=== PATIENT | male | born 1970 | race Caucasian/White ===

== ENCOUNTER 2017-04-01 16:19 | Emergency (ER) | payer BC, OTHER ==
[~2017-04-01] VITALS: Ht 185.4 cm; Wt 118.0 kg
[~2017-04-01 16:19] MED LIST: ASPEC81 PO; CIPR-255 PO; KETO2CRE14 TOP; NTRSLP4 SL; TERB250T47 PO
[2017-04-01 16:23] VITALS: TEMP 36.8; Ht 185.4 cm; Wt 118.0 kg
[2017-04-01] MEDS ORDERED: HYDROCODONE/ACETAMOPHEN 5/325MG TAB PO STA (16:50)
--- NOTE | 2017-04-01 17:53 | DIAGNOSTIC IMAGING REPORT ---
LEFT FOOT 3 VIEWS HISTORY: fall, left foot injury COMPARISON: Left foot 08/04/2015. FINDINGS: There are fractures through the necks of the second through fifth metatarsals demonstrating mild lateral displacement and lateral angulation. This is most pronounced at the fourth metacarpal. The Lisfranc joint appears intact. Soft tissue swelling at the MTP joints. No radiopaque foreign bodies. IMPRESSION: Distal second through fifth metatarsal fractures. Electronically signed by: Eron Holland M.D. 04/01/2017 5:52 PM Dictated Date/Time: 04/01/2017 5:50 PM
--- NOTE | 2017-04-01 17:55 | DIAGNOSTIC IMAGING REPORT ---
LUMBAR SPINE 5 VIEWS HISTORY: fall, back pain COMPARISON: Lumbar spine 05/26/2014. FINDINGS: There is no fracture. No subluxation. There is posterior decompression and fusion from L3 through S1 with pedicle screws and rods. The hardware appears intact. Mild disc space narrowing at L1-L2 and L2-L3. IMPRESSION: No acute fracture or subluxation within the lumbar spine. Postoperative and degenerative changes are again noted. Electronically signed by: Eron Holland M.D. 04/01/2017 5:54 PM Dictated Date/Time: 04/01/2017 5:52 PM
[2017-04-01] MEDS ORDERED: MoRPHine SULFATE 10 MG/ML CARP/VIAL IM STA (18:53)
--- NOTE | 2017-04-01 18:57 | EMERGENCY ROOM VISIT NOTE ---
ED Visit Note First contact with patient: 16:26 CHIEF COMPLAINT: Foot pain HISTORY OF PRESENT ILLNESS: This 46-year-old male patient presents to the emergency department ambulatory complaining of left foot pain and low back pain after a fall which occurred earlier today. The patient states that he was fishing and standing on a rock when the rock kicked out from under him and he fell, rolling the left foot and falling onto the low back. The patient rates the pain as sharp and 10/10. The patient has knots take any medication for relief of the pain. The patient is able to walk. No numbness or weakness. No ankle pain. There are no lacerations of the foot. The patient is able to move all of their toes and their ankle without pain. Now previous fracture to this foot. He denies any other injuries. REVIEW OF SYSTEMS: GENERAL: A 6 system review of systems was completed with positives and pertinent negatives in the HPI. ALLERGIES: Penicillins MEDICATIONS: No chronic medications PMH: No significant past medical history. SOCIAL HISTORY: The patient lives locally with family. He is a smoker. PHYSICAL EXAM: Vital Signs: Reviewed Nurse's notes, vital signs stable. GENERAL : This is a 46-year-old male, in no acute distress, but appears in pain, well- developed, well-nourished. MUSCULOSKELETAL: There is no visual deformity of the left foot. There is a hematoma over the lateral aspect of the dorsal left foot with significant tenderness over the second through fifth MTPs. There are no lacerations. There is no tenderness over the lateral or medial malleolus. No tenderness of the tib/fib. Patient is able to move all toes. Normal sensation to touch over the toes. The skin is intact and there are no lacerations or puncture wounds. Dorsalis pedis pulse 2+. Capillary refill less than 2 seconds. There is mild tenderness to palpation of the lumbar spinous processes. Full range of motion of bilateral lower extremity. RADIOGRAPHIC FINDINGS: LEFT FOOT 3 VIEWS HISTORY: fall, left foot injury COMPARISON: Left foot 08/04/2015. FINDINGS: There are fractures through the necks of the second through fifth metatarsals demonstrating mild lateral displacement and lateral angulation. This is most pronounced at the fourth metacarpal. The Lisfranc joint appears intact. Soft tissue swelling at the MTP joints. No radiopaque foreign bodies. IMPRESSION: Distal second through fifth metatarsal fractures. LUMBAR SPINE 5 VIEWS HISTORY: fall, back pain COMPARISON: Lumbar spine 05/26/2014. FINDINGS: There is no fracture. No subluxation. There is posterior decompression and fusion from L3 through S1 with pedicle screws and rods. The hardware appears intact. Mild disc space narrowing at L1-L2 and L2-L3. IMPRESSION: No acute fracture or subluxation within the lumbar spine. Postoperative and degenerative changes are again noted. EMERGENCY DEPARTMENT COURSE: I examined the patient. He was given 1 tablet [place] for pain. An X-ray of the left foot and lumbar spine were reviewed by myself and radiology and reveal the above fractures of the foot. The patient stated that he was not able to have his foot splinted until he received further medication and at that time was given IM morphine. The patient was placed in an Ortho-Glass posterior short leg splint and instructed on the use of crutches. He was referred to orthopedics. He was given a prescription and home pack of [place]. [facility] no [facility] identified. The patient verbalized understanding of my assessment and treatment plan. The patient was discharged home in good condition. DIAGNOSIS: Metatarsal fractures, lumbar contusion Problem List Medical Problems: (1) back surgery 05/13/2012 Status: Resolved (2) Fusion of posterior lumbar spine Status: Resolved (3) Heart disease Status: Chronic (4) Hyperlipidemia Nec/Nos Status: Chronic (5) Influenza Status: Resolved (6) Low back pain Status: Resolved (7) LUMBAR DISC DISPLACEMENT Status: Resolved (8) SPINAL STENOSIS, LUMBAR REG, W/OUT NEUROGENIC CLAUDICATION Status: Resolved (9) SPONDYLOLISTHESIS Status: Resolved Surgical Problems: (1) History of cardiac catheterization Status: Resolved Current/Historical Medications Scheduled PRN Hydrocodone-Acetaminophen (Lortab 5-325 mg), 1-2 TABS PO Q4-6 PRN for Pain Allergies Coded Allergies: Penicillins (Verified Allergy, Mild, PT STATES UNKNOWN REACTION, 04/02/17) RECEIVED ROCEPHIN X1 DOSE IN ED 07/2015 Vital Signs Date Time Temp Pulse Resp B/P Pulse Ox O2 Delivery O2 Flow Rate FiO2 04/01/17 19:37 112 20 116/86 97 04/01/17 16:23 36.8 89 16 161/95 98 Room Air Medications Administered Medications (Trade) Dose Ordered Sig/Sydni Route Start Time Stop Time Status Last Admin Dose Admin Acetaminophen/ Hydrocodone Bitart ([place] 5/325 Tab) 1 tab NOW STAT PO 04/01/17 16:50 04/01/17 16:51 DC 04/01/17 17:39 1 TAB Morphine Sulfate (MoRPHine SULFATE INJ) 6 mg NOW STAT IM 04/01/17 18:53 04/01/17 18:54 DC 04/01/17 19:00 6 MG Oxycodone/ Acetaminophen (Percocet 5/ 325MG Home Pack) 1 homepack UD ONCE PO 04/01/17 19:00 04/01/17 19:01 DC 04/01/17 19:26 1 HOMEPACK Departure Information Impression Primary Impression: Multiple closed fractures of metatarsal bone of left foot Additional Impression: Lumbar contusion Dispostion Home / Self-Care Condition GOOD Referrals No Doctor, Assigned (PCP) Ollie Thayer M.D. Patient Instructions My [facility] Additional Instructions You have been treated in the Emergency Department for a foot fracture. You have received pain medicine in the emergency department which impairs your ability to operate a vehicle. It is illegal for you to drive after receiving these medicines. You have been prescribed Percocet to be used for pain control. This is a narcotic medication. You cannot drive or consume alcohol while on this medicine. This medicine should only be used for pain that cannot be controlled with momo-pew-yiovpns pain medicines. For pain control, you can use the following zbwz-zcy-omdrusk medicines (if >12 yo): - Regular strength (325mg/tab) Tylenol (acetaminophen) 2 tabs every 4-6 hours as needed. Do not exceed 12 tablets in a 24 hour period. Avoid taking more than 4 grams (4000 mg) of Tylenol per day. This includes any other sources of acetaminophen you may take on a regular basis. - Regular strength (200 mg/tab) Advil (ibuprofen) 1-2 tabs every 4-6 hours as needed. Do not exceed a dose of 3200 mg per day. If this is a recent injury (<24 hrs), ice can be applied to the area of pain for the first 3 days to help decrease pain and inflammation. You have been provided the number for an Orthopaedic Surgeon. You should call this number as soon as possible to establish a follow-up visit from today's Emergency Department visit. Keep the ankle brace/splint in place until cleared by Orthopedics. Use the crutches you have been provided to keep ALL weight off of the ankle until weight bearing is tolerable. Return to the Emergency Department if your current symptoms worsen despite treatment course outlined above, or if you develop any of the following symptoms : intractable pain despite aforementioned treatment course or new onset of numbness or tingling of the foot. Problem Qualifiers Primary Impression: Multiple closed fractures of metatarsal bone of left foot Encounter type: initial encounter Qualified Codes: S92.302A - Fracture of unspecified metatarsal bone(s), left foot, initial encounter for closed fracture Additional Impression: Lumbar contusion Encounter type: initial encounter Qualified Codes: S30.0XXA - Contusion of lower back and pelvis, initial encounter
[2017-04-01] MEDS ORDERED: PERCOCET HOME PACK PO ONE (19:00)
[2017-04-01 19:37] VITALS: BP 116/86; PULSE 112; O2SAT 97
[2017-04-02] MEDS ORDERED: HYDR-4330 PO (13:41)
== END 2017-04-01 19:38 | disposition home or self-care (01) ==
LOC: C.EDB 16:20 → C.EDD 19:38
DX: S92.322A Displaced fracture of second metatarsal bone, left foot, initial encounter for closed fracture (principal); S92.332A Displaced fracture of third metatarsal bone, left foot, initial encounter for closed fracture; S92.342A Displaced fracture of fourth metatarsal bone, left foot, initial encounter for closed fracture; S92.352A Displaced fracture of fifth metatarsal bone, left foot, initial encounter for closed fracture; S30.0XXA Contusion of lower back and pelvis, initial encounter; W19.XXXA Unspecified fall, initial encounter; F17.200 Nicotine dependence, unspecified, uncomplicated; E78.5 Hyperlipidemia, unspecified; I51.9 Heart disease, unspecified; M48.06 Spinal stenosis, lumbar region; Z98.1 Arthrodesis status; Z98.890 Other specified postprocedural states; Z88.0 Allergy status to penicillin

== ENCOUNTER → 2017-04-02 | Outpatient (CLI) | payer BC ==
[~2017-04-02] MED LIST changes: +AMLO-110 PO; +ASPI81TA28 PO; +ATOR-22 PO; +CLIN300C2 PO; +HYDR-4330 PO; +METO25TA3 PO; +OXYC-57 PO; +SULF800T23 PO
--- NOTE | 2017-04-02 10:54 | DIAGNOSTIC IMAGING REPORT ---
LEFT FOOT 2 VIEWS CLINICAL HISTORY: Left foot metatarsal fractures. COMPARISON: 04/01/2017 DISCUSSION: Oblique views are provided for interpretation. There is a fiberglass splint present. There are fractures of the second through fifth metatarsal necks. There is dorsal soft tissue swelling. IMPRESSION: Oblique only study demonstrating fractures of the second through fifth metatarsal necks. Electronically signed by: David Khalil M.D. 04/02/2017 10:53 AM Dictated Date/Time: 04/02/2017 10:51 AM
--- NOTE | 2017-04-02 12:16 | DIAGNOSTIC IMAGING REPORT ---
LEFT FOOT 2 VIEWS CLINICAL HISTORY: WEIGHT BEARING B/L FEET pain. Preoperative evaluation. Fracture. COMPARISON: 04/01/2017 DISCUSSION: Angled fractures of the left second through fifth distal metatarsals. Bony alignment is unchanged with the patient standing projections. No additional acute bony abnormalities identified. There is no evidence for soft tissue swelling. IMPRESSION: Angled fractures of the second through fifth metatarsals. No major change in alignment as compared to the prior exam. Electronically signed by: Rich Davidson M.D. 04/02/2017 12:15 PM Dictated Date/Time: 04/02/2017 12:13 PM
== END | disposition home or self-care (01) ==
LOC: C.RDSM 13:31
PROVIDERS: ATTEND Physician Assistant
DX: S92.342A Displaced fracture of fourth metatarsal bone, left foot, initial encounter for closed fracture (principal); S92.322A Displaced fracture of second metatarsal bone, left foot, initial encounter for closed fracture; S92.332A Displaced fracture of third metatarsal bone, left foot, initial encounter for closed fracture; S92.352A Displaced fracture of fifth metatarsal bone, left foot, initial encounter for closed fracture; X58.XXXA Exposure to other specified factors, initial encounter

== ENCOUNTER → 2017-04-02 | Outpatient (CLI) | payer BC ==
[2017-04-02 13:22] LABS: HEMATOCRIT 43.3 % (42-52); MEAN CELL VOLUME 93.3 fL (80-100); MEAN CORPUSCULAR HGB CONC 33.3 g/dl (32-36); PLATELET COUNT 238 K/uL (130-400); RED BLOOD COUNT 4.64 M/uL (4.7-6.1); WHITE BLOOD COUNT 12.48 K/uL (4.8-10.8)
[2017-04-02 14:08] LABS: BLOOD UREA NITROGEN 9 mg/dl (7-18); CARBON DIOXIDE 25 mmol/L (21-32); CHLORIDE 106 mmol/L (98-107); CREATININE 0.93 mg/dl (0.60-1.40); POTASSIUM 4.2 mmol/L (3.5-5.1); SODIUM 139 mmol/L (136-145)
== END | disposition home or self-care (01) ==
LOC: C.CPL 12:30
PROVIDERS: ATTEND Physician Assistant
DX: S92.342A Displaced fracture of fourth metatarsal bone, left foot, initial encounter for closed fracture (principal); X58.XXXA Exposure to other specified factors, initial encounter

== ENCOUNTER → 2017-04-03 | Day surgery (SDC) | payer BC ==
[2017-04-02 13:42] VITALS: BMI 34.0
[~2017-04-03] VITALS: Ht 185.4 cm; Wt 115.9 kg
[~2017-04-03] MED LIST changes: -ASPEC81 PO; +BUPIVACAINE 0.5 % 5 MG/1 ML MPF 30ML VIAL ONE; +BUPIVACAINE 0.5 % 5 MG/1 ML PF 10ML VIAL ONE; -CIPR-255 PO; +CLINDAMYCIN 900MG IV SCH; +CLINDAMYCIN IV 900 MG in DEXTROSE 5% ADD-VANTAGE 100ML 100 ML IV SCH; +CLONIDINE HCL 100 MCG/ML SYRINGE ONE; +DEXAMETHASONE SOD INJ 4 MG/ML VIAL ONE; +FENTANYL CITRATE INJ 50 MCG/1 ML 2 ML VIAL IV PRN; +FENTANYL CITRATE INJ 50 MCG/1 ML 2 ML VIAL ONE; +GLYCOPYRROLATE INJ 0.2 MG/ML VIAL ONE; -KETO2CRE14 TOP; +LACTATED RINGER'S 1000ML 1,000 ML IV PRN; +LACTATED RINGER'S 1000ML 1,000 ML IV SCH; +LIDOCAINE HCL 2% 2 ML VIAL (20MG/ML) ONE; +LIDOCAINE/EPINEPHRINE 1% 20 ML VIAL ONE; +MIDAZOLAM HCL 1 MG/ML 2ML VIAL ONE; +MoRPHine SULFATE 2 MG/ML CARP IV PRN; +NEOSTIGMINE METHYLSULFATE 5 MG/5 ML SYR ONE; -NTRSLP4 SL; +ONDANSETRON INJ 2 MG/ML 2 ML VIAL IV PRN; +ONDANSETRON INJ 2 MG/ML 2 ML VIAL ONE; +OXYCODONE/ACETAMINOPHEN 5-325 TAB PO PRN; +PHENYLEPHRINE HCL INJ 10 MG/ML VIAL ONE; +PROPOFOL IV EMULSION 10 MG/ML 20 ML VIAL IV ONE; +ROCURONIUM BROMIDE 10 MG/ML 5 ML VIAL ONE; +SODIUM CHLORIDE 0.9% 1000ML 1,000 ML IV SCH; -TERB250T47 PO
--- NOTE | 2017-04-03 09:32 | History and Physical ---
History & Physical Date April 03, 2017. Chief Complaint Left foot pain History of Present Illness The patient is a 46 year old male with complaints of left foot pain s/p fall while fishing. Admits to pain, swelling, and inability to bear full weight. No prior history of injury to left lower extremity in the past. Denies numbness or tingling, no calf pain. Past Medical/Surgical History Medical Problems: (1) back surgery 05/13/2012 (2) Fusion of posterior lumbar spine (3) Heart disease (4) Hyperlipidemia Nec/Nos (5) Influenza (6) Low back pain (7) LUMBAR DISC DISPLACEMENT (8) SPINAL STENOSIS, LUMBAR REG, W/OUT NEUROGENIC CLAUDICATION (9) SPONDYLOLISTHESIS Surgical Problems: (1) History of cardiac catheterization (2) Lumbar spine fusion (3) Right wrist ORIF Family History: (1) Noncontributory Social History: (1) Smokes 1/2 pack cigarettes over past 27 years, no ETOH or illegal drug use. Currently disabled due to his back issues. Additional History Hepatic Disease: No Endocrine Disorder: No Kidney Disease: No Hypertension: No Heart Disease: No Bleeding Tendencies: No Infectious Diseases: No Other: Denies headache, chest pain, shortness of breath, fevers, chills, night sweats. Allergies Coded Allergies: Penicillins (Verified Allergy, Mild, PT STATES UNKNOWN REACTION, 04/02/17) RECEIVED ROCEPHIN X1 DOSE IN ED 07/2015 Home Medications Scheduled PRN Hydrocodone-Acetaminophen (Lortab 5-325 mg), 1-2 TABS PO Q4-6 PRN for Pain Physical Examination Skin: warm/dry, + pertinent finding (notable swelling and eccymosis) Eyes: normal inspection ENT: normal ENT inspection Head: normocephalic Neck: supple, no adenopathy Respiratory/Chest: lungs clear Cardiovascular: regular rate, rhythm, no edema, no murmur Abdomen / GI: normal bowel sounds, non tender Extremities: + pertinent finding (tenderness over metatarsal heads 2-5 both volar and dorsal aspect, ankle atraumatic) Neurologic/Psych: no motor/sensory deficits, oriented x 3 Diagnosis Left foot metatarsal fractures two through five Plan of Treatment Fern will undergo a left foot open reduction internal fixation versus closed reduction percutaneous pinning of multiple metatarsal fractures two through five , scheduled for5/16/17 at the [facility]. He obtain preop lab testing at the [facility] outpatient lab, including EKG, CBC, Lytes, BUN, Creatinine. Percocet prescribed for post op pain. PDMP reviewed and no issues regarding prescription drugs being dispensed. Crutches and walker available at home. Follow up at [facility] 04/06/17 and 04/17/17. Questions call [phone].
[2017-04-03 11:52] VITALS: BP 132/89; PULSE 89; TEMP 36.8; O2SAT 95; Ht 185.4 cm; Wt 115.9 kg
--- NOTE | 2017-04-03 12:56 | History & Physical Bridge Note ---
H&P Re-Evaluation Bridge Note: I have examined the patient, reviewed the History & Physical and in the interval since the performance of the History & Physical I have noted the following changes of clinical significance: No changes noted
--- NOTE | 2017-04-03 15:25 | DIAGNOSTIC IMAGING REPORT ---
LEFT FOOT 2 VIEWS CLINICAL HISTORY: ORIF LEFT FOOT fracture COMPARISON: 04/02/2017 DISCUSSION: Pin fixation of the fracture of the distal fourth metatarsal. Remaining distal metatarsal fractures are unchanged in appearance. There is no evidence for soft tissue swelling. IMPRESSION: Pin fixation of a distal fourth metatarsal fracture Electronically signed by: Rich Davidson M.D. 04/03/2017 3:24 PM Dictated Date/Time: 04/03/2017 3:22 PM
--- NOTE | 2017-04-03 15:35 | Discharge Instructions ---
Discharge Instructions Date of Service April 03, 2017. Admission Reason for Admission: Left Foot Metatarsal Fracture 2-5 Discharge Discharge Diagnosis / Problem: same Discharge Goals Goal(s): Decrease discomfort, Improve function, Increase independence Activity Recommendations Activity Limitations: as noted below Lifting Limitations: none Exercise/Sports Limitations: none May Resume Sexual Activity: when tolerated Shower/Bathe: no limitations, keep incision dry Driving or Machine Use: resume 1 day after discharge Weightbearing Status: Left weightbearing (as tolerated) keep foot dry, you may bear weight on your heel in the special boot, use crutches or walker, elevate, ice . Instructions / Follow-Up Instructions / Follow-Up Sunday as scheduled Current Hospital Diet resume previous diet Discharge Diet Recommended Diet: Regular Diet Procedures Procedures Performed: Closed Reduction, Percutaneous Pinning Left Metatarsals 2-5 Pending Studies Studies pending at discharge: no Work Instructions Lifting Limitations: none Medical Emergencies . Who to Call and When: Medical Emergencies: If at any time you feel your situation is an emergency, please call 911 immediately. . Non-Emergent Contact Non-Emergency issues call your: Primary Care Provider, Surgeon Call Non-Emergent contact if: you have a fever, temperature is above 101.5, your pain is not controlled, your pain is worsening, your pain is concerning you , wound has increased drainage, wound has increased redness, you have any medication questions . "Provider Documentation" section prepared by Dino Akins. . VTE Core Measure Inpt VTE Proph given/why not?: Treatment not indicated
--- NOTE | 2017-04-03 15:38 | [facility] Post Operative Brief Note ---
Immediate Operative Summary Operative Date April 03, 2017. Pre-Operative Diagnosis Left metatarsal fractures of 2nd, third, fourth, and fifth toes Post-Operative Diagnosis Same Procedure(s) Performed Closed Reduction, Percutaneous Pinning Left fourth Metatarsal Surgeon Dr Akins Crutch Maker Surgeon(s) Victor Manuel Sweet PA-C / Des Hodge MD Estimated Blood Loss 5 cc Findings metatarsal fractures 2-5 Specimens NONE Drains 0 Anesthesia LMA with popliteal block Complication(s) None Disposition Recovery Room / PACU
--- NOTE | 2017-04-03 15:48 | [facility] Operative Report ---
Operative Report Operative Date April 03, 2017. Pre-Operative Diagnosis Left metatarsal fractures of 2nd, third, fourth, and fifth toes Post-Operative Diagnosis Same Procedure(s) Performed Closed Reduction, Percutaneous Pinning Left fourth Metatarsal Surgeon Dr Akins Grid Trimmer Surgeon(s) Victor Manuel Sweet PA-C / Des Hodge MD Estimated Blood Loss 5 cc Specimens NONE Disposition PCU I attest to the content of the Intraoperative Record and any orders documented therein. Any exceptions are noted below.
--- NOTE | 2017-04-03 16:01 | Anesthesiology Progress Note ---
Anesthesia Post Op Note Date & Time April 03, 2017 at 16:00 Vital Signs Pain Intensity: 0 Vital Signs Past 12 Hours Date Time Temp Pulse Resp B/P Pulse Ox O2 Delivery O2 Flow Rate FiO2 04/03/17 15:55 73 18 125/85 99 Nasal Cannula 3 04/03/17 15:45 70 14 126/87 99 Nasal Cannula 3 04/03/17 15:35 80 16 135/83 99 Nasal Cannula 3 04/03/17 15:28 36.6 82 16 130/88 99 Nasal Cannula 3 04/03/17 11:52 36.8 89 20 132/89 95 Notes Mental Status: alert / awake / arousable, participated in evaluation Pt Amnestic to Procedure: Yes Nausea / Vomiting: adequately controlled Pain: adequately controlled Airway Patency, RR, SpO2: stable & adequate BP & HR: stable & adequate Hydration State: stable & adequate Anesthetic Complications: no major complications apparent Pt doing well. No pain.
[2017-04-03 16:15] VITALS: BP 118/81; PULSE 67; TEMP 36.5; O2SAT 97
[2017-04-03 16:45] VITALS: BP 130/88; PULSE 82; O2SAT 98
[2017-04-03 17:15] VITALS: BP 142/85; PULSE 76; TEMP 36.6; O2SAT 96
--- NOTE | 2017-04-03 17:16 | OPERATIVE REPORT ---
DATE OF OPERATION: 04/03/2017 PREOPERATIVE DIAGNOSIS: Left foot second through fifth metatarsal neck fractures. POSTOPERATIVE DIAGNOSIS: Same. PROCEDURE PERFORMED: Closed reduction percutaneous pinning of the left foot fourth metatarsal neck fracture. SURGEON: Dr. Akins. BUSGIRL: Des Hodge MD and Victor Manuel Sweet PA-C ANESTHESIA: Popliteal block, laryngeal mask anesthetic. INDICATIONS OF PROCEDURE: The patient is a 46-year-old male status post a fall resulting in the aforementioned injuries. The second and fifth metatarsal neck fractures are well aligned. The third is mildly displaced. The fourth is markedly displaced and angulated. The goals of the surgical procedure are to do closed reduction percutaneous pinning of the fourth metatarsal neck fracture either in a retrograde or antegrade fashion. Treatment of the third metatarsal or others may be necessary as indicated based upon preoperative findings. The procedure was moved to the main hospital from the surgery center due to staff scheduling. PROCEDURE IN DETAIL: Informed consent was obtained. The patient identified as Lesley Pride. He identified the operative site as the left foot. I marked with my initials. A preop surgical time out was performed. A preop dose of IV antibiotics were given. He was taken to the operating room, positioned supine on the operating room table. A bump was placed under the left hip. A tourniquet was applied to the left thigh but not inflated during the case. The left leg was prepped and draped in the usual sterile fashion. There was some bruising on the plantar and dorsal aspect of the forefoot with swelling. Prior to surgery, he had intact capillary refill less than 2 seconds in all toes, tenderness to palpation mainly in the forefoot area. DVT prophylaxis intraoperatively with foot pumps, postoperatively with early patient mobility. The procedure began by applying fingertrap traction to the 4th and 3rd digits. The fourth was aided by prewrapping it in a Coban to give it greater diameter and increase traction. AP fluoroscopic image was utilized to localize the fracture. There appeared to be some capsular injury to the fourth metatarsophalangeal joint as there was distraction through the joint asymmetric to the adjacent metatarsophalangeal joints and less correction of fracture angulation. A 0.045 inch K-wire was then under fluoroscopic guidance percutaneously placed by hand dorsally and laterally to push the metatarsal head medially. This was accomplished and a second pin was then used to transfix this in position. The pin was placed plantar and lateral and engaged the metatarsal head. Dorsal displacement of the metatarsal neck fracture was also corrected with a percutaneous anterior pin. The fixation pin was then driven across the metatarsal head and into the adjacent metatarsal shaft. The positioning of the pin was such that it was as far to the periphery of the head as possible. The angulation of the pin was such that it likely missed the shaft of the fourth metatarsal, but engaged the third metatarsal in a bicortical fashion. Fluoroscopic images confirmed that the angulation and displacement had been corrected, the length was well maintained and the pin was in good position in AP, lateral and oblique fluoroscopic images. I then placed an additional pin percutaneously through the plantar and medial aspect of the fourth metatarsophalangeal joint engaging the medial sulcus of the head and then transversing up the shaft of the fourth metatarsal. This resulted in additional fixation. A 0.045 inch K-wire was utilized. Positioning was confirmed in multiplanar fluoroscopy. The second and fifth metatarsal neck fracture remained anatomically aligned, the third metatarsal neck fracture showed a trace bit of shortening, but otherwise minimal displacement and no significant angulation and therefore these other fractures were left as is. Heeler Machine fluoroscopic images were obtained. The foot was cleaned with wet and dry sponges. Jurgan balls were applied. The pins were cut outside the skin and bent short as necessary. A bulky dressing to protect the pins and promote edema drainage was applied over the foot and up to the ankle. There were fluffs placed between the toes. The patient was then applied into a podiatry type open forefoot shoe with a ring around the forefoot to protect the pins and a buildup pad under the heel to allow weightbearing through the heel. The patient awakened from anesthesia without difficulty, taken to recovery in stable condition. There were no specimens, complications. Counts were correct at the end of case. Blood loss was minimal. At the conclusion of the operation, I spoke to patient's family by phone and discussed with them my findings and recommendations. He will need to elevate and ice. He will take his medication for pain. He can shower but will need to keep the foot clean and dry. He will follow up Sunday for wound check and pin care. The pins will be left in for 3-4 weeks. He may bear weight as tolerated using crutches or walker on his heel. I attest to the content of the Intraoperative Record and any orders documented therein. Any exceptio ns are noted below.
== END | disposition home or self-care (01) ==
LOC: C.ACU 11:22
PROVIDERS: ATTEND Physical Medicine & Rehabilitation Sports Medicine
DX: S92.332A Displaced fracture of third metatarsal bone, left foot, initial encounter for closed fracture (principal); S92.342A Displaced fracture of fourth metatarsal bone, left foot, initial encounter for closed fracture; S92.325A Nondisplaced fracture of second metatarsal bone, left foot, initial encounter for closed fracture; S92.345A Nondisplaced fracture of fourth metatarsal bone, left foot, initial encounter for closed fracture; W19.XXXA Unspecified fall, initial encounter; E78.5 Hyperlipidemia, unspecified; F17.210 Nicotine dependence, cigarettes, uncomplicated; Z98.1 Arthrodesis status

== ENCOUNTER → 2017-04-06 | Outpatient (CLI) | payer BC ==
[~2017-04-06] MED LIST changes: -BUPIVACAINE 0.5 % 5 MG/1 ML MPF 30ML VIAL ONE; -BUPIVACAINE 0.5 % 5 MG/1 ML PF 10ML VIAL ONE; -CLINDAMYCIN 900MG IV SCH; -CLINDAMYCIN IV 900 MG in DEXTROSE 5% ADD-VANTAGE 100ML 100 ML IV SCH; -CLONIDINE HCL 100 MCG/ML SYRINGE ONE; -DEXAMETHASONE SOD INJ 4 MG/ML VIAL ONE; -FENTANYL CITRATE INJ 50 MCG/1 ML 2 ML VIAL IV PRN; -FENTANYL CITRATE INJ 50 MCG/1 ML 2 ML VIAL ONE; -GLYCOPYRROLATE INJ 0.2 MG/ML VIAL ONE; -LACTATED RINGER'S 1000ML 1,000 ML IV PRN; -LACTATED RINGER'S 1000ML 1,000 ML IV SCH; -LIDOCAINE HCL 2% 2 ML VIAL (20MG/ML) ONE; -LIDOCAINE/EPINEPHRINE 1% 20 ML VIAL ONE; -MIDAZOLAM HCL 1 MG/ML 2ML VIAL ONE; -MoRPHine SULFATE 2 MG/ML CARP IV PRN; -NEOSTIGMINE METHYLSULFATE 5 MG/5 ML SYR ONE; -ONDANSETRON INJ 2 MG/ML 2 ML VIAL IV PRN; -ONDANSETRON INJ 2 MG/ML 2 ML VIAL ONE; -OXYCODONE/ACETAMINOPHEN 5-325 TAB PO PRN; -PHENYLEPHRINE HCL INJ 10 MG/ML VIAL ONE; -PROPOFOL IV EMULSION 10 MG/ML 20 ML VIAL IV ONE; -ROCURONIUM BROMIDE 10 MG/ML 5 ML VIAL ONE; -SODIUM CHLORIDE 0.9% 1000ML 1,000 ML IV SCH
--- NOTE | 2017-04-06 10:50 | DIAGNOSTIC IMAGING REPORT ---
LEFT FOOT 4 VIEWS CLINICAL HISTORY: Postoperative examination. FINDINGS: 4 views of left foot are compared to study dated 04/02/2017. The skeletal structures are well mineralized. Again seen are angulated fractures involving the necks of the second through fifth metatarsals. 2 pins have been placed through the fourth metatarsal fracture. There is persistent angulation. No new fracture is seen. There is significant soft tissue edema in the forefoot. The joint spaces of the foot appear maintained. There is no radiographic evidence of Lisfranc injury. IMPRESSION: 1. Again seen are angulated fractures through the second through fifth metatarsal necks. 2. Postoperative change from pinning of the fourth metatarsal fracture as above. Electronically signed by: Philipp Nunez M.D. 04/06/2017 10:49 AM Dictated Date/Time: 04/06/2017 10:47 AM
== END | disposition home or self-care (01) ==
LOC: C.RDSM 14:39
PROVIDERS: ATTEND Physician Assistant
DX: S92.342D Displaced fracture of fourth metatarsal bone, left foot, subsequent encounter for fracture with routine healing (principal); X58.XXXA Exposure to other specified factors, initial encounter

== ENCOUNTER → 2017-04-17 | Outpatient (CLI) | payer BC | END | disposition home or self-care (01) | LOC: C.RDSM 10:10 | PROVIDERS: ATTEND Physical Medicine & Rehabilitation Sports Medicine | DX: R52 Pain, unspecified (principal) ==

== ENCOUNTER → 2017-04-30 | Outpatient (CLI) | payer BC | END | disposition home or self-care (01) | LOC: C.RDSM 15:36 | PROVIDERS: ATTEND Physical Medicine & Rehabilitation Sports Medicine | DX: Z98.890 Other specified postprocedural states (principal) ==

== ENCOUNTER 2017-05-20 20:00 | Emergency (ER) | payer BC ==
[~2017-05-20] VITALS: Ht 182.9 cm; Wt 118.0 kg
[~2017-05-20 20:00] MED LIST changes: -AMLO-110 PO; -ASPI81TA28 PO; -ATOR-22 PO; -CLIN300C2 PO; -METO25TA3 PO; -OXYC-57 PO; -SULF800T23 PO
[2017-05-20 20:02] VITALS: Ht 182.9 cm; Wt 118.0 kg
[2017-05-20] MEDS ORDERED: SEPTRA DS HOME PACK 1 EA VIAL PO STA (20:36)
[2017-05-20] MEDS ORDERED: SULF800T23 PO (20:40)
--- NOTE | 2017-05-20 20:41 | EMERGENCY ROOM VISIT NOTE ---
History First contact with patient: 20:06 Chief Complaint: RASH Stated Complaint: RASH ON LEFT FOOT History of Present Illness The patient is a 46 year old male who presents to the Emergency Room with complaints of "Rash". The patient states that he has been wearing a postop shoe on his left foot following a surgery that was performed by [facility] orthopedics. He states that he has been healing well, however the past [place] in the [place]. He states that he developed a small rash on the left anterior foot over the past few days and has been worsening. His accompanying states that they did remove what they believe to be a poison relief from the shoe. The patient points to the anterior portion of the foot small little pustules as a location of pain that he rates as a 6/10. He states he has tried calamine lotion, and peroxide with minimal relief. His tetanus is up-to-date. He denies any easy bleeding, or bleeding from the gums. Review of Systems A complete 6-point Review of Systems was discussed with the patient, with pertinent positives and negatives listed in the History of Present Illness. All remaining Review of Systems questions can be considered negative unless otherwise specified. Past Medical/Surgical History Medical Problems: (1) back surgery 05/13/2012 (2) Fusion of posterior lumbar spine (3) Heart disease (4) Hyperlipidemia Nec/Nos (5) Influenza (6) Low back pain (7) LUMBAR DISC DISPLACEMENT (8) SPINAL STENOSIS, LUMBAR REG, W/OUT NEUROGENIC CLAUDICATION (9) SPONDYLOLISTHESIS Surgical Problems: (1) History of cardiac catheterization Family History Cancer Heart disease Social History Smoking Status: Current Every Day Smoker Alcohol Use: occasionally Drug Use: none Marital Status: Housing Status: lives with family Occupation Status: employed Current/Historical Medications Scheduled Sulfa/Trimethoprim (Bactrim Ds 800MG/160MG), 1 TAB PO BID Scheduled PRN Hydrocodone-Acetaminophen (Lortab 5-325 mg), 1-2 TABS PO Q4-6 PRN for Pain Allergies Coded Allergies: Penicillins (Verified Allergy, Mild, PT STATES UNKNOWN REACTION, 04/03/17) RECEIVED ROCEPHIN X1 DOSE IN ED 07/2015 Physical Exam Vital Signs Date Time Temp Pulse Resp B/P (MAP) Pulse Ox O2 Delivery O2 Flow Rate FiO2 05/20/17 20:52 36.6 92 18 177/112 96 05/20/17 20:02 36.6 93 18 155/100 95 Room Air Physical Exam VITAL SIGNS - Vital signs and nursing notes were reviewed. Patient is afebrile , hypertensive at 155 100, non-tachycardic and is saturating well on room air 95 %. GENERAL -46-year-old male appearing his stated age who is in no acute distress. Communicates well with provider and answers questions appropriately. SKIN - there are small punctate raised pustules overlying hair follicles. There is no drainage noted. No cellulitic progression or evidence of lymphangitic streaking. The surgical incisions are well-healed and without signs of infection. Medical Decision & Procedures Medications Administered Medications (Trade) Dose Ordered Sig/Sydni Route Start Time Stop Time Status Last Admin Dose Admin Prednisone (PredniSONE TAB) 50 mg NOW STAT PO 05/20/17 20:18 05/20/17 20:19 DC 05/20/17 20:18 50 MG Diphenhydramine HCl (Benadryl Cap) 50 mg NOW STAT PO 05/20/17 20:18 05/20/17 20:19 DC 05/20/17 20:18 50 MG Trimethoprim/ Sulfamethoxazole (Sulfameth/ Trimeth Ds 800/ 160MG Home Pack) 1 homepack UD STAT PO 05/20/17 20:36 05/20/17 20:39 DC 05/20/17 20:36 1 HOMEPACK Medical Decision Patient was seen and evaluated as above. He presents to us today with what appears to be a localized folliculitis secondary to what was likely contact dermatitis. I suspect the patient's boot has rubbed the hair follicles irritating them and then have developed a small infection. For the itchiness/ pain at this time he'll be given Benadryl and prednisone and discharged home on Bactrim. I did discuss the case with my attending, who recommended the Bactrim. I do believe this is reasonable secondary to the patient's allergy. He is a follow-up with his family doctor regarding today's visit, and for his blood pressure. He was educated upon worrisome symptoms in which to return, had questions prior to discharge, and was discharged home in good condition. In evaluation treatment this patient following differential diagnoses were entertained: Folliculitis, contact dermatitis, poison sean/poison oak exposure, among others. I believe he is stable for management in the outpatient setting. Impression Primary Impression: Folliculitis Additional Impression: Contact dermatitis Departure Information Dispostion Home / Self-Care Condition GOOD Prescriptions Sulfa/Trimethoprim (Bactrim Ds 800MG/160MG) Tab 1 TAB PO BID for 9 Days, #18 TAB Prov: David Brown PA-C 05/20/17 Referrals Valerie Vidal M.D. (MEDICAL) (PCP) Patient Instructions My [facility] Additional Instructions You were seen in the emergency Department for a small infection/irritation of your foot. You have prescribed Bactrim one tablet every 12 hours for 10 days. This is to help with a small infection. It is recommended to place antibiotic ointment on this for the next 1-2 days and may use bacitracin or Neosporin both of which are [id number]. Please wear clean cotton white socks with a postop shoe. Please follow-up with your family doctor regarding today's visit. Please return to the emergency department with any new/concerning symptoms. Problem Qualifiers
[2017-05-20 20:52] VITALS: BP 177/112; PULSE 92; TEMP 36.6; O2SAT 96
== END 2017-05-20 20:53 | disposition home or self-care (01) ==
LOC: C.EDB 20:01 → C.EDD 20:53
DX: L73.9 Follicular disorder, unspecified (principal); L25.9 Unspecified contact dermatitis, unspecified cause; I51.9 Heart disease, unspecified; E78.5 Hyperlipidemia, unspecified; M48.06 Spinal stenosis, lumbar region; Z82.49 Family history of ischemic heart disease and other diseases of the circulatory system; F17.200 Nicotine dependence, unspecified, uncomplicated

== ENCOUNTER → 2017-06-04 | Outpatient (CLI) | payer BC ==
[~2017-06-04] MED LIST changes: +AMLO-110 PO; +ASPI81TA28 PO; +ATOR-22 PO; +CLIN300C2 PO; +METO25TA3 PO; +OXYC-57 PO
--- NOTE | 2017-06-04 09:28 | DIAGNOSTIC IMAGING REPORT ---
LEFT FOOT MIN 3 VIEWS HISTORY:46 yearsMaleLEFT FOOT PAIN S/P SURGERY COMPARISON: Left foot radiographs 04/30/2017 TECHNIQUE: 3 views of the left foot FINDINGS: There has been interval removal of the pinning hardware within the fourth metatarsal seen on study dated 04/30/2017. There is worsening periarticular osteopenia notably about the second through fifth metatarsophalangeal joints. There is progressive healing of the mildly angulated fractures involving the second through fifth metatarsals in the distal metadiaphyseal portions. No new acute fracture or dislocation is identified. There is moderate soft tissue swelling about the dorsal forefoot. IMPRESSION: 1. Interval removal of the pinning hardware of the fourth metatarsal with dorsal forefoot soft tissue swelling. 2. Progressive healing callus of the second through fifth mildly angulated metatarsal fractures without change in alignment. 3. Worsening periarticular lucency about the forefoot compatible with disuse osteopenia. The above report was generated using voice recognition software. It may contain grammatical, syntax or spelling errors. Electronically signed by: Jericho Tejeda M.D. 06/04/2017 9:27 AM Dictated Date/Time: 06/04/2017 9:24 AM
== END | disposition home or self-care (01) ==
LOC: C.RDSM 13:21
PROVIDERS: ATTEND Physician Assistant
DX: Z98.890 Other specified postprocedural states (principal); M85.872 Other specified disorders of bone density and structure, left ankle and foot; S92.352A Displaced fracture of fifth metatarsal bone, left foot, initial encounter for closed fracture; S92.342A Displaced fracture of fourth metatarsal bone, left foot, initial encounter for closed fracture; S92.332A Displaced fracture of third metatarsal bone, left foot, initial encounter for closed fracture; S92.322A Displaced fracture of second metatarsal bone, left foot, initial encounter for closed fracture; X58.XXXA Exposure to other specified factors, initial encounter

== ENCOUNTER 2017-07-17 23:47 | Emergency (ER) | payer BC ==
[~2017-07-17] VITALS: Ht 180.3 cm; Wt 118.7 kg
[~2017-07-17 23:47] MED LIST changes: -AMLO-110 PO; -ASPI81TA28 PO; -ATOR-22 PO; -CLIN300C2 PO; -METO25TA3 PO; -OXYC-57 PO
[2017-07-17 23:50] VITALS: Ht 180.3 cm; Wt 118.7 kg
[2017-07-18] MEDS ORDERED: ACETAMINOPHEN 325 MG TAB PO STA (00:14)
[2017-07-18] MEDS ORDERED: HydrALAZINE HCL 20 MG/ML VIAL IV. STA (00:14)
[2017-07-18] MEDS ORDERED: ASPI81TA28 PO (00:27)
[2017-07-18] MEDS ORDERED: METO25TA3 PO (00:27)
[2017-07-18] MEDS ORDERED: ATOR-22 PO (00:28)
[2017-07-18] MEDS ORDERED: KETOROLAC TROMETHAMINE 30 MG/ML VIAL IV STA (00:42)
[2017-07-18 00:57] LABS: BASO % 0.3 %; BASO ABS # 0.04 K/uL (0-0.2); COMPLETE YES; EOS % 2.7 %; HEMATOCRIT 43.7 % (42-52); IG% 0.3 %; LYMPH % 26.7 %; LYMPH ABS # 3.36 K/uL (1.2-3.4); MEAN CELL VOLUME 92.4 fL (80-100); MEAN CORPUSCULAR HEMOGLOBIN 32.3 pg (25-34); MEAN PLATELET VOLUME 9.7 fL (7.4-10.4); MONO % 5.7 %; NEUT % 64.3 %; PLATELET COUNT 254 K/uL (130-400); RED BLOOD COUNT 4.73 M/uL (4.7-6.1); WHITE BLOOD COUNT 12.59 K/uL (4.8-10.8)
[2017-07-18 01:12] LABS: ALT/SGPT 36 U/L (12-78); AST/SGOT 20 U/L (15-37); BLOOD UREA NITROGEN 6 mg/dl (7-18); BUN/CREATININE RATIO 6.9 (10-20); CARBON DIOXIDE 28 mmol/L (21-32); CHLORIDE 107 mmol/L (98-107); CREATININE 0.93 mg/dl (0.60-1.40); GLUCOSE 94 mg/dl (70-99); SODIUM 139 mmol/L (136-145)
[2017-07-18] MEDS ORDERED: CLINDAMYCIN HCL 150 MG CAP PO ONE (01:15)
[2017-07-18] MEDS ORDERED: AMLODIPINE BESYLATE 5 MG TAB PO ONE (01:15)
[2017-07-18 01:20] LABS: ALKALINE PHOSPHATASE 148 U/L (45-117)
[2017-07-18] MEDS ORDERED: CLIN300C2 PO (02:39)
[2017-07-18] MEDS ORDERED: OXYC-57 PO (02:39)
[2017-07-18] MEDS ORDERED: AMLO-110 PO (02:40)
--- NOTE | 2017-07-18 02:43 | EMERGENCY ROOM VISIT NOTE ---
History Report prepared by Doloresiblee: Jesu Vidales Under the Supervision of: Dr. Antonietta Blancas M.D. First contact with patient: 23:57 Chief Complaint: FACIAL PAIN/INJURY Stated Complaint: SORE JAW/FACE,HEADACHES,NAUSEA History of Present Illness The patient is a 46 year old male who presents to the Emergency Room with complaints of constant right sided facial pain beginning 1 hour ago. He states that the pain is present from his upper cheek to his lower jaw. The patient rates his pain as a 10/10 in severity and describes it as "sharp". He states that his pain woke him up from his sleep. He also complains of vomiting, lightheadedness, subjective fever, and gum swelling. The patient denies any modifying factors. He denies any problems swallowing, or headache. He notes that he had similar pain in his teeth occur a few months ago, and was told by a dentist that he has a "bad tooth". The patient feels that he may have a dental abscess. He states that he had no pain prior to falling asleep tonight. He denies eating anything abnormal tonight. Source of History: patient Onset: 1 hour ago Position: head (right face) Symptom Intensity: 10/10 Quality: sharp Timing: constant Modifying Factors (Worsening): other (none) Modifying Factors (Relieving): other (none) Associated Symptoms: + fevers (subjective), + vomiting, No headache Note: Additional symptoms: lightheadedness, and gum swelling. He denies any problems swelling. Review of Systems See HPI for pertinent positives & negatives. A total of 10 systems reviewed and were otherwise negative. Past Medical & Surgical Medical Problems: (1) back surgery 05/13/2012 (2) Fusion of posterior lumbar spine (3) Heart disease (4) HTN (hypertension) (5) Hyperlipidemia (6) Hyperlipidemia Nec/Nos (7) Influenza (8) Low back pain (9) LUMBAR DISC DISPLACEMENT (10) SPINAL STENOSIS, LUMBAR REG, W/OUT NEUROGENIC CLAUDICATION (11) SPONDYLOLISTHESIS Surgical Problems: (1) History of cardiac catheterization Family History Cancer Heart disease Social History Smoking Status: Current Every Day Smoker Alcohol Use: occasionally Drug Use: none Marital Status: Housing Status: lives with family Occupation Status: employed Current/Historical Medications Scheduled Amlodipine (Norvasc), 5 MG PO DAILY Aspirin (Aspirin Ec), 81 MG PO DAILY Atorvastatin (Lipitor), 20 MG PO DAILY Clindamycin Hcl (Cleocin), 300 MG PO TID Metoprolol Succinate (Toprol Xl), 25 MG PO DAILY Scheduled PRN Oxycodone/Acetaminophen 5MG/325MG (Percocet 5MG/325MG), 1-2 TABS PO Q6 PRN for Pain Allergies Coded Allergies: Penicillins (Verified Allergy, Mild, PT STATES UNKNOWN REACTION, 07/18/17) RECEIVED ROCEPHIN X1 DOSE IN ED 07/2015 Physical Exam Vital Signs Date Time Temp Pulse Resp B/P (MAP) Pulse Ox O2 Delivery O2 Flow Rate FiO2 07/18/17 02:54 36.6 78 22 159/94 98 07/18/17 02:00 76 22 153/94 96 Room Air 07/18/17 01:40 07/18/17 01:30 76 15 160/97 97 Room Air 07/18/17 01:09 85 16 157/94 97 Room Air 07/18/17 01:00 79 19 152/99 97 Room Air 07/18/17 00:51 78 07/18/17 00:50 77 20 165/105 96 Room Air 07/17/17 23:50 36.6 97 18 189/115 98 Room Air Physical Exam Vital signs reviewed. Noted to be hypertensive. General: Well-appearing male, in no significant distress. HEENT: No scleral icterus, PERRLA, neck supple. Atraumatic. Tender to palpation of the right mandibular lateral incisor. No abscess or swelling. Cardiovascular: Regular rate and rhythm, no extra sounds. Pulmonary: Clear to auscultation bilaterally, normal work of breathing. Abdomen: Soft, nontender, nondistended, positive bowel sounds. Musculoskeletal: Atraumatic, no peripheral edema. Neurologic: Patient awake alert and oriented x 3, full strength in all 4 extremities. Cranial nerves 2 through 12 grossly intact. Skin: Warm, dry, no rash Medical Decision & Procedures ER Provider Diagnostic Interpretation: CT results per statrad and my review. CT HEAD: Comparison: CT head 10/04/2008. No ICH, mass effect, or edema. Gottlieb-white matter differentiation appears preserved. No evidence of skull fracture. Ethmoid air cell mucosal thickening. Clear mastoid air cells. Laboratory Results 07/18/17 00:35 Red Blood Count 4.73, Mean Corpuscular Volume 92.4, Mean Corpuscular Hemoglobin 32.3, Mean Corpuscular Hemoglobin Concent 35.0, Mean Platelet Volume 9.7, Neutrophils (%) (Auto) 64.3, Lymphocytes (%) (Auto) 26.7, Monocytes (%) (Auto) 5.7, Eosinophils (%) (Auto) 2.7, Basophils (%) (Auto) 0.3, Neutrophils # (Auto) 8.09, Lymphocytes # (Auto) 3.36, Monocytes # (Auto) 0.72, Eosinophils # (Auto) 0.34, Basophils # (Auto) 0.04 07/18/17 00:35 Test 07/18/17 00:35 White Blood Count 12.59 K/uL (4.8-10.8) Red Blood Count 4.73 M/uL (4.7-6.1) Hemoglobin 15.3 g/dL (14.0-18.0) Hematocrit 43.7 % (42-52) Mean Corpuscular Volume 92.4 fL (80-100) Mean Corpuscular Hemoglobin 32.3 pg (25-34) Mean Corpuscular Hemoglobin Concent 35.0 g/dl (32-36) Platelet Count 254 K/uL (130-400) Mean Platelet Volume 9.7 fL (7.4-10.4) Neutrophils (%) (Auto) 64.3 % Lymphocytes (%) (Auto) 26.7 % Monocytes (%) (Auto) 5.7 % Eosinophils (%) (Auto) 2.7 % Basophils (%) (Auto) 0.3 % Neutrophils # (Auto) 8.09 K/uL (1.4-6.5) Lymphocytes # (Auto) 3.36 K/uL (1.2-3.4) Monocytes # (Auto) 0.72 K/uL (0.11-0.59) Eosinophils # (Auto) 0.34 K/uL (0-0.5) Basophils # (Auto) 0.04 K/uL (0-0.2) RDW Standard Deviation 48.2 fL (36.4-46.3) RDW Coefficient of Variation 14.2 % (11.5-14.5) Immature Granulocyte % (Auto) 0.3 % Immature Granulocyte # (Auto) 0.04 K/uL (0.00-0.02) Anion Gap 4.0 mmol/L (3-11) Est Creatinine Clear Calc Drug Dose 130.0 ml/min Estimated GFR () 113.7 Estimated GFR (Non- 98.1 BUN/Creatinine Ratio 6.9 (10-20) Calcium Level 9.0 mg/dl (8.5-10.1) Total Bilirubin 0.3 mg/dl (0.2-1) Direct Bilirubin < 1.0 mg/dl (0-0.2) Aspartate Amino Transf (AST/SGOT) 20 U/L (15-37) Alanine Aminotransferase (ALT/SGPT) 36 U/L (12-78) Alkaline Phosphatase 148 U/L (45-117) Total Protein 8.2 gm/dl (6.4-8.2) Albumin 3.7 gm/dl (3.4-5.0) Chemistry Specimen Hemolysis Laboratory results per my review. Medications Administered Medications (Trade) Dose Ordered Sig/Sydni Route Start Time Stop Time Status Last Admin Dose Admin Hydralazine HCl (HydrALAZINE INJ) 10 mg NOW STAT IV. 07/18/17 00:14 07/18/17 00:17 DC 07/18/17 00:52 10 MG Acetaminophen (Tylenol Tab) 650 mg NOW STAT PO 07/18/17 00:14 07/18/17 00:17 DC 07/18/17 00:52 650 MG Ketorolac Tromethamine (Toradol Inj) 30 mg NOW STAT IV 07/18/17 00:42 07/18/17 00:43 DC 07/18/17 00:51 30 MG Amlodipine Besylate (Norvasc Tab) 5 mg NOW ONCE PO 07/18/17 01:15 07/18/17 01:16 DC 07/18/17 01:10 5 MG Clindamycin HCl (Cleocin Cap) 300 mg ONE ONCE PO 07/18/17 01:15 07/18/17 01:16 DC 07/18/17 01:10 300 MG Oxycodone/ Acetaminophen (Percocet 5/ 325MG Home Pack) 1 homepack UD ONCE PO 07/18/17 02:45 07/18/17 02:46 DC 07/18/17 02:51 1 HOMEPACK ECG Indication: other (hypertension) Rate (beats per minute): 75 Rhythm: normal sinus Findings: RBBB, no acute ischemic change, no ectopy Comparison ECG Date: April 02, 2017 Change: no significant change ED Course 0000: Past medical records reviewed. The patient was evaluated in room B3B. A complete history and physical examination was performed. 0014: Ordered Tylenol Tab 650 mg PO, Hydralazine 10 mg IV. 0042: Ordered Toradol Inj 30 mg IV. 0115: Ordered Cleocin Cap 300 mg PO, Norvasc Tab 5 mg PO. 0245: Upon reevaluation, the patient appeared to have improvement of his symptoms. I discussed findings with him. He verbalized agreement of the treatment plan. The patient was discharged home. Medical Decision Differential diagnosis includes but is not limited to: headache, dental pain, facial abscess, ICH, and intracranial mass. This pt was evaluated and appeared to be in some discomfort. Pt is noted to be markedly hypertensive. He was given IV hydralazine 10 mg, tylenol po. EKG reveals no acute change, old RBBB. CT head is negative for acute ICH. Pt was given po norvasc and IV toradol for continued pain. Pt is noted to have HNT on last 2 visits to the ED and currently takes metoprolol. Norvasc 5 mg po daily was added. He will f/u with his PCP this week. Pt was given po clindamycin and norco HP/Rx for dental pain. There does not appear to be an abscess on exam. Pt will f/u with his dentist LUCÍA. He will return to the ED for worsening of symptoms or any medical concerns. [place] Drug Monitoring Program Search Results: patient reviewed within database, no issues identified Medication Reconcilliation Current Medication List: was personally reviewed by me Blood Pressure Screening Patient's blood pressure: Elevated blood pressure Blood pressure disposition: Referred to PCP Impression Primary Impression: Pain, dental Additional Impression: HTN (hypertension) Scribe Attestation The scribe's documentation has been prepared under my direction and personally reviewed by me in its entirety. I confirm that the note above accurately reflects all work, treatment, procedures, and medical decision making performed by me. Departure Information Dispostion Home / Self-Care Prescriptions Amlodipine (Norvasc) 5 Mg Tab 5 MG PO DAILY, #14 TAB Prov: Antonietta Blancas M.D. 07/18/17 Oxycodone/Acetaminophen 5MG/325MG (PERCOCET 5MG/325MG) Tab 1-2 TABS PO Q6 Y for Pain, #20 TAB Prov: Antonietta Blancas M.D. 07/18/17 Clindamycin Hcl (CLEOCIN) 300 Mg Cap 300 MG PO TID for 10 Days, #30 CAP Prov: Antonietta Blancas M.D. 07/18/17 Referrals No Doctor, Assigned (PCP) Forms HOME CARE DOCUMENTATION FORM, IMPORTANT VISIT INFORMATION Patient Instructions My [facility] Additional Instructions Diagnosis: Dental pain, hypertension Continue medications as prescribed. Add in norvasc 5 mg daily. Have your doctor recheck blood pressure in 1 week. Clindamycin 300 mg 3 times daily for 7 days. Percocoet 1-2 tabs every 6 hours as needed for pain. Do not drive or take tylenol with this medication. Follow-up with your dentist as soon as possible. Return to the ER for worsening of symptoms or any medical concerns. Problem Qualifiers
[2017-07-18] MEDS ORDERED: PERCOCET HOME PACK PO ONE (02:45)
[2017-07-18 02:54] VITALS: BP 159/94; PULSE 78; TEMP 36.6; O2SAT 98
--- NOTE | 2017-07-18 07:04 | DIAGNOSTIC IMAGING REPORT ---
HEAD CT NONCONTRAST CT DOSE: 614.27 mGy.cm HISTORY: R facial pain, headache, HTN TECHNIQUE: Multiaxial CT images of the head were performed without the use of intravenous contrast. Automated exposure control was utilized for this study. A dose lowering technique was utilized adhering to the principles of ALARA. Comparison: None. Findings: The paranasal sinuses and mastoid air cells are clear. The calvarium and skull base are intact. The ventricles and sulci are within normal limits. There is no mass, hematoma, midline shift, or acute infarct. Impression: No acute intracranial abnormality. Electronically signed by: Eron Holland M.D. 07/18/2017 7:03 AM Dictated Date/Time: 07/18/2017 7:01 AM
== END 2017-07-18 02:55 | disposition home or self-care (01) ==
LOC: C.EDB 23:48
DX: K08.89 Other specified disorders of teeth and supporting structures (principal); I10 Essential (primary) hypertension; Z98.1 Arthrodesis status; E78.5 Hyperlipidemia, unspecified; Z80.9 Family history of malignant neoplasm, unspecified; F17.210 Nicotine dependence, cigarettes, uncomplicated; Z79.82 Long term (current) use of aspirin; Z79.899 Other long term (current) drug therapy

== ENCOUNTER → 2017-07-20 | Outpatient (CLI) | payer BC ==
[~2017-07-20] MED LIST changes: +AMLO-110 PO; +ASPI81TA28 PO; +ATOR-22 PO; +CLIN300C2 PO; -HYDR-4330 PO; +METO25TA3 PO; +OXYC-57 PO
== END | disposition home or self-care (01) ==
LOC: C.RDSM 12:13
PROVIDERS: ATTEND Physical Medicine & Rehabilitation Sports Medicine
DX: Z98.890 Other specified postprocedural states (principal)

== ENCOUNTER 2018-11-21 23:06 | Observation (INO) ==
[2018-11-22] MEDS ORDERED: NITROGLYCERIN 2% OINTMENT 30GM TUBE EXT ONE (00:04)
[2018-11-22] MEDS ORDERED: ONDANSETRON INJ 2 MG/ML 2 ML VIAL IV STA (00:04)
[2018-11-22] MEDS ORDERED: ASPIRIN CHEW 324 MG PO STA (00:04)
[2018-11-22] MEDS ORDERED: MoRPHine SULFATE 10 MG/ML CARP/VIAL IV STA (00:04)
[2018-11-22 00:11] LABS: Appearance Urine Clear (Clear); Bilirubin Urine Negative (Negative); Color Urine Yellow; Glucose Urine UA Negative (Negative); Ketones Urine Negative (Negative); Leukocyte Esterase Urine Negative (Negative); Nitrite Urine Negative (Negative); Protein Urine Negative (Negative); Urobilinogen Urine Negative (Negative); pH Urine 5.5 (4.5-7.5)
[2018-11-22] MEDS ORDERED: SODIUM CHLORIDE 0.9% 1000ML 1,000 ML IV SCH (00:15)
[2018-11-22 00:27] LABS: Basophils # (auto) 0.03 K/uL (0-0.2); Basophils % (auto) 0.2 %; Eosinophils # (auto) 0.18 K/uL (0-0.5); Eosinophils % (auto) 1.4 %; Hematocrit (blood only) 45.6 % (42-52); Hemoglobin 15.2 g/dL (14.0-18.0); Immature Granulocytes # (auto) 0.03 K/uL (0.00-0.02); Immature Granulocytes % (auto) 0.2 %; Lymphocytes # (auto) 3.31 K/uL (1.2-3.4); Lymphocytes % (auto) 26.2 %; Mean Corpuscular Hgb Conc 33.3 g/dL (32-36); Mean Corpuscular Volume 92.1 fL (80-100); Mean Platelet Volume 10.5 fL (7.4-10.4); Monocytes % (auto) 6.3 %; Neutrophils # (auto) 8.29 K/uL (1.4-6.5); Neutrophils % (auto) 65.7 %; Platelet Count 234 K/uL (130-400); RDW Coefficient of Variation 14.1 % (11.5-14.5); RDW Standard Deviation 47.5 fL (36.4-46.3); Red Blood Count 4.95 M/uL (4.7-6.1); White Blood Count 12.64 K/uL (4.8-10.8)
[2018-11-22 00:28] LABS: Bacteria Urine Negative (Negative); RBC Urine 0-4 /hpf (0-4); WBC Urine 0-5 /hpf (0-5)
[2018-11-22 00:36] LABS: INR 1.1 (0.9-1.1); Partial Thromboplastin Ratio 1.2; Partial Thromboplastin Time 31.4 Seconds (21.0-31.0)
[2018-11-22 00:47] LABS: Alanine Aminotransferase 38 U/L (12-78); Albumin Level 3.7 gm/dl (3.4-5.0); BUN Creatinine Ratio 12.2 (10-20); Blood Urea Nitrogen 11 mg/dl (7-18); Calcium 8.9 mg/dl (8.5-10.1); Carbon Dioxide 26 mmol/L (21-32); Chloride 107 mmol/L (98-107); Est GFR (African American) 115.1; Est GFR (Non-African American) 99.3; Glucose 82 mg/dl (70-99); Magnesium 2.2 mg/dl (1.8-2.4); Potassium 3.8 mmol/L (3.5-5.1); Sodium 139 mmol/L (136-145)
[2018-11-22 00:58] LABS: Albumin Globulin Ratio 0.8 (0.9-2); Alkaline Phosphatase 140 U/L (45-117); Aspartate Aminotransferase 17 U/L (15-37); Bilirubin,Total 0.3 mg/dl (0.2-1); Globulin 4.7 gm/dl (2.5-4.0); Total Protein 8.4 gm/dl (6.4-8.2); Troponin I < 0.015 ng/ml (0-0.045)
[2018-11-22] MEDS ORDERED: HYDROmorphone INJ 1 MG/ML SYRINGE IV STA (02:03)
[2018-11-22] MEDS ORDERED: METOPROLOL SUCC 50MG EXT REL TAB PO SCH (03:50)
--- NOTE | 2018-11-22 05:05 | History & Physical Report ---
Date of Service November 22, 2018 Assessment & Plan (1) Headache: Differentials include : Giant cell arteritis, migraine, tumor Chest pain possibly from elevated BP, anxiety hx nonocclusive CAD hyperlipidemia on statin therapy Prediabetes as per records, hemoglobin A1c of 5.6 from 2017 ongoing tobacco abuse OBS Medical telemetry for chest pain Solu-Medrol 1 dose for presumptive temporal arteritis MRI brain RE headache Neurology consult RE unilateral headache Facilitate home BP meds TTE RE transient chest pain Further management pending workup results N.p.o. sips for now RE possible procedure Update hemoglobin A1c Nicotine patch as needed DVT prophylaxis. Lovenox subcu Full code Present on Admission?: Yes History of Present Illness Chief Complaint: Left-sided headache Primary Care Provider: Hang Dickson History obtained from patient and records. Medical history significant for CAD, hypertension, hyperlipidemia, ongoing tobacco abuse, prediabetes, arthritis. Recent confinement March 2017 under Orthopedics service for foot surgery. Last night patient had abrupt onset severe stabbing/throbbing headache from the left forehead going to the back of his head associated with dizziness described as lightheadedness, nausea, emesis. Transient blurred vision bilateral. No prior episodes as per patient. Patient later experienced left-sided chest pain going to the jaw without shortness of breath and diaphoresis. Some relief of chest pain with aspirin intake at home. No relief of headache. Medical History as above Patient completed doxycycline for presumptive Lyme April 2018 Surgical History : Back surgeries, wrist surgery, foot surgery Family History : Heart disease Personal/Social history : Half pack daily, no EtOH intake, disabled Allergies Allergy/AdvReac Type Severity Reaction Status Date / Time Penicillins Allergy Mild PT STATES Verified 11/22/18 00:48 UNKNOWN REACTION Home Medications Home Medications Medication Instructions Recorded Confirmed Type aspirin 81 mg PO DAILY 07/27/18 11/22/18 History atorvastatin 40 mg PO DAILY 11/22/18 11/22/18 History metoprolol succinate 25 mg PO DAILY 11/22/18 11/22/18 History Past Med/Surg History Medical History Fusion of posterior lumbar spine (Resolved 06/05/13) Heart disease (Chronic) Hypertension (Acute 10/19/14) Hyperlipidemia (Chronic) Social History Current Living Situation: Spouse Feels Safe at Home: Yes Safety Concerns: Feels Safe At This Time Smoking Status: Light tobacco smoker Hx Substance Use: No Beliefs That Will Affect Care: None Preferred Language: Upper Sorbian Communication Ability: Effective Vegetable Farmer Required: No Review of Systems As per HPI, all 10 systems reviewed, all other ROS negative Physical Exam 2 Vital Signs (Past 24 Hours): Last Vital Signs Temp 36.6 C 11/21/18 23:08 Pulse 75 11/22/18 04:30 Resp 15 11/22/18 04:30 BP 145/84 H 11/22/18 04:30 Pulse Ox 96 11/22/18 04:30 Physical Exam: GENERAL: uncomfortable, obese, no respiratory distress SKIN: Normal color, warm HEENT: [place] palpebral conjunctivae, no ptosis, dry buccal mucosa NECK : Supple, short neck, no tenderness CHEST : CTA, no tenderness HEART : RRR, no obvious murmurs ABDOMEN: Some distention, nontender EXTREMITIES : No LE swelling/tenderness, no other conspicuous deformities noted NEUROLOGIC : Coherent, no facial asymmetry, no other gross focality Results & Data Laboratory Results Laboratory Results WBC 12.64 K/uL (4.8-10.8) H 11/21/18 23:24 RBC 4.95 M/uL (4.7-6.1) 11/21/18 23:24 Hgb 15.2 g/dL (14.0-18.0) 11/21/18 23:24 Hct 45.6 % (42-52) 11/21/18 23:24 MCV 92.1 fL (80-100) 11/21/18 23:24 MCH 30.7 pg (25-34) 11/21/18 23:24 MCHC 33.3 g/dL (32-36) 11/21/18 23:24 RDW Std Deviation 47.5 fL (36.4-46.3) H 11/21/18 23:24 RDW Coeff of [place] 14.1 % (11.5-14.5) 11/21/18 23:24 Plt Count 234 K/uL (130-400) 11/21/18 23:24 MPV 10.5 fL (7.4-10.4) H 11/21/18 23:24 Immature Gran % (Auto) 0.2 % 11/21/18 23:24 Neut % (Auto) 65.7 % 11/21/18 23:24 Lymph % (Auto) 26.2 % 11/21/18 23:24 [place] % (Auto) 6.3 % 11/21/18 23:24 Eos % (Auto) 1.4 % 11/21/18 23:24 Baso % (Auto) 0.2 % 11/21/18 23:24 Immature Gran # (Auto) 0.03 K/uL (0.00-0.02) H 11/21/18 23:24 Neut # (Auto) 8.29 K/uL (1.4-6.5) H 11/21/18 23:24 Lymph # (Auto) 3.31 K/uL (1.2-3.4) 11/21/18 23:24 [place] # (Auto) 0.80 K/uL (0.11-0.59) H 11/21/18 23:24 Eos # (Auto) 0.18 K/uL (0-0.5) 11/21/18 23:24 Baso # (Auto) 0.03 K/uL (0-0.2) 11/21/18 23:24 PT 11.0 Seconds (9.0-12.0) 11/21/18 23:24 INR 1.1 (0.9-1.1) 11/21/18 23:24 APTT 31.4 Seconds (21.0-31.0) H 11/21/18 23:24 PTT Ratio 1.2 11/21/18 23:24 Sodium 139 mmol/L (136-145) 11/21/18 23:24 Potassium 3.8 mmol/L (3.5-5.1) 11/21/18 23:24 Chloride 107 mmol/L (98-107) 11/21/18 23:24 Carbon Dioxide 26 mmol/L (21-32) 11/21/18 23:24 Anion Gap 6.0 (3-11) 11/21/18 23:24 BUN 11 mg/dl (7-18) 11/21/18 23:24 Creatinine 0.91 mg/dl (0.6-1.4) 11/21/18 23:24 Est Cr Clr Drug Dosing 136.0 ml/min 11/21/18 23:24 Est GFR ( Amer) 115.1 11/21/18 23:24 Est GFR (Non-Af Amer) 99.3 11/21/18 23:24 BUN/Creatinine Ratio 12.2 (10-20) 11/21/18 23:24 Glucose 82 mg/dl (70-99) 11/21/18 23:24 Calcium 8.9 mg/dl (8.5-10.1) 11/21/18 23:24 Magnesium 2.2 mg/dl (1.8-2.4) 11/21/18 23:24 Total Bilirubin 0.3 mg/dl (0.2-1) 11/21/18 23:24 AST 17 U/L (15-37) 11/21/18 23:24 ALT 38 U/L (12-78) 11/21/18 23:24 Alkaline Phosphatase 140 U/L (45-117) H 11/21/18 23:24 Troponin I < 0.015 ng/ml (0-0.045) 11/21/18 23:24 Total Protein 8.4 gm/dl (6.4-8.2) H 11/21/18 23:24 Albumin 3.7 gm/dl (3.4-5.0) 11/21/18 23:24 Globulin 4.7 gm/dl (2.5-4.0) H 11/21/18 23:24 Albumin/Globulin Ratio 0.8 (0.9-2) L 11/21/18 23:24 Lipase 125 U/L (73-393) 11/21/18 23:24 TSH 2.740 uIu/ml (0.300-4.500) 11/21/18 23:24 Urine Color Yellow 11/22/18 00:00 Urine Appearance Clear (Clear) 11/22/18 00:00 Urine pH 5.5 (4.5-7.5) 11/22/18 00:00 Ur Specific [place] 1.020 (1.000-1.030) 11/22/18 00:00 Urine Protein Negative (Negative) 11/22/18 00:00 Urine Glucose (UA) Negative (Negative) 11/22/18 00:00 Urine Ketones Negative (Negative) 11/22/18 00:00 Urine Blood Trace (Negative) H 11/22/18 00:00 Urine Nitrite Negative (Negative) 11/22/18 00:00 Urine Bilirubin Negative (Negative) 11/22/18 00:00 Urine Urobilinogen Negative (Negative) 11/22/18 00:00 Ur Leukocyte Esterase Negative (Negative) 11/22/18 00:00 Urine RBC 0-4 /hpf (0-4) 11/22/18 00:00 Urine WBC 0-5 /hpf (0-5) 11/22/18 00:00 Ur Epithelial Cells 0-5 /lpf (0-5) 11/22/18 00:00 Urine Bacteria Negative (Negative) 11/22/18 00:[address] head no acute pathology EKG as per my interpretation rate 90, NSR, LAD, LAFB, RBBB, LAE, T wave inversion inferior leads _ (1) Headache Headache chronicity pattern: acute headache Headache type: unspecified Intractability: not intractable Qualified Code(s): R51 - Headache
[2018-11-22] MEDS ORDERED: methylPREDNISolone 60 MG in SYRINGE 0 ML IV STA (05:08)
[2018-11-22] MEDS ORDERED: methylPREDNISolone 40 MG in SYRINGE 0 ML IV STA (05:08)
[2018-11-22 05:36] LABS: Basophils # (auto) 0.03 K/uL (0-0.2); Basophils % (auto) 0.3 %; Eosinophils # (auto) 0.26 K/uL (0-0.5); Eosinophils % (auto) 2.3 %; Hematocrit (blood only) 43.6 % (42-52); Hemoglobin 14.5 g/dL (14.0-18.0); Immature Granulocytes # (auto) 0.03 K/uL (0.00-0.02); Immature Granulocytes % (auto) 0.3 %; Lymphocytes # (auto) 3.68 K/uL (1.2-3.4); Lymphocytes % (auto) 33.1 %; Mean Corpuscular Hgb Conc 33.3 g/dL (32-36); Mean Corpuscular Volume 92.6 fL (80-100); Mean Platelet Volume 10.2 fL (7.4-10.4); Monocytes # (auto) 0.56 K/uL (0.11-0.59); Neutrophils # (auto) 6.56 K/uL (1.4-6.5); Platelet Count 207 K/uL (130-400); RDW Coefficient of Variation 14.1 % (11.5-14.5); RDW Standard Deviation 47.9 fL (36.4-46.3); Red Blood Count 4.71 M/uL (4.7-6.1); White Blood Count 11.12 K/uL (4.8-10.8)
[2018-11-22 05:45] LABS: Partial Thromboplastin Ratio 1.2; Partial Thromboplastin Time 30.8 Seconds (21.0-31.0)
[2018-11-22 05:51] LABS: Alanine Aminotransferase 36 U/L (12-78); Albumin Level 3.4 gm/dl (3.4-5.0); Aspartate Aminotransferase 16 U/L (15-37); BUN Creatinine Ratio 10.7 (10-20); Blood Urea Nitrogen 10 mg/dl (7-18); Calcium 8.4 mg/dl (8.5-10.1); Carbon Dioxide 27 mmol/L (21-32); Chloride 108 mmol/L (98-107); Creatinine Clr Calc Pharmacy 133.1 ml/min; Est GFR (African American) 112.1; Est GFR (Non-African American) 96.7; Glucose 112 mg/dl (70-99); Potassium 4.2 mmol/L (3.5-5.1); Sodium 138 mmol/L (136-145)
[2018-11-22 05:55] LABS: Albumin Globulin Ratio 0.8 (0.9-2); Alkaline Phosphatase 130 U/L (45-117); Bilirubin,Total 0.4 mg/dl (0.2-1); C Reactive Protein 0.84 mg/dl (0-0.29); Globulin 4.4 gm/dl (2.5-4.0); Total Protein 7.8 gm/dl (6.4-8.2); Troponin I < 0.015 ng/ml (0-0.045)
--- NOTE | 2018-11-22 05:59 | Emergency Department Note ---
History of Present Illness General Chief complaint: Headache Stated complaint: SEVERE HEADACHE, NAUSEA, DIZZY Time Seen by Provider: 11/21/18 23:55 History of Present Illness Maximum Pain Intensity: 10 This is a 48-year-old male presenting to the emergency department with complaint of severe left-sided head pain that began approximately 5 hours prior to arrival. The patient states the pain is radiating into his left side jaw, left side neck and left shoulder. His symptoms started spontaneously and he rates the discomfort 10/10. He does not recall having a headache with the severity in the past. He is having some nausea and lightheadedness. He does not report injury or trauma to explain his symptoms. No recent fevers or chills. He does not have distinct chest pain, chest tightness, or shortness of breath. No abdominal pain. The patient does have a history of hypertension and cardiac catheterization in the past. He states that he did take 2 pills of 81 mg aspirin when his symptoms began tonight. These have not significantly improved his symptoms. Home Medications Home Medications Medication Instructions Recorded Confirmed Type aspirin 81 mg PO DAILY 07/27/18 11/22/18 History atorvastatin 40 mg PO DAILY 11/22/18 11/22/18 History metoprolol succinate 25 mg PO DAILY 11/22/18 11/22/18 History Allergies Allergy/AdvReac Type Severity Reaction Status Date / Time Penicillins Allergy Mild PT STATES Verified 11/22/18 00:48 UNKNOWN REACTION Past Med/Surg History Medical History Fusion of posterior lumbar spine (Resolved 06/05/13) Heart disease (Chronic) Hypertension (Acute 10/19/14) Hyperlipidemia (Chronic) Social History Current Living Situation: Spouse Feels Safe at Home: Yes Safety Concerns: Feels Safe At This Time Smoking Status: Light tobacco smoker Hx Substance Use: No Beliefs That Will Affect Care: None Preferred Language: Latvian Communication Ability: Effective Adobe Architect Required: No Review of Systems A total of 10 systems reviewed and were otherwise negative Physical Exam Vital Signs Vital Signs - 24 hr 11/21/18 23:08 11/22/18 00:27 11/22/18 00:47 Temperature 36.6 C Temperature Source Oral Sepsis Recent Fever Within 48 Hours No Sepsis Action Taken by Nursing No Action Required Pulse Rate 98 H Pulse Rate [Apical] 96 H 82 Respiratory Rate 18 12 18 Respiratory Effort / Characteristics Non-Labored Non-Labored Non-Labored Respiratory Depth Normal Normal Normal Respiratory Pattern Regular Regular Blood Pressure 163/116 H Blood Pressure [Left Arm] 144/104 H 149/103 H Blood Pressure Mean 131 Blood Pressure Mean [Left Arm] 117 118 Blood Pressure Position [Left Arm] Sitting Sitting Pulse Oximetry 94 96 97 Oxygen Delivery Method Room Air Room Air Room Air 11/22/18 01:30 11/22/18 02:00 11/22/18 02:30 Temperature Temperature Source Sepsis Recent Fever Within 48 Hours Sepsis Action Taken by Nursing Pulse Rate Pulse Rate [Apical] 85 80 74 Respiratory Rate 12 20 20 Respiratory Effort / Characteristics Non-Labored Non-Labored Non-Labored Respiratory Depth Normal Normal Normal Respiratory Pattern Regular Regular Regular Blood Pressure Blood Pressure [Left Arm] 140/92 136/92 127/88 Blood Pressure Mean Blood Pressure Mean [Left Arm] 108 106 101 Blood Pressure Position [Left Arm] Sitting Sitting Pulse Oximetry 95 95 95 Oxygen Delivery Method Room Air Room Air Room Air 11/22/18 03:00 11/22/18 04:00 11/22/18 04:30 Temperature Temperature Source Sepsis Recent Fever Within 48 Hours Sepsis Action Taken by Nursing Pulse Rate Pulse Rate [Apical] 74 87 75 Respiratory Rate 16 17 15 Respiratory Effort / Characteristics Non-Labored Non-Labored Non-Labored Respiratory Depth Normal Normal Normal Respiratory Pattern Regular Regular Regular Blood Pressure Blood Pressure [Left Arm] 139/81 150/91 H 145/84 H Blood Pressure Mean Blood Pressure Mean [Left Arm] 100 110 104 Blood Pressure Position [Left Arm] Sitting Sitting Pulse Oximetry 96 97 96 Oxygen Delivery Method Room Air Room Air Room Air 11/22/18 05:45 Temperature 36.3 C L Temperature Source Oral Sepsis Recent Fever Within 48 Hours Sepsis Action Taken by Nursing Pulse Rate Pulse Rate [Apical] 85 Respiratory Rate 18 Respiratory Effort / Characteristics Non-Labored Spontaneous Respiratory Depth Normal Respiratory Pattern Blood Pressure Blood Pressure [Left Arm] 140/83 Blood Pressure Mean Blood Pressure Mean [Left Arm] 102 Blood Pressure Position [Left Arm] Pulse Oximetry 95 Oxygen Delivery Method Room Air VITALS: Vitals are noted on the nurse's note and reviewed by myself. Vital signs with elevated BP. GENERAL: Well-developed, well-nourished, white male who appears moderately uncomfortable on examination. He is overall cooperative. HEAD: Normocephalic atraumatic. EARS: External ear normal. External auditory canals clear, tympanic membranes pearly magallanes without erythema or effusion bilaterally. EYES: Pupils equal round and reactive to light and accommodation. Conjunctivae without injection, sclerae without icterus. Extraocular movements intact. NOSE: Patent, turbinates without inflammation or discharge. MOUTH: Mucous membranes moist. Tonsils are not enlarged. Pharynx without erythema, blood, or exudate. Uvula midline. Airway patent. NECK: Supple without nuchal rigidity. No lymphadenopathy. No thyromegaly. Cervical spine is nontender. HEART: Regular rate and rhythm without murmurs gallops or rubs. LUNGS: Clear to auscultation bilaterally without wheezes, rales or rhonchi. No retractions or accessory muscle use. ABDOMEN: Positive normal bowel sounds x 4. Soft, nontender, without masses or organomegaly. No guarding or rebound tenderness. MUSCULOSKELETAL: No muscle atrophy, erythema, or edema noted. Full range of motion in all extremities. NEURO: Patient was alert and oriented to person place and time. CN II through XII grossly intact. SKIN: The skin was without rashes, erythema, edema, or bruising. Capillary refill less than 2 seconds. Course Administered Medications Metoprolol Succinate (Toprol Xl) 25 mg PO QAM [facility] Stop: 12/22/18 03:49 Last Admin: 11/22/18 04:29 Dose: 25 mg Discontinued Medications Aspirin (Aspirin) 162 mg PO NOW STA Stop: 11/22/18 00:05 Last Admin: 11/22/18 00:21 Dose: 162 mg Hydromorphone HCl (Dilaudid) 1 mg IV NOW STA Stop: 11/22/18 02:04 Last Admin: 11/22/18 04:35 Dose: Not Given Sodium Chloride (Nss 1000ml) 1,000 mls @ 999 mls/hr IV .Q1H1M TAMICA Stop: 11/22/18 01:15 Last Infusion: 11/22/18 01:13 Dose: 0 mls/hr Admin: 11/22/18 00:27 Dose: 999 mls/hr Methylprednisolone 40 mg/ (Syringe) 0.64 mls @ 1.5 mls/min IV NOW STA Stop: 11/22/18 05:09 Last Admin: 11/22/18 05:34 Dose: Not Given Methylprednisolone 60 mg/ (Syringe) 0.96 mls @ 1.5 mls/min IV NOW STA Stop: 11/22/18 05:09 Last Admin: 11/22/18 05:38 Dose: 1.5 mls/min Morphine Sulfate (Morphine Sulfate) 8 mg IV NOW STA Stop: 11/22/18 00:05 Last Admin: 11/22/18 00:21 Dose: 8 mg Nitroglycerin (Nitro-Bid 2%) 1 inch EXT NOW ONE Stop: 11/22/18 00:05 Last Admin: 11/22/18 00:21 Dose: 1 inch Ondansetron HCl (Zofran) 4 mg IV NOW STA Stop: 11/22/18 00:05 Last Admin: 11/22/18 00:21 Dose: 4 mg Medical Decision Making Differential Diagnosis Differential diagnosis includes, but is not limited to: Myocardial infarction, migraine, trigeminal neuralgia, temporal arteritis, dysrhythmia, pericarditis, pneumothorax, aortic aneurysm/dissection, DVT/PE, anxiety, GERD, PUD, electrolyte imbalance, thyroid disorder, pneumonia, bronchitis, pancreatitis, and others Laboratory Data Result diagrams: 11/22/18 05:24 11/22/18 05:24 Lab Results 11/21/18 11/21/18 11/21/18 Range/Units 23:24 23:24 23:24 WBC 12.64 H (4.8-10.8) K/uL RBC 4.95 (4.7-6.1) M/uL Hgb 15.2 (14.0-18.0) g/dL Hct 45.6 (42-52) % MCV 92.1 (80-100) fL MCH 30.7 (25-34) pg MCHC 33.3 (32-36) g/dL RDW Std Deviation 47.5 H (36.4-46.3) fL RDW Coeff of [place] 14.1 (11.5-14.5) % Plt Count 234 (130-400) K/uL MPV 10.5 H (7.4-10.4) fL Immature Gran % (Auto) 0.2 % Neut % (Auto) 65.7 % Lymph % (Auto) 26.2 % [place] % (Auto) 6.3 % Eos % (Auto) 1.4 % Baso % (Auto) 0.2 % Immature Gran # (Auto) 0.03 H (0.00-0.02) K/uL Neut # (Auto) 8.29 H (1.4-6.5) K/uL Lymph # (Auto) 3.31 (1.2-3.4) K/uL [place] # (Auto) 0.80 H (0.11-0.59) K/uL Eos # (Auto) 0.18 (0-0.5) K/uL Baso # (Auto) 0.03 (0-0.2) K/uL ESR (0-14) mm/hr PT 11.0 (9.0-12.0) Seconds INR 1.1 (0.9-1.1) APTT 31.4 H (21.0-31.0) Seconds PTT Ratio 1.2 Sodium 139 (136-145) mmol/L Potassium 3.8 (3.5-5.1) mmol/L Chloride 107 (98-107) mmol/L Carbon Dioxide 26 (21-32) mmol/L Anion Gap 6.0 (3-11) BUN 11 (7-18) mg/dl Creatinine 0.91 (0.6-1.4) mg/dl Est Cr Clr Drug Dosing 136.0 ml/min Est GFR ( Amer) 115.1 Est GFR (Non-Af Amer) 99.3 BUN/Creatinine Ratio 12.2 (10-20) Glucose 82 (70-99) mg/dl Calcium 8.9 (8.5-10.1) mg/dl Magnesium 2.2 (1.8-2.4) mg/dl Total Bilirubin 0.3 (0.2-1) mg/dl AST 17 (15-37) U/L ALT 38 (12-78) U/L Alkaline Phosphatase 140 H (45-117) U/L Troponin I < 0.015 (0-0.045) ng/ml C-Reactive Protein (0-0.29) mg/dl Total Protein 8.4 H (6.4-8.2) gm/dl Albumin 3.7 (3.4-5.0) gm/dl Globulin 4.7 H (2.5-4.0) gm/dl Albumin/Globulin Ratio 0.8 L (0.9-2) Lipase 125 (73-393) U/L TSH 2.740 (0.300-4.500) uIu/ml Urine Color Urine Appearance (Clear) Urine pH (4.5-7.5) Ur Specific [place] (1.000-1.030) Urine Protein (Negative) Urine Glucose (UA) (Negative) Urine Ketones (Negative) Urine Blood (Negative) Urine Nitrite (Negative) Urine Bilirubin (Negative) Urine Urobilinogen (Negative) Ur Leukocyte Esterase (Negative) Urine RBC (0-4) /hpf Urine WBC (0-5) /hpf Ur Epithelial Cells (0-5) /lpf Urine Bacteria (Negative) 11/22/18 11/22/18 11/22/18 Range/Units 00:00 05:24 05:24 WBC 11.12 H (4.8-10.8) K/uL RBC 4.71 (4.7-6.1) M/uL Hgb 14.5 (14.0-18.0) g/dL Hct 43.6 (42-52) % MCV 92.6 (80-100) fL MCH 30.8 (25-34) pg MCHC 33.3 (32-36) g/dL RDW Std Deviation 47.9 H (36.4-46.3) fL RDW Coeff of [place] 14.1 (11.5-14.5) % Plt Count 207 (130-400) K/uL MPV 10.2 (7.4-10.4) fL Immature Gran % (Auto) 0.3 % Neut % (Auto) 59.0 % Lymph % (Auto) 33.1 % [place] % (Auto) 5.0 % Eos % (Auto) 2.3 % Baso % (Auto) 0.3 % Immature Gran # (Auto) 0.03 H (0.00-0.02) K/uL Neut # (Auto) 6.56 H (1.4-6.5) K/uL Lymph # (Auto) 3.68 H (1.2-3.4) K/uL [place] # (Auto) 0.56 (0.11-0.59) K/uL Eos # (Auto) 0.26 (0-0.5) K/uL Baso # (Auto) 0.03 (0-0.2) K/uL ESR 19 H (0-14) mm/hr PT (9.0-12.0) Seconds INR (0.9-1.1) APTT (21.0-31.0) Seconds PTT Ratio Sodium (136-145) mmol/L Potassium (3.5-5.1) mmol/L Chloride (98-107) mmol/L Carbon Dioxide (21-32) mmol/L Anion Gap (3-11) BUN (7-18) mg/dl Creatinine (0.6-1.4) mg/dl Est Cr Clr Drug Dosing ml/min Est GFR ( Amer) Est GFR (Non-Af Amer) BUN/Creatinine Ratio (10-20) Glucose (70-99) mg/dl Calcium (8.5-10.1) mg/dl Magnesium (1.8-2.4) mg/dl Total Bilirubin (0.2-1) mg/dl AST (15-37) U/L ALT (12-78) U/L Alkaline Phosphatase (45-117) U/L Troponin I (0-0.045) ng/ml C-Reactive Protein (0-0.29) mg/dl Total Protein (6.4-8.2) gm/dl Albumin (3.4-5.0) gm/dl Globulin (2.5-4.0) gm/dl Albumin/Globulin Ratio (0.9-2) Lipase (73-393) U/L TSH (0.300-4.500) uIu/ml Urine Color Yellow Urine Appearance Clear (Clear) Urine pH 5.5 (4.5-7.5) Ur Specific [place] 1.020 (1.000-1.030) Urine Protein Negative (Negative) Urine Glucose (UA) Negative (Negative) Urine Ketones Negative (Negative) Urine Blood Trace H (Negative) Urine Nitrite Negative (Negative) Urine Bilirubin Negative (Negative) Urine Urobilinogen Negative (Negative) Ur Leukocyte Esterase Negative (Negative) Urine RBC 0-4 (0-4) /hpf Urine WBC 0-5 (0-5) /hpf Ur Epithelial Cells 0-5 (0-5) /lpf Urine Bacteria Negative (Negative) 11/22/18 11/22/18 Range/Units 05:24 05:24 WBC (4.8-10.8) K/uL RBC (4.7-6.1) M/uL Hgb (14.0-18.0) g/dL Hct (42-52) % MCV (80-100) fL MCH (25-34) pg MCHC (32-36) g/dL RDW Std Deviation (36.4-46.3) fL RDW Coeff of [place] (11.5-14.5) % Plt Count (130-400) K/uL MPV (7.4-10.4) fL Immature Gran % (Auto) % Neut % (Auto) % Lymph % (Auto) % [place] % (Auto) % Eos % (Auto) % Baso % (Auto) % Immature Gran # (Auto) (0.00-0.02) K/uL Neut # (Auto) (1.4-6.5) K/uL Lymph # (Auto) (1.2-3.4) K/uL [place] # (Auto) (0.11-0.59) K/uL Eos # (Auto) (0-0.5) K/uL Baso # (Auto) (0-0.2) K/uL ESR (0-14) mm/hr PT (9.0-12.0) Seconds INR (0.9-1.1) APTT 30.8 (21.0-31.0) Seconds PTT Ratio 1.2 Sodium 138 (136-145) mmol/L Potassium 4.2 (3.5-5.1) mmol/L Chloride 108 H (98-107) mmol/L Carbon Dioxide 27 (21-32) mmol/L Anion Gap 3.0 (3-11) BUN 10 (7-18) mg/dl Creatinine 0.93 (0.6-1.4) mg/dl Est Cr Clr Drug Dosing 133.1 ml/min Est GFR ( Amer) 112.1 Est GFR (Non-Af Amer) 96.7 BUN/Creatinine Ratio 10.7 (10-20) Glucose 112 H (70-99) mg/dl Calcium 8.4 L (8.5-10.1) mg/dl Magnesium (1.8-2.4) mg/dl Total Bilirubin 0.4 (0.2-1) mg/dl AST 16 (15-37) U/L ALT 36 (12-78) U/L Alkaline Phosphatase 130 H (45-117) U/L Troponin I < 0.015 (0-0.045) ng/ml C-Reactive Protein 0.84 H (0-0.29) mg/dl Total Protein 7.8 (6.4-8.2) gm/dl Albumin 3.4 (3.4-5.0) gm/dl Globulin 4.4 H (2.5-4.0) gm/dl Albumin/Globulin Ratio 0.8 L (0.9-2) Lipase (73-393) U/L TSH (0.300-4.500) uIu/ml Urine Color Urine Appearance (Clear) Urine pH (4.5-7.5) Ur Specific [place] (1.000-1.030) Urine Protein (Negative) Urine Glucose (UA) (Negative) Urine Ketones (Negative) Urine Blood (Negative) Urine Nitrite (Negative) Urine Bilirubin (Negative) Urine Urobilinogen (Negative) Ur Leukocyte Esterase (Negative) Urine RBC (0-4) /hpf Urine WBC (0-5) /hpf Ur Epithelial Cells (0-5) /lpf Urine Bacteria (Negative) Imaging Data Radiologist's Impression: Preliminary Findings Only See Final Report For Complete Findings CT HEAD: Minimal motion artifact causes some image degradation. No intracranial hemorrhage, midline shift or mass effect. No evidence for cortical infarct or significant interval change from 07/18/2017. The mastoid air cells are well-aerated no significant overlying soft tissue abnormality is suggested. Minimal mucosal thickening of several ethmoid air cells is similar to previous examination. The remaining paranasal sinuses are well-aerated. ECG Data Additional Comments: Normal sinus rhythm @88bpm Possible Left atrial enlargement Right bundle branch block T wave abnormality, consider lateral ischemia When compared with ECG of 18-JUL-2017 mild lateral depression noted in v5 and v6 Blood Pressure Blood Pressure Findings: Elevated blood pressure Blood Pressure Disposition: further management by hospitalist [facility] Narrative Physical exam and history were performed. Nursing notes, EMR, and Medication List were personally reviewed. Patient appears to have severe left-sided head pain that seems to be radiating into his neck and his shoulder. The patient appears quite uncomfortable on examination but nontoxic. IV access was established and labs were obtained. The patient was given IV morphine, IV Zofran, and IV fluids. He has already taken 2 baby aspirin tonight, and was given 2 more baby aspirin here in the department. 1 inch of Nitropaste was also placed as the patient appears to have some lateral EKG changes compared to 2017. CT scan of the head was performed due to his pain. The patient's blood work is as above and was reviewed. He does not have a significantly elevated white blood cell count, gross anemia, bandemia, or significant electrolyte imbalance. Lipase and transaminases are not diagnostic. Urine is without evidence of infection. CT scan was reviewed by myself and [employer] as showing no acute process. A repeat EKG was performed and was essentially unchanged from the initial EKG today. The patient's troponin x1 is negative. On reevaluation the patient has noted improvement of his symptoms. He rates his discomfort a 6/10, and I did offer additional pain medication, which he declined. Overall the patient does not appear well for discharge home. His pain certainly could be from an atypical migraine, however there is a component of jaw pain, neck pain, and shoulder pain that may be cardiac in nature. Additionally the patient initially had noted hypertension, and these things did seem to improve with cardiac regimen and morphine. The case was discussed with the on-call [facility] hospitalist, who agreed to evaluate the patient here in the department. Please see the hospitalist dictation for further patient course , plan, and disposition. The chart was completed utilizing [employer] Speech Voice Recognition Software. Grammatical errors, random word insertions, pronoun errors, and incomplete sentences are an occasional consequence of this system due to software limitations, ambient noise, and hardware issues. Any formal questions or concerns about the content, text, or information contained within the body of this dictation should be directly addressed to the provider for clarification. . Impression & Plan Headache, Atypical chest pain Discharge Plan Visit Data Chief Complaint: Headache Stated Complaint: SEVERE HEADACHE, NAUSEA, DIZZY ED Provider: Antonietta Blancas ED Midlevel Provider: Matteo May Discharge Problem: Headache, Atypical chest pain Patient Disposition: Being Evaluated by Hospitalist Discharge Instructions Interventions: ED Discharge Assessment Last Done: 11/22/18 05:23
[2018-11-22] MEDS ORDERED: NITROGLYCERIN SL 0.4 MG/TAB TAB SL PRN (06:04)
[2018-11-22] MEDS ORDERED: TRAMADOL HCL 50 MG TABLET PO PRN (06:04)
[2018-11-22] MEDS ORDERED: ACETAMINOPHEN 325 MG TAB PO PRN (06:04)
[2018-11-22] MEDS ORDERED: MoRPHine SULFATE 4 MG/ML 1 ML CARP\\VIAL IV PRN (06:04)
[2018-11-22] MEDS ORDERED: LORazepam 0.5 MG/1 ML VIAL IV PRN (06:04)
[2018-11-22] MEDS ORDERED: PROCHLORPERAZINE 5 MG in SYRINGE 4 ML IV PRN (06:04)
[2018-11-22] MEDS ORDERED: NSS + 20MEQ KCL 20 MEQ/1,000 ML BAG IV SCH (06:30)
[2018-11-22 06:45] LABS: Lyme Ab IgG w/WB Rflx Negative (Negative); Lyme Ab IgM w/WB Rflx Negative (Negative)
--- NOTE | 2018-11-22 06:59 | CT Scan Report ---
CT head/brain wo con CLINICAL HISTORY: 48 years-old Male presenting with left side headache. TECHNIQUE: Multidetector CT imaging of the head was performed without the use of intravenous contrast . IV contrast: None. A dose lowering technique was used consistent with the principles of ALARA (as l ow as reasonably achievable). COMPARISON: 07/18/2017. CT DOSE (mGy.cm): The estimated cumulative dose is 614.27 mGy.cm. FINDINGS: Plate Glass Grinder topogram: Unremarkable. Ventricles and sulci normal in size. No hemorrhage. Brain parenchyma normal in appearance with preser tara magallanes-white differentiation. No acute territorial infarct. No mass effect or midline shift. No ext ra-axial fluid collection. Paranasal sinuses and mastoid air cells clear. Calvarium intact. IMPRESSION: 1. No acute intracranial abnormality. Electronically signed by: Dino Soto M.D. 11/22/2018 6:58 AM
[2018-11-22] MEDS ORDERED: GADOBUTROL 65ML VIAL IV PRN (07:06)
--- NOTE | 2018-11-22 07:40 | Magnetic Resonance Report ---
MR brain wo/w con HISTORY: 48 years-old Male dunbar acute severe headache with dizziness and blurry vision COMPARISON: CT head of same day TECHNIQUE: Multiplanar multisequence MRI of the brain was obtained both with and without the use of 1 2 mL Gadavist FINDINGS: Customer Resolution Specialist localizer images demonstrate no gross abnormality. Midline structures including the corpus call osum, brainstem, optic chiasm, pituitary and pineal glands appear unremarkable on the sagittal T1 ser ies. Low-lying cerebellar tonsils extend 4 mm below the level the foramen magnum. Mild degenerative c hanges noted about the imaged cervical spine. Study is mildly motion degraded. No restricted diffusion to suggest acute or subacute infarction. No acute intracranial hemorrhage, mi dline shift, abnormal extra-axial collections, hydrocephalus or intracranial mass. Minimal T2/FLAIR h yperintensities of the left frontal lobe on image 9 series 7, likely of no clinical significance. No abnormal intra-axial or extra-axial enhancement. Major flow voids appear patent. Trace right mastoid effusion. Mild mucosal thickening of the left max illary sinus with moderate mucosal thickening of the ethmoid air cells. Skull and soft tissues are un remarkable. IMPRESSION: 1. No acute intracranial abnormality. 2. No abnormal enhancement. 3. Low-lying cerebellar tonsils. 4. Paranasal sinus disease as above. The above report was generated using voice recognition software. It may contain grammatical, syntax o r spelling errors. Electronically signed by: Jericho Tejeda M.D. 11/22/2018 7:39 AM
[2018-11-22 08:19] LABS: Estimated Average Glucose 126 mg/dl
[2018-11-22] MEDS ORDERED: METOPROLOL SUCC 25MG EXT REL TAB PO SCH (09:00)
[2018-11-22] MEDS ORDERED: ATORVASTATIN 40 MG TAB PO SCH (09:00)
[2018-11-22] MEDS ORDERED: ASPIRIN 81 MG ECTAB PO SCH (09:00)
[2018-11-22] MEDS ORDERED: ENOXAPARIN INJ 40 MG/0.4 ML SYR SQ SCH (09:00)
--- NOTE | 2018-11-22 12:21 | Neurology Consultation ---
Date of Consultation November 22, 2018 Assessment & Plan (1) Headache: 1. MRI with no lesion or stroke 2. non tender temporal - ESR 19 3. slight increase in WBC - steroids given 4. primary team for medical management 5. observation at this time 6. no reason to suspect temp arterities with patient. 7. will see patient in outpatient setting as needed. will sign off for now Supervising Physician Co-Signing Physician Notes I have seen and discussed above patient with Dr Elio Candelaria, neurology I have examined and interviewed Mr. Pride today and discussed his case with Darcie Zeng in addition to reviewing his MRI scan. He is now back to his baseline, his headache free, and the chest discomfort and paresthesias are resolved. He had apparently some visual issues prior to this headache onset in addition to the chest discomfort and provides a history now of having had some lower severity headaches over the past 6 months or so and a positive family history for migraines and I believe in a sister. His laboratory studies indicate nothing of significance. The question of temporal arteritis in my opinion is not applicable here as we have a man who is under the age of 50 with a sed rate that is only 19 and a headache that has resolved and has been very typical migrainous qualities to it. At this point is impossible to state whether or not he will continue to have these headaches and further observation with his primary care physician would be all that I would suggest. If indeed these become frequent affairs then we would be most happy to assess him in neurology and at that point would probably recommend initiation of some benign preventative medication such as magnesium oxide and riboflavin if he remains significantly headache free however I see no reason to even administer them at the time of discharge. Neurology will sign off at this point. There is no neurologic reason to delay his discharge at this time unless there are medical issues which I am unaware. Elio Candelaria MD History of Present Illness Reason for Consultation: unilateral dunbar ? [facility] Requesting Physician: Mehul Richmond MD Attending Physician: Mehul Richmond MD History of Present Illness Lesley is a 48 year old male who has a PMH HTN, several back surgeries, left foot fracture s/p surgery. He had abrupt onset severe stabbing/throbbing headache from the left forehead going to the back of his head and down his neck. He had some blurred vision bilaterally. The headache was relieved in the ED and the blurred vision stopped with the headache. This lasted about 6 hours and was completely gone this am. He has no history of head injury, or migraines. Although he has no history of complex migraines his sister has had migraines most of her life. He is on disability due to his back pain and surgeries. He has a history of sleep apnea but has never worn a bi pap or had a formal sleep study. He is a 1/2 ppd smoker, minimal caffeine and EtOH use, no other drugs. denies CP, SOB, abdominal pain, one sided weakness, numbness tingling, N, V. Allergies Allergy/AdvReac Type Severity Reaction Status Date / Time Penicillins Allergy Mild PT STATES Verified 11/22/18 00:48 UNKNOWN REACTION Home Medications Home Medications Medication Instructions Recorded Confirmed Type aspirin 81 mg PO DAILY 07/27/18 11/22/18 History atorvastatin 40 mg PO DAILY 11/22/18 11/22/18 History metoprolol succinate 25 mg PO DAILY 11/22/18 11/22/18 History Patient History Medical History Fusion of posterior lumbar spine (Resolved 06/05/13) Heart disease (Chronic) Hypertension (Acute 10/19/14) Hyperlipidemia (Chronic) Social History Current Living Situation: Spouse Feels Safe at Home: Yes Safety Concerns: Feels Safe At This Time Smoking Status: Light tobacco smoker Hx Substance Use: No Beliefs That Will Affect Care: None Preferred Language: Ghanaian Communication Ability: Effective Botany Technician Required: No Physical Exam 2 Vital Signs (Past 24 Hours): Last Vital Signs Temp 36.7 C 11/22/18 08:00 Pulse 89 11/22/18 08:00 Resp 15 11/22/18 08:00 BP 144/81 H 11/22/18 08:00 Pulse Ox 95 11/22/18 08:00 Physical Exam: Constitutional: appearance over- nourished, healthy and normal Ears, Nose, Mouth and Throat: mucous membranes moist, no injection and skin normal, eyes normal Cardiovascular: normal S-1 and S-2 and regular rate and rhythm Respiratory: course breath sounds Musculoskeletal: no peripheral edema and good distal pulses Skin: no stigmata of neurocutaneous disease noted and normal and intact Eyes: extraocular muscles intact (EOMI) and pupils equal, round and reactive to light (PERRL), good vascular pulsations. gross vision intact NEUROLOGIC EXAMINATION: Mental status: Alert and interactive Oriented to full date and location Oriented to person Speech fluent with no evidence of aphasia Cranial Nerves smile eye brow raise symmetric Reflexes: Deep tendon reflexes were symmetrical and graded 2/5. Plantar responses were flexor. Sensory: to light or cool touch, bilateral temples, non tender to touch Coordination: finger to nose no bi pass Gait/Stance: Posture normal. lying in bed. Motor: Negative for pronator drift of out stretched arms with eyes closed. Strength: hand sales recruiting coordinator biceps triceps, deltoids, hip flex patellar plantar flex ext all bilateral 5/5 Results & Data Laboratory Results Abnormal lab results 11/21/18 11/21/18 11/21/18 Range/Units 23:24 23:24 23:24 WBC 12.64 H (4.8-10.8) K/uL RDW Std Deviation 47.5 H (36.4-46.3) fL MPV 10.5 H (7.4-10.4) fL Immature Gran # (Auto) 0.03 H (0.00-0.02) K/uL Neut # (Auto) 8.29 H (1.4-6.5) K/uL Lymph # (Auto) (1.2-3.4) K/uL [place] # (Auto) 0.80 H (0.11-0.59) K/uL ESR (0-14) mm/hr APTT 31.4 H (21.0-31.0) Seconds Chloride (98-107) mmol/L Glucose (70-99) mg/dl Hemoglobin A1c (4.5-5.6) % Calcium (8.5-10.1) mg/dl Alkaline Phosphatase 140 H (45-117) U/L C-Reactive Protein (0-0.29) mg/dl Total Protein 8.4 H (6.4-8.2) gm/dl Globulin 4.7 H (2.5-4.0) gm/dl Albumin/Globulin Ratio 0.8 L (0.9-2) Urine Blood (Negative) 11/22/18 11/22/18 11/22/18 Range/Units 00:00 05:24 05:24 WBC 11.12 H (4.8-10.8) K/uL RDW Std Deviation 47.9 H (36.4-46.3) fL MPV (7.4-10.4) fL Immature Gran # (Auto) 0.03 H (0.00-0.02) K/uL Neut # (Auto) 6.56 H (1.4-6.5) K/uL Lymph # (Auto) 3.68 H (1.2-3.4) K/uL [place] # (Auto) (0.11-0.59) K/uL ESR 19 H (0-14) mm/hr APTT (21.0-31.0) Seconds Chloride (98-107) mmol/L Glucose (70-99) mg/dl Hemoglobin A1c (4.5-5.6) % Calcium (8.5-10.1) mg/dl Alkaline Phosphatase (45-117) U/L C-Reactive Protein (0-0.29) mg/dl Total Protein (6.4-8.2) gm/dl Globulin (2.5-4.0) gm/dl Albumin/Globulin Ratio (0.9-2) Urine Blood Trace H (Negative) 11/22/18 11/22/18 Range/Units 05:24 05:24 WBC (4.8-10.8) K/uL RDW Std Deviation (36.4-46.3) fL MPV (7.4-10.4) fL Immature Gran # (Auto) (0.00-0.02) K/uL Neut # (Auto) (1.4-6.5) K/uL Lymph # (Auto) (1.2-3.4) K/uL [place] # (Auto) (0.11-0.59) K/uL ESR (0-14) mm/hr APTT (21.0-31.0) Seconds Chloride 108 H (98-107) mmol/L Glucose 112 H (70-99) mg/dl Hemoglobin A1c 6.0 H (4.5-5.6) % Calcium 8.4 L (8.5-10.1) mg/dl Alkaline Phosphatase 130 H (45-117) U/L C-Reactive Protein 0.84 H (0-0.29) mg/dl Total Protein (6.4-8.2) gm/dl Globulin 4.4 H (2.5-4.0) gm/dl Albumin/Globulin Ratio 0.8 L (0.9-2) Urine Blood (Negative) Diagnostic Findings MRI brain- No acute intracranial abnormality. No abnormal enhancement. Low- lying cerebellar tonsils. Paranasal sinus disease. CT head- No acute intracranial abnormality. _ (1) Headache Headache chronicity pattern: acute headache Headache type: unspecified Intractability: not intractable Qualified Code(s): R51 - Headache
[2018-11-22] MEDS ORDERED: PANTOprazole 40 MG TAB PO SCH (12:30)
--- NOTE | 2018-11-22 16:24 | Hospitalist Progress Note ---
Date of Service November 22, 2018 Assessment & Plan (1) Headache: Likely secondary to Migraine Uncontrolled blood pressure could have contributed Temporal arteritis unlikely MRI Brain: No acute intracranial abnormality. ESR only 19 No temporal tenderness on exam, headache resolved Appreciate Neurolgy Input Needs follow up with Neurology as outpatient Suggested to take magnesium oxide and riboflavin if headache reoccurs Atypical Chest pain H/O Nonocclusive CAD Likely secondary to uncontrolled Blood pressure Patient admits to eating salty foods during the holidays Cardiac enzymes: Negative ECHO: No wall motion abnormalities Also reports GERD like Symptoms over the past 2 weeks Discussed regarding EKG changes, patient preferred to follow up with his Reactor Operator as outpatient Increase Metoprolol to 50mg and add Losartan for better Bp control GERD: Start on Protonix Hyperlipidemia Continue statin Prediabetes A1C: 6.0 Advised dietary changes Ongoing tobacco abuse 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 DVT Px: Lovenox SQ Code Status Full code Subjective Patient is seen and examined at bedside Patient feels back to baseline today Headache and chest pain resolved Denies any dizziness, nausea, and pain Reports having heartburn symptoms over past 2 weeks and agrees to having high salt diet during holidays No other complaints Physical Exam 2 Vital Signs (Past 24 Hours): Last Vital Signs Temp 36.4 C L 11/22/18 15:35 Pulse 70 11/22/18 15:35 Resp 20 11/22/18 15:35 BP 139/86 11/22/18 15:35 Pulse Ox 94 11/22/18 15:35 Physical Exam: Physical Exam: Vitals signs as noted above General Appearance:Moderately built and nourished, no apparent distress Head: normocephalic, Atraumatic Eyes: normal inspection, EOMI Neck: supple, Trachea midline Respiratory/Chest: Decreased breath sounds, CTA Cardiovascular: S1, S2, No murmur Abdomen/GI:Soft, Non tender, Bowel sounds present Extremities/Musculoskelatal:normal inspection, no edema Neurologic/Psych:AAOX3, grossly no focal neurological deficits Skin: normal color, warm Results & Data Laboratory Results Short CBC 11/21/18 11/22/18 Range/Units 23:24 05:24 WBC 12.64 H 11.12 H (4.8-10.8) K/uL Hgb 15.2 14.5 (14.0-18.0) g/dL Hct 45.6 43.6 (42-52) % Plt Count 234 207 (130-400) K/uL BMP 11/21/18 11/22/18 23:24 05:24 Sodium 139 138 Potassium 3.8 4.2 Chloride 107 108 H Carbon Dioxide 26 27 BUN 11 10 Creatinine 0.91 0.93 Glucose 82 112 H Calcium 8.9 8.4 L Cardiac Enzymes 11/21/18 11/22/18 Range/Units 23:24 05:24 Troponin I < 0.015 < 0.015 (0-0.045) ng/ml Liver Function 11/21/18 11/22/18 Range/Units 23:24 05:24 Total Bilirubin 0.3 0.4 (0.2-1) mg/dl AST 17 16 (15-37) U/L ALT 38 36 (12-78) U/L Alkaline Phosphatase 140 H 130 H (45-117) U/L Albumin 3.7 3.4 (3.4-5.0) gm/dl Urine 11/22/18 Range/Units 00:00 Urine Color Yellow Urine Appearance Clear (Clear) Urine pH 5.5 (4.5-7.5) Ur Specific [place] 1.020 (1.000-1.030) Urine Protein Negative (Negative) Urine Glucose (UA) Negative (Negative) Diagnostic Findings MRI Brain: 1. No acute intracranial abnormality. 2. No abnormal enhancement. 3. Low-lying cerebellar tonsils. 4. Paranasal sinus disease as above. CT head: No acute intracranial abnormality. _ (1) Headache Headache chronicity pattern: acute headache Headache type: unspecified Intractability: not intractable Qualified Code(s): R51 - Headache
--- NOTE | 2018-11-22 16:53 | Discharge Summary ---
Date of Service November 22, 2018 Admission HPI Per Admitting Provider History obtained from patient and records. Medical history significant for CAD, hypertension, hyperlipidemia, ongoing tobacco abuse, prediabetes, arthritis. Recent confinement March 2017 under Orthopedics service for foot surgery. Last night patient had abrupt onset severe stabbing/throbbing headache from the left forehead going to the back of his head associated with dizziness described as lightheadedness, nausea, emesis. Transient blurred vision bilateral. No prior episodes as per patient. Patient later experienced left-sided chest pain going to the jaw without shortness of breath and diaphoresis. Some relief of chest pain with aspirin intake at home. No relief of headache. Medical History as above Patient completed doxycycline for presumptive Lyme April 2018 Surgical History : Back surgeries, wrist surgery, foot surgery Family History : Heart disease Personal/Social history : Half pack daily, no EtOH intake, disabled Admission Exam Per Admitting Provider GENERAL: uncomfortable, obese, no respiratory distress SKIN: Normal color, warm HEENT: [place] palpebral conjunctivae, no ptosis, dry buccal mucosa NECK : Supple, short neck, no tenderness CHEST : CTA, no tenderness HEART : RRR, no obvious murmurs ABDOMEN: Some distention, nontender EXTREMITIES : No LE swelling/tenderness, no other conspicuous deformities noted NEUROLOGIC : Coherent, no facial asymmetry, no other gross focality Principal Diagnosis Discharge Information Discharge Diagnosis Headache: Likely Migraine Atypical Chest Pain Discharge Goals Decrease discomfort,Improve disease control, Improve function Discharge Activity Limitations Resume your previous activity Discharge Data Allergies Allergy/AdvReac Type Severity Reaction Status Date / Time Penicillins Allergy Mild PT STATES Verified 11/22/18 00:48 UNKNOWN REACTION Consultations 11/22/18 03:36 ED Decision to Admit Stat 11/22/18 06:04 Consult Neurology Routine Procedures Performed MRI Brain: 1. No acute intracranial abnormality. 2. No abnormal enhancement. 3. Low-lying cerebellar tonsils. 4. Paranasal sinus disease as above. CT head: No acute intracranial abnormality. ECHO: The left ventricle is normal in size There is moderate concentric left ventricular hypertrophy The left ventricular wall motion is normal Ejection fraction = 60-65% There is no significant valvular disease The aortic root is normal size There is no pericardial effusion Ordered Studies 11/22/18 00:16 CT head/brain wo con Urgent 11/22/18 06:04 MR brain wo/w con Urgent Hospital Course (1) Headache: Likely secondary to Migraine Uncontrolled blood pressure could have contributed Temporal arteritis unlikely MRI Brain: No acute intracranial abnormality. ESR only 19 No temporal tenderness on exam, headache resolved Appreciate Neurolgy Input Needs follow up with Neurology as outpatient Suggested to take magnesium oxide and riboflavin if headache reoccurs Atypical Chest pain H/O Nonocclusive CAD Likely secondary to uncontrolled Blood pressure Patient admits to eating salty foods during the holidays Cardiac enzymes: Negative ECHO: No wall motion abnormalities Also reports GERD like Symptoms over the past 2 weeks Discussed regarding EKG changes, patient preferred to follow up with his Control System Manager as outpatient Increase Metoprolol to 50mg and add Losartan for better Bp control GERD: Start on Protonix Hyperlipidemia Continue statin Prediabetes A1C: 6.0 Advised dietary changes Ongoing tobacco abuse 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 DVT Px: Lovenox SQ Code Status Full code Total Time Total Time Spent Total Time Spent (In Minutes): 25 minutes Total Time Includes: Examination of the Patient, Discharge Planning, Medication Reconciliation, Communication With Other Providers and Other Discharge Plan Discharge Items Patient Disposition: Home - Self-Care Reason For Visit: CHAPIN, SHAISTA Discharge Diagnosis: Headache: Likely Migraine Atypical Chest Pain Condition: Fair Discharge Goals: Decrease discomfort, Improve disease control and Improve function Activity: Resume your previous activity Exercise/Sports: Gradually increase as tolerated Non-emergency contact: Primary Care Provider and Neurologist Call non-emergency contact if: you have any medication questions, your symptoms worsen, your pain is not controlled, your pain is worsening, your pain is unusual for you and you have a fever Diet: Heart Healthy Addtl Provider Instructions: Follow up with your Physician on 11/29/18 at 11:05Am Follow up with your Control System Manager Sudhir in 2 weeks as advised Follow up with your Neurologist Bari Boateng in 2-4 weeks as advised Seek immediate medical attention if your symptoms reoccur or worsen Prescriptions: New metoprolol succinate 50 mg tablet extended release 24 hr 50 mg PO DAILY 30 Days Qty: 30 RF: 0 pantoprazole 40 mg Tablet,Delayed Release (Dr/Ec) 40 mg PO QAM 30 Days Qty: 30 RF: 0 losartan 25 mg Tablet 25 mg PO QAM 30 Days Qty: 30 RF: 0 Continue aspirin 81 mg Tablet,Chewable 81 mg PO DAILY RF: 0 atorvastatin 40 mg Tablet 40 mg PO DAILY RF: 0 Discontinued metoprolol succinate 25 mg Tablet Extended Release 24 Hr 25 mg PO DAILY RF: 0 Stand-Alone Forms: [facility] Discharge Orders: Discharge Order (Routine); Ordered 11/22/18 Ordered By: Mehul Richmond Admission Data Admit Date/Time: 11/22/18 05:08 Attending Provider: Mehul Richmond Admit Provider: Gopal Tucker Primary Care Provider: Hang Dickson Other Providers: Gopal Tucker ; Darcie Escobar ; Elio Candelaria ; Darcie Luque ; Minerva Arias ; Josue Kohli ; Merle Villar Service: Telemetry Medical Other Interventions: Discharge Summary Assessment (RN) Last Done: 11/22/18 17:04 Pending Studies at Discharge: No DC Date/Time DO NOT enter until pt leaves facility: 11/22/18 17:50
[2018-11-23] MEDS ORDERED: METOPROLOL SUCC 25MG EXT REL TAB PO SCH (09:00)
[2018-11-23] MEDS ORDERED: LOSARTAN POTASSIUM 25 MG TAB PO SCH (09:00)
== END 2018-11-22 17:50 | disposition home or self-care (01) ==
LOC: 1E 23:06 → ED 23:06 → 1E 11-22 05:23 → 2N 11-22 09:36

== ENCOUNTER 2019-12-02 06:33 | Observation (INO) ==
[2019-12-02] MEDS ORDERED: NiCARDipine HCL INJ 2.5 MG/ML 10 ML AMP ONE (08:00)
[2019-12-02] MEDS ORDERED: HEPARIN (PORCINE) 1000 UNIT/ML 10 ML (CATH LAB USE ONLY) ONE ×2 (08:00→10:31)
[2019-12-02] MEDS ORDERED: MIDAZOLAM HCL 1 MG/ML 2ML VIAL ONE ×3 (08:00→10:25)
[2019-12-02] MEDS ORDERED: fentaNYL citrate 100 MCG/2 ML VIAL ONE ×2 (08:00→10:25)
[2019-12-02] MEDS ORDERED: NITROGLYCERIN/D5W 100MCG/ML 20ML SYR ONE (08:01)
--- NOTE | 2019-12-02 08:39 | History & Physical Bridge Note ---
Date of Service December 02, 2019 History & Physical Bridge Note I have examined the patient, reviewed the History & Physical and in the interval since the performance of the History & Physical I have noted the following changes of clinical significance: no changes noted
--- NOTE | 2019-12-02 08:39 | Pre Anesthesia Assessment ---
Date of Service December 02, 2019 Pre Sedation Assessment Vital Signs Temp Pulse Pulse Pulse Resp BP Pulse Ox 12/03/19 08:00 49 L 12/03/19 07:48 36.5 C 59 L 20 145/93 H 97 12/03/19 04:25 36.4 C L 57 L 18 135/86 98 12/03/19 01:12 60 12/02/19 23:35 36.7 C 62 18 133/84 97 12/02/19 19:51 36.4 C L 68 18 158/96 H 95 12/02/19 16:00 36.6 C 72 18 156/97 H 97 12/02/19 15:30 57 L 18 145/91 H 98 12/02/19 15:11 63 12/02/19 14:45 58 L 18 152/92 H 97 12/02/19 14:29 63 12/02/19 14:15 68 18 159/93 H 97 12/02/19 14:11 36.7 C 60 18 136/87 98 12/02/19 14:00 70 17 141/90 H 97 12/02/19 13:15 76 16 157/93 H 95 12/02/19 13:00 75 16 150/88 H 95 12/02/19 12:45 75 16 138/92 95 12/02/19 12:30 80 16 148/91 H 95 12/02/19 12:15 75 16 148/88 H 96 12/02/19 12:00 72 16 140/89 96 12/02/19 11:45 94 H 16 141/96 H 96 12/02/19 11:30 95 H 16 132/96 95 12/02/19 11:20 74 16 127/90 96 12/02/19 11:05 74 16 145/93 H 96 12/02/19 11:00 74 16 149/103 H 96 12/02/19 10:55 74 16 149/103 H 96 12/02/19 10:50 73 16 162/96 H 96 Cardiovascular RRR, no murmur, no edema Respiratory normal respiratory effort, lungs clear to auscultation Pre-Sedation Airway Assessment Smoking Status: Current every day smoker Hx Sleep Apnea: No Short, Thick Neck: No Thyromental Distance: > or= 3.5 Finger Breadths Oral Cavity: + WNL Mallampati Class: III ASA: ASA3 NPO Status Date of Last Intake of Fluids: 12/01/19 Time of Last Intake of Fluids: 19:00 Date of Last Intake of Solid Food: 12/01/19 Time of Last Intake of Solid Foods: 19:00 Procedure Planning Contraindications for Sedation: none Current Medications Reviewed: Yes Notes The planned sedation has been discussed with the patient. Informed Consent was obtained. I have identified the patient, determined the appropriateness of sedation and have assessed the patient immediately prior to the procedure. All medicine(s) and interventions are by my order.
[2019-12-02] MEDS ORDERED: ADENOSINE IV SOLN 3 MG/ML 20 ML VIAL IV ONE (09:43)
--- NOTE | 2019-12-02 09:52 | Post Anesthesia Assessment ---
Date of Service December 02, 2019 Post Sedation Assessment Vital Signs Temp Pulse Pulse Pulse Resp BP Pulse Ox 12/03/19 08:00 49 L 12/03/19 07:48 36.5 C 59 L 20 145/93 H 97 12/03/19 04:25 36.4 C L 57 L 18 135/86 98 12/03/19 01:12 60 12/02/19 23:35 36.7 C 62 18 133/84 97 12/02/19 19:51 36.4 C L 68 18 158/96 H 95 12/02/19 16:00 36.6 C 72 18 156/97 H 97 12/02/19 15:30 57 L 18 145/91 H 98 12/02/19 15:11 63 12/02/19 14:45 58 L 18 152/92 H 97 12/02/19 14:29 63 12/02/19 14:15 68 18 159/93 H 97 12/02/19 14:11 36.7 C 60 18 136/87 98 12/02/19 14:00 70 17 141/90 H 97 12/02/19 13:15 76 16 157/93 H 95 12/02/19 13:00 75 16 150/88 H 95 12/02/19 12:45 75 16 138/92 95 12/02/19 12:30 80 16 148/91 H 95 12/02/19 12:15 75 16 148/88 H 96 12/02/19 12:00 72 16 140/89 96 12/02/19 11:45 94 H 16 141/96 H 96 12/02/19 11:30 95 H 16 132/96 95 12/02/19 11:20 74 16 127/90 96 12/02/19 11:05 74 16 145/93 H 96 12/02/19 11:00 74 16 149/103 H 96 12/02/19 10:55 74 16 149/103 H 96 12/02/19 10:50 73 16 162/96 H 96 Recovery Score Activity: Moves 4 extremities Respiration: Deep Breath/Cough Circulation: +/-20% PreAnes Value Consciousness: Fully Awake Oxygen Saturation: > 92% On Room Air Discharge Sedation Level of Care: Phase I Post Sedation Plan On clinical assessment, the patient appears to have tolerated the sedation without complications. Patient is recovering as anticipated. Patient will continue to be monitored by nursing and may be discharged when sedation discharge criteria are met per below protocol. Upon Completions of procedure up to 15 minutes continue every 5 minute vital signs and the P.A.R. score; then discharge to a Phase I or Fast Track to Phase II per the following guidelines: * Discharge Patient to appropriate Phase II area if PAR is 8 or greater or return to pre- procedure baseline. The post - procedure orders will be as directed. * If PAR score is less than 8 or not return to pre-procedure baseline then patient will follow Phase I monitoring till PAR is reached for Phase II. The Phase I may be done in procedure room or may call to secure a Phase I area. * If naloxone or flumazenil are used for reversal, hold in Phase I for continu ed monitoring from when last reversal dose was given for a minimum of 60 minutes or longer pending the nurse and/or physician discretion of patient condition before discharge to Phase II. Please call the Sedation Physician to re-evaluate and complete post-note for discharge to Phase II area. Do NOT discharge from procedure sedation or Phase 1 until post- sedation evaluation note is complete by procedure /sedation MD Sedation Discharge Instructions to be given to the patient at discharge to home.
--- NOTE | 2019-12-02 10:01 | Cardiac Catheterization ---
Cardiac Cath Procedure Full Procedure Date December 02, 2019 Pre-Procedure Diagnosis Pre-Procedure Diagnosis: Cardiothoracic Symptom AUC Score AUC Score: 7 Post-Procedure Diagnosis Post-Procedure Diagnosis: Moderate CAD Procedure(s) Performed Procedure(s) Performed: Coronary Angiography and Left Heart Cath Merchandising Representative Jonathan Crump DO Production Underwriter(s) Bethany JOURNEYMAN PRESS OPERATOR Estimated Blood Loss Estimated Blood Loss: 5cc Medication(s) Medication(s): Fentanyl, Heparin, Lidocaine 1%, Nicardipine, Nitroglycerin and Versed Summary of Findings 60% proximal LAD stenosis Hemodynamics Rest Ao:: 118/81/98 Final Ao: 140/89/111 LV: 121/1/5 Recommendations Recommendations: Management Recommendatons (FFR LAD) Specimens Specimens: None Radiation Exposure (mGy) 1468 Contrast (mls) 75 Fluids (cc crystalloids) Fluids (cc crystalloids): 97 Nss Anesthesia Moderate Sedation. Start 0908. End 0945. Sedation monitor: Russell TREJO Procedural Complication(s) None Disposition Patient remained in Rubber Goods Inspector Tester for FFR of LAD I attest to the content of the Intraoperative Record and any orders documented therein. Any exceptions are noted below. ACC Data: Rubber Goods Inspector Tester Cardiac Status Clinical evaluation leading to the procedure CAD Presenation: Stable angina Anginal Classification: CCS II Heart Failure: No Stress Testing w/SPECT MPI: Yes - Negative Coronary Anatomy Dominant: Right Left Main (% Stenosis): Ostial (20% taper) LAD (% Stenosis): Proximal (60%) and Mid (20%) Circumflex (% Stenosis): Normal OM1 (% Stenosis): Normal OM2 (% Stenosis): Normal RCA (% Stenosis): Proximal (10% diffuse) and Distal (10-20% diffuse) R PDA (% Stenosis): Normal R PL1 (% Stenosis): Normal Diagnostic Physicians Name: Jonathan Crump DO Status: Elective Closure Device Percutaneous Entry Location: Radial Closure Device: Radial Band Recommendations: Management Recommendatons (FFR LAD) Intraprocedure Events Significant Disection: No Perforation: No
[2019-12-02] MEDS ORDERED: NITROGLYCERIN SL 0.4 MG/TAB TAB SL PRN (10:46)
[2019-12-02] MEDS ORDERED: ACETAMINOPHEN 325 MG TAB PO PRN (10:46)
--- NOTE | 2019-12-02 10:49 | Post Anesthesia Assessment ---
Date of Service December 02, 2019 Post Sedation Assessment Vital Signs Temp Pulse Resp BP Pulse Ox 12/02/19 07:19 98.2 F 72 16 161/107 H 98 Recovery Score Activity: Moves 4 extremities Respiration: Deep Breath/Cough Circulation: +/-20% PreAnes Value Consciousness: Fully Awake Oxygen Saturation: > 92% On Room Air Discharge Sedation Level of Care: Fast Track Phase II Post Sedation Plan On clinical assessment, the patient appears to have tolerated the sedation without complications. Patient is recovering as anticipated. Patient will continue to be monitored by nursing and may be discharged when sedation discharge criteria are met per below protocol. Upon Completions of procedure up to 15 minutes continue every 5 minute vital signs and the P.A.R. score; then discharge to a Phase I or Fast Track to Phase II per the following guidelines: * Discharge Patient to appropriate Phase II area if PAR is 8 or greater or return to pre- procedure baseline. The post - procedure orders will be as directed. * If PAR score is less than 8 or not return to pre-procedure baseline then patient will follow Phase I monitoring till PAR is reached for Phase II. The Phase I may be done in procedure room or may call to secure a Phase I area. * If naloxone or flumazenil are used for reversal, hold in Phase I for continued monitoring from when last reversal dose was given for a minimum of 60 minutes or longer pending the nurse and/or physician discretion of patient condition before discharge to Phase II. Please call the Sedation Physician to re-evaluate and complete post-note for discharge to Phase II area. Do NOT discharge from procedure sedation or Phase 1 until post- sedation evaluation note is complete by procedure /sedation MD Sedation Discharge Instructions to be given to the patient at discharge to home.
[2019-12-02] MEDS ORDERED: CLOPIDOGREL BISULFATE 300 MG TAB ONE (10:50)
--- NOTE | 2019-12-02 10:55 | Cardiac Catheterization ---
[facility] Data: [employer] Cardiac Status Clinical evaluation leading to the procedure CAD Presenation: Stable angina Anginal Classification: CCS III Heart Failure: No Cardiogenic Shock within 24 Hours: No Cardiac Arrest within 24 Hours: No Imaging Studies Past 6 Months: Yes Stress Studies Past 6 Months: Yes Stress Testing w/SPECT MPI: Yes - Negative Diagnostic Physicians Name: Sami Adballa MD Status: Elective Closure Device Percutaneous Entry Location: Radial Closure Device: Radial Band Recommendations: PCI without planned CABG PCI Indication: Stable Angina Lesion Segment Name: proximal to mid LAD Culprit Artery: Yes Stenosis Prior to Rx (%): 60-70 Chronic Total Occlusion: No IVUS: No FFR: Yes Ratio: less than or equal to 0.75% Pre-Procedure ANALILIA Flow: 3 Previously Treated Lesion: No Lesion Complexity: Non-High/Non-C Lesion Length (mm): 15 Thrombus Present: No Bifurcation Lesion: No Guidewire Across Lesion: Stenosis Post-Procedure (%): 0 Post-Procedure ANALILIA Flow: 3 Devices(s) Deployed: Yes Yes Intraprocedure Events Significant Disection: No Perforation: No Cardiac Cath Procedure Full Procedure Date December 02, 2019 Pre-Procedure Diagnosis Pre-Procedure Diagnosis: Angina AUC Score AUC Score: 7 Post-Procedure Diagnosis Post-Procedure Diagnosis: Severe CAD and Successful PCI Procedure(s) Performed Procedure(s) Performed: Coronary Angiography, Drug Eluting Stent and Fractional Flow [place] Fly Fishing Guide Sami Abdalla MD Database Administration Manager(s) Bethany BLACKBURN Estimated Blood Loss Estimated Blood Loss: 15 Medication(s) Medication(s): Clopidogrel, Fentanyl, Heparin, Lidocaine 1%, Nitroglycerin and Versed Summary of Findings Indication: Refractory angina Access: 6 Fr slender right radial artery Catheters: EBU 3.5 guide Findings: For full details of patient's coronary angiography please cath report dictated by Dr. Crump. Briefly, patient found to have intermediate single vessel disease involving his proximal to mid LAD. Decision to assess further with FFR, with possible PCI -- PCI -- Antithrombotic therapy: Heparin, clopidogrel Procedure: Left main cannulated with EBU 3.5 guide BMW wire passed across lesion into distal vessel ACIST FFR catheter placed into latemid LAD Pd/Pa 0.89 FFR 0.69 Proximal to mid LAD lesion predilated with 2.5 compliant balloon Dilated lesion stented with 3.5 x 18 mm [place] drug-eluting stent Stent post-dilated with 3.5 noncompliant balloon IC vasodilators administered for spasm Post procedure ANALILIA 3 flow, stent well expanded with minimal residual stenosis and no apparent cardiac complications. Arterial Closure: TR band Summary: 1. Severe single vessel coronary artery disease -60-70% proximal mid LAD (FFR 0.69). 2. Successful PCI of proximal to mid LAD with single drug-eluting stent (3.5 x 18 mm [place]). Recommendations: To PCU for continued monitoring Loaded with clopidogrel 600 mg in cardiac cath technician Continue dual-antiplatelet therapy for at least 6 months Continue statin, and ASCVD risk factor modification Consult cardiac Rehab Hemodynamics Rest Ao:: 138/80/96 Final Ao: 123/87/104 LV: -- Recommendations Recommendations: PCI without planned CABG Specimens Specimens: None Radiation Exposure (mGy) 2766 Contrast (mls) 125 Fluids (cc crystalloids) Fluids (cc crystalloids): 188 Drains Drains: none Anesthesia Moderate Sedation. Procedural Complication(s) None Disposition PCU I attest to the content of the Intraoperative Record and any orders documented therein. Any exceptions are noted below. [facility] Card Cath Procedure Codes Cardiac Catheterization Procedure 1: Cardiovascular Cath Procedures: 77002 (Doppler) Pressure Wire Moderate Sedation Procedure 1: Sedation/Anesthesia: 86387 Mod Sedation by a different physician ;Init15 Min Child Age 5&Up Procedure 2: Sedation/Anesthesia: 60884 Mod Sedation by a different physician;Ea Additional 15 Minutes Stenting Procedure 1: Cardiovascular Stent Procedures: 09751 Perc transcatheter placement of intracoronary stent(s), with ang PG Care Time/CCT Total # of Minutes Spent Total Time Spent with Patient: Total time spent is greater than 50% in coordination of care (as documented) at patient's floor/unit and/or counseling patient:
--- NOTE | 2019-12-02 12:11 | Electrocardiogram Report ---
Test Reason : Blood Pressure : / mmHG Vent. Rate : 073 BPM Atrial Rate : 073 BPM P-R Int : 158 ms QRS Dur : 142 ms QT Int : 430 ms P-R-T Axes : 048 -22 002 degrees QTc Int : 473 ms Normal sinus rhythm Right bundle branch block Abnormal ECG When compared with ECG of 28-SEP-2019 23:01, T wave inversion less evident in Anterior leads Confirmed by rFedrick Talamantes ([id number]) on 12/02/2019 12:10:44 PM Referred By: Jonathan Crump Confirmed By:Fredrick Talamantes
[2019-12-02] MEDS ORDERED: SODIUM CHLORIDE 0.9% 1000ML 1,000 ML IV SCH (14:30)
[2019-12-02 14:59] LABS: Est GFR (African American) 108.5; Est GFR (Non-African American) 93.6
[2019-12-02] MEDS ORDERED: MoRPHine SULFATE 2 MG/ML CARP IV PRN (16:41)
[2019-12-02] MEDS ORDERED: METOPROLOL SUCC 50MG EXT REL TAB PO SCH (21:00)
[2019-12-02] MEDS ORDERED: ATORVASTATIN 40 MG TAB PO SCH (21:00)
[2019-12-02] MEDS ORDERED: LOSARTAN POTASSIUM 25 MG TAB PO SCH (21:00)
[2019-12-03 05:53] LABS: Basophils # (auto) 0.02 K/uL (0-0.2); Basophils % (auto) 0.2 %; Eosinophils # (auto) 0.11 K/uL (0-0.5); Eosinophils % (auto) 1.2 %; Hematocrit (blood only) 41.7 % (42-52); Immature Granulocytes # (auto) 0.01 K/uL (0.00-0.02); Immature Granulocytes % (auto) 0.1 %; Lymphocytes # (auto) 2.81 K/uL (1.2-3.4); Lymphocytes % (auto) 30.3 %; Mean Corpuscular Hemoglobin 31.1 pg (25-34); Mean Corpuscular Hgb Conc 33.6 g/dL (32-36); Mean Corpuscular Volume 92.7 fL (80-100); Mean Platelet Volume 10.1 fL (7.4-10.4); Monocytes % (auto) 7.6 %; Neutrophils # (auto) 5.62 K/uL (1.4-6.5); Neutrophils % (auto) 60.6 %; Platelet Count 191 K/uL (130-400); RDW Coefficient of Variation 14.5 % (11.5-14.5); White Blood Count 9.27 K/uL (4.8-10.8)
[2019-12-03 06:24] LABS: BUN Creatinine Ratio 12.5 (10-20); Calcium 8.4 mg/dl (8.5-10.1); Creatinine Clr Calc Pharmacy 128.6 ml/min; Est GFR (African American) 114.3; Est GFR (Non-African American) 98.6; Potassium 3.9 mmol/L (3.5-5.1)
[2019-12-03] MEDS ORDERED: ASPIRIN 81 MG ECTAB PO SCH (09:00)
[2019-12-03] MEDS ORDERED: CLOPIDOGREL BISULFATE 75 MG TAB PO SCH (09:00)
--- NOTE | 2019-12-03 09:59 | Cardiology Progress Note ---
Date of Service December 03, 2019 Assessment & Plan (1) CAD (coronary artery disease), [place] coronary artery: (2) Status post insertion of drug-eluting stent into left anterior descending (LAD) artery: (3) Dyslipidemia, goal LDL below 70: (4) Tobacco abuse: (5) HTN (hypertension): 49-year-old patient admitted after elective cardiac catheterization revealed severe proximal LAD stenosis. Drug-eluting stent implanted without complication. Recommend dual antiplatelet therapy for minimum of 6 months post percutaneous intervention. Discussed importance of continuing dual antiplatelet therapy uninterrupted. Patient voiced understanding. Titrate atorvastatin to 80 mg daily. Repeat fasting lipid panel and ALT in 6 weeks. Smoking cessation advised. Appropriate of sublingual nitroglycerin reviewed. All questions answered to patient's satisfaction. Will be discharged home today with routine cardiology follow-up in 2 to 4 weeks. Subjective Patient seen and examined at the bedside. Right wrist discomfort reported last evening treated with 1 dose of intravenous morphine. Pain has subsided. Tolerating current medications. No chest discomfort overnight. No dysrhythmias on telemetry. Offers no complaints at this time Review of Systems Review of Systems: All systems reviewed & are unremarkable except as noted in HPI & below Physical Exam Constitutional: well developed, well nourished and + obese Respiratory: normal respiratory effort, lungs clear to auscultation Cardiovascular: Rate/Rhythm: regular rate and regular rhythm Heart Sounds: normal S1 and normal S2; no murmur and no cardiac rub Vessels: radial pulses present and ulnar pulses present; no JVD Extremities: no edema Gastrointestinal (Abdomen): Inspection/Auscultation: abdomen normal to inspection and normal bowel sounds; abdomen not distended Percussion/Palpation: abdomen soft; abdomen nontender, no guarding and abdomen not rigid Musculoskeletal: no cyanosis or clubbing, extremities motor strength 5/5 Skin: no rashes, warm and dry Neurologic: CN's II-XI intact bilaterally and moves all extremities; no focal motor deficits Psychiatric: A+Ox3, euthymic affect Results & Data Vital Signs (Past 12 Hours) Vital Signs Temp Pulse Pulse Pulse Resp BP Pulse Ox 12/03/19 08:00 49 L 12/03/19 07:48 36.5 C 59 L 20 145/93 H 97 12/03/19 04:25 36.4 C L 57 L 18 135/86 98 01/15/20 01:12 60 12/02/19 23:35 36.7 C 62 18 133/84 97 (1) CAD (coronary artery disease), [place] coronary artery [place] vs. transplanted heart: [place] heart Associated angina: with unstable angina Qualified Code(s): I25.110 - Atherosclerotic heart disease of [place] coronary artery with unstable angina pectoris (2) HTN (hypertension) Hypertension type: essential hypertension Qualified Code(s): I10 - Essential (primary) hypertension
[2019-12-03] MEDS ORDERED: ENOXAPARIN INJ 40 MG/0.4 ML SYR SQ SCH (10:45)
[2019-12-03] MEDS ORDERED: ATORVASTATIN 40 MG TAB PO SCH (21:00)
--- NOTE | 2019-12-15 16:36 | Discharge Summary ---
Date of Service December 15, 2019 Specialty Data Cardiology 1. Severe single vessel coronary artery disease -60-70% proximal mid LAD (FFR 0.69). 2. Successful PCI of proximal to mid LAD with single drug-eluting stent (3.5 x 18 mm [place]). Discharge Data Consultations 12/02/19 10:48 Consult Cardiac Rehabilitation Routine Procedures Performed Operation Date: 12/02/19 08:00 Actual Procedures p Cath, Left with Cors and Vent - Jonathan Crump DO s Cineradiography w/Routine Exam - Jonathan Crump DO s Drug Eluting Stent SGl Vessel - Isma Abdalla MD s Fraction Flow [place] SGL Ves - Isma Abdalla MD Hospital Course (1) CAD (coronary artery disease), [place] coronary artery: Patient of [facility] and seen by Dr. Crump on day of discharge. 49-year-old patient admitted after elective cardiac catheterization revealed severe proximal LAD stenosis. Drug-eluting stent implanted without complication. Post procedure hospital course unremarkable. Recommend dual antiplatelet therapy for minimum of 6 months post percutaneous intervention. Discussed importance of continuing dual antiplatelet therapy uninterrupted. Patient voiced understanding. Titrate atorvastatin to 80 mg daily. Repeat fasting lipid panel and ALT in 6 weeks. Smoking cessation advised. Appropriate of sublingual nitroglycerin reviewed. All questions answered to patient's satisfaction. Will be discharged home today with routine cardiology follow-up in 2 to 4 weeks. Coding Level of Care Code None Diagnoses CAD (coronary artery disease), [place] coronary artery I25.110 [place] vs. transplanted heart: [place] heart Associated angina: with unstable angina
--- NOTE | 2019-12-19 10:47 | Discharge Summary ---
Date of Service December 19, 2019 Principal Diagnosis CAD s/p PCI Discharge Exam Constitutional well developed, well nourished and + obese ENMT Mallampati Class: III Respiratory normal respiratory effort, lungs clear to auscultation Cardiovascular RRR, no murmur, no edema Rate/Rhythm: regular rate and regular rhythm Heart Sounds: normal S1 and normal S2; no murmur and no cardiac rub Vessels: radial pulses present and ulnar pulses present; no JVD Extremities: no edema Gastrointestinal (Abdomen) Inspection/Auscultation: abdomen normal to inspection and normal bowel sounds; abdomen not distended Percussion/Palpation: abdomen soft; abdomen nontender, no guarding and abdomen not rigid Musculoskeletal no cyanosis or clubbing, extremities motor strength 5/5 Skin no rashes, warm and dry Neurologic CN's II-XI intact bilaterally and moves all extremities; no focal motor deficits Psychiatric A+Ox3, euthymic affect Discharge Data Allergies Allergy/AdvReac Type Severity Reaction Status Date / Time Penicillins Allergy Unknown Unknown Verified 12/02/19 07:10 Consultations 12/02/19 10:48 Consult Cardiac Rehabilitation Routine Procedures Performed Operation Date: 12/02/19 08:00 Actual Procedures p Cath, Left with Cors and Vent - Jonathan Crump DO s Cineradiography w/Routine Exam - Jonathan Crump DO s Drug Eluting Stent SGl Vessel - Isma Abdalla MD s Fraction Flow [place] SGL Ves - Isma Abdalla MD Ordered Studies 12/02/19 06:57 CL Cath Imgs for PACS use only Routine Hospital Course (1) CAD (coronary artery disease), [place] coronary artery: (2) Status post insertion of drug-eluting stent into left anterior descending (LAD) artery: (3) Dyslipidemia, goal LDL below 70: (4) Tobacco abuse: (5) HTN (hypertension): 49-year-old patient admitted after elective cardiac catheterization revealed severe proximal LAD stenosis. Drug-eluting stent implanted without complication. Recommend dual antiplatelet therapy for minimum of 6 months post percutaneous intervention. Discussed importance of continuing dual antiplatelet therapy uninterrupted. Patient voiced understanding. Titrate atorvastatin to 80 mg daily. Repeat fasting lipid panel and ALT in 6 weeks. Smoking cessation advised. Appropriate of sublingual nitroglycerin reviewed. All questions answered to patient's satisfaction. Will be discharged home today with routine cardiology follow-up in 2 to 4 weeks. Total Time Total Time Spent Total Time Spent (In Minutes): 30 Discharge Plan Discharge Items Patient Disposition: Home - Self-Care Reason For Visit: Chest Pain, Hypertension, Coronary Artery Disease Discharge Diagnosis: Status post cardiac catheterization demonstrating left anterior descending artery stenosis with implantation of drug-eluting stent. Activity: Per Instructions section Non-emergency contact: Steel Hanger Call non-emergency contact if: you have any medication questions Follow-up/Referrals: Hang Dickson DO [Primary Care Provider] - Diet: Heart Healthy Addtl Attending Provider Instructions: ACTIVITY RECOMMENDATIONS: It is common to feel weak and fatigue for a few days. * Do not drive or operate any motorized equipment for the next three days. * Limit stair usage (2 or 3 trips a day only) for the next three days. * Do not lift anything heavier than 10 pounds for the next three days. * Do not engage in vigorous exercise or any sports for the next five days. * You may shower the day after your procedure, but do not immerse the area for three days. Cleanse the site gently with soap and water. SPECIAL CARE INSTRUCTIONS: * You may replace the pressure dressing or band-aid the morning after the procedure. * After your procedure, it is normal to have a small bruise or small lump at the site. Examine your site daily for any change in the bruise or lump, redness, swelling, drainage or numbness. Notify your doctor if any change. BLEEDING: * If there is a small amount of bleeding at the site, lie down and apply firm pressure with a clean cloth for ten minutes. When the bleeding stops, lie quietly keeping the procedure limb straight for six hours. Notify your doctor as soon as possible. * If the bleeding does not stop after ten minutes or if there is a large amount of bleeding or spurting, call 911 immediately. Continue to lie down and hold firm pressure until help arrives. SKIN IRRITATION: * You may experience some redness and/or swelling in the area where radiation was administered. If any skin irritation occurs, please contact your family physician. FOLLOW UP VISIT: Keep any scheduled doctor appointments. Pending Studies at Discharge: No Stand-Alone Forms: [employer], Smoking Cessation Medications and DC Order Prescriptions: New atorvastatin 40 mg Tablet 80 mg PO HS Qty: 30 RF: 6 clopidogrel 75 mg Tablet 75 mg PO QAM Qty: 30 RF: 6 nitroglycerin 0.4 mg tablet, sublingual 0.4 mg sublingual DIRECTED 30 Days Qty: 1 RF: 6 Continued aspirin 81 mg Tablet,Chewable 81 mg PO QPM RF: 0 metoprolol succinate 50 mg Tablet Extended Release 24 Hr 50 mg PO QPM RF: 0 losartan 25 mg Tablet 25 mg PO HS RF: 0 Discontinued atorvastatin 40 mg Tablet 40 mg PO HS RF: 0 Discharge Orders: Discharge Order (Routine); Ordered 12/03/19 Ordered By: Jonathan Crump Admission Data Admit Date/Time: 12/02/19 10:45 Attending Provider: Jonathan Crump Admit Provider: Jonathan Crump Primary Care Provider: Hang Dickson Other Interventions: Discharge Summary Assessment (RN) Last Done: 12/03/19 10:06 DC Date/Time DO NOT enter until pt leaves facility: 12/03/19 11:26
== END 2019-12-03 11:26 | disposition home or self-care (01) ==
LOC: CC 06:33 → 2S 06:33

== ENCOUNTER 2019-12-31 10:36 | Observation (INO) ==
[2019-12-31 11:09] LABS: Basophils # (auto) 0.02 K/uL (0-0.2); Basophils % (auto) 0.2 %; Eosinophils # (auto) 0.18 K/uL (0-0.5); Eosinophils % (auto) 1.4 %; Hematocrit (blood only) 42.3 % (42-52); Hemoglobin 14.5 g/dL (14.0-18.0); Immature Granulocytes # (auto) 0.02 K/uL (0.00-0.02); Immature Granulocytes % (auto) 0.2 %; Lymphocytes # (auto) 2.47 K/uL (1.2-3.4); Lymphocytes % (auto) 19.6 %; Mean Corpuscular Hgb Conc 34.3 g/dL (32-36); Mean Corpuscular Volume 90.6 fL (80-100); Mean Platelet Volume 10.2 fL (7.4-10.4); Monocytes # (auto) 0.64 K/uL (0.11-0.59); Monocytes % (auto) 5.1 %; Neutrophils # (auto) 9.26 K/uL (1.4-6.5); Neutrophils % (auto) 73.5 %; Platelet Count 191 K/uL (130-400); RDW Coefficient of Variation 14.2 % (11.5-14.5); RDW Standard Deviation 46.9 fL (36.4-46.3); Red Blood Count 4.67 M/uL (4.7-6.1); White Blood Count 12.59 K/uL (4.8-10.8)
[2019-12-31 11:19] LABS: INR 1.1 (0.9-1.1); Partial Thromboplastin Ratio 1.1; Partial Thromboplastin Time 30.8 Seconds (21.0-31.0); Prothrombin Time 11.5 Seconds (9.0-12.0)
[2019-12-31 11:25] LABS: Alanine Aminotransferase 37 U/L (12-78); Albumin Level 3.5 gm/dl (3.4-5.0); Aspartate Aminotransferase 16 U/L (15-37); BUN Creatinine Ratio 8.7 (10-20); Blood Urea Nitrogen 9 mg/dl (7-18); Calcium 8.8 mg/dl (8.5-10.1); Carbon Dioxide 27 mmol/L (21-32); Chloride 107 mmol/L (98-107); Creatinine Clr Calc Pharmacy 116.1 ml/min; Est GFR (African American) 100.8; Est GFR (Non-African American) 86.9; Glucose 93 mg/dl (70-99); Sodium 139 mmol/L (136-145)
[2019-12-31 11:30] LABS: Albumin Globulin Ratio 0.8 (0.9-2); Alkaline Phosphatase 143 U/L (45-117); Bilirubin,Total 0.5 mg/dl (0.2-1); Globulin 4.1 gm/dl (2.5-4.0); Total Protein 7.6 gm/dl (6.4-8.2); Troponin I < 0.015 ng/ml (0-0.045)
--- NOTE | 2019-12-31 11:48 | XRay Report ---
XR chest 1V portable CLINICAL HISTORY: Atypical chest pain COMPARISON STUDY: 09/28/2019 FINDINGS: The heart is mildly enlarged. There is no failure. There is no focal pulmonary consolidatio n. There are no pleural effusions. There is minor basilar atelectasis.[ IMPRESSION: No active disease in the chest. ACT 112: Negative or not required by law. Electronically signed by: David Khalil M.D. 12/31/2019 11:47 AM
[2019-12-31 12:07] LABS: D Dimer 290 ug/L FEU (0-500)
[2019-12-31] MEDS ORDERED: HYDROmorphone INJ 0.5 MG/0.5 ML SYR IV STA (12:44)
--- NOTE | 2019-12-31 12:49 | Electrocardiogram Report ---
Test Reason : Blood Pressure : / mmHG Vent. Rate : 055 BPM Atrial Rate : 055 BPM P-R Int : 166 ms QRS Dur : 146 ms QT Int : 458 ms P-R-T Axes : 036 -07 -04 degrees QTc Int : 438 ms Sinus bradycardia Right bundle branch block Abnormal ECG When compared with ECG of 02-DEC-2019 11:01, No significant change was found Confirmed by Fredrick Talamantes ([id number]) on 12/31/2019 12:48:55 PM Referred By: ED Confirmed By:Fredrick Talamantes
--- NOTE | 2019-12-31 14:47 | History & Physical Report ---
Date of Service December 31, 2019 Assessment & Plan (1) Chest pain: (2) CAD (coronary artery disease): -Admit to telemetry -Patient presenting from home with reports of midsternal chest pain and associated shortness of breath -S/p ANTONIO to LAD on 12/02/2019 -Symptoms seem to be musculoskeletal in nature however patient reports symptoms are similar to when he presented for his stent -Patient reports medication compliance with aspirin and Plavix -Negative d-dimer -Cardiology consult, Dr. Hawkins notified -Continue to cycle cardiac enzymes, stress echo in a.m. if negative -Continue aspirin, Plavix, statin, beta-ebony, ARB (3) Hypertension: -BP controlled, continue metoprolol and losartan (4) DVT prophylaxis: -SQ Lovenox History of Present Illness Chief Complaint: Chest pain Primary Care Provider: Hang Dickson DO 49-year-old male who presents the ED for evaluation of chest pain. Patient is status post ANTONIO to LAD on 12/02/2019. Patient reports that a few days ago he had a brief episode of midsternal chest pain. Symptoms resolved quickly on their own. Yesterday, patient reports he developed some mild chest heaviness that was persistent throughout the day. He was awoken at 3:00 in the morning with severe chest heaviness and shortness of breath. Patient reports pain is worse with a deep breath and also with palpation over the sternum. There does not seem to be any exertional component to the pain. He reports associated nausea. Patient did not take any nitroglycerin at home. He presented to his PCPs office for evaluation. He was given a sublingual nitroglycerin and EMS was called and patient was brought to the ED for further evaluation. For EMS, patient received 2 sprays of nitroglycerin. He reports some initial relief of the discomfort however returned. In the ED, patient received Dilaudid 0.5 mg IV and reports significant improvement in his symptoms. Currently rates his pain #4/10. He denies lightheadedness, dizziness, diaphoresis, syncopal event. Reports a couple of episodes of diarrhea a few days ago but that has since resolved and denies abdominal pain and vomiting. No other recent illnesses, fevers, chills. He denies any urinary symptoms. In the ED, initial troponin is negative and EKG does not show any acute ST changes. Allergies Allergy/AdvReac Type Severity Reaction Status Date / Time Penicillins Allergy Unknown Unknown Verified 12/31/19 11:12 Home Medications Home Medications Medication Instructions Recorded Confirmed Type aspirin 81 mg PO QPM 07/27/18 12/31/19 History losartan 25 mg PO QAM 05/07/19 12/31/19 History metoprolol succinate 50 mg PO QAM 05/07/19 12/31/19 History atorvastatin 80 mg PO HS #30 tab 12/03/19 12/31/19 Rx clopidogrel 75 mg PO QAM #30 tab 12/03/19 12/31/19 Rx nitroglycerin 0.4 mg SUBLINGUAL DIRECTED PRN 12/31/19 12/31/19 History Past Med/Surg History Medical History CAD (coronary artery disease) 12/02/2019: ANTONIO to LAD Hyperlipidemia (Chronic) Hypertension (Acute 10/19/14) Status post insertion of drug-eluting stent into left anterior descending (LAD) artery Surgical History History of cardiac catheterization (Resolved) Family History Mother Heart disease Father Heart failure Social History Preferred Language: Serbian Communication Ability: Effective Biotechnologist Required: No Beliefs That Will Affect Care: None Current Living Situation: Alone Other Information That Helps Us Care for You: No Feels Safe at Home: Yes Safety Concerns: Feels Safe At This Time Smoking Status: Current every day smoker Tobacco Type: cigarettes ; Cigarettes Per Day: 2-3 ; Hx Alcohol Use: Yes Alcohol type: beer Alcohol Intake Frequency: Rarely Hx Substance Use: No Review of Systems Review of Systems: ROS per HPI, all other systems reviewed and negative Physical Exam Constitutional: WD/WN, vitals as above Eyes: PERRL, conjunctivae normal, anicteric sclerae ENMT: external ear and nose normal, oropharynx normal Respiratory: normal respiratory effort, lungs clear to auscultation Cardiovascular: Rate/Rhythm: regular rate and regular rhythm Vessels: normal peripheral pulses Extremities: no edema Chest (Breasts): Additional Comments: Midsternal chest tenderness to palpation Gastrointestinal (Abdomen): normal bowel sounds, soft, nontender, no hepatosplenomegaly Musculoskeletal: no cyanosis or clubbing, extremities motor strength 5/5 Skin: no rashes, warm and dry Neurologic: PERRL, EOMI, accommodation nl, no face palsy, no dysarthria Psychiatric: A+Ox3, euthymic affect Results & Data Vital Signs (Past 12 Hours) Vital Signs Temp Pulse Pulse Resp BP BP Pulse Ox 12/31/19 13:57 63 18 122/81 98 12/31/19 12:50 54 L 17 105/82 97 12/31/19 11:15 56 L 18 110/72 97 12/31/19 10:40 36.6 C 70 18 112/74 97 Laboratory Results Short CBC 12/31/19 Range/Units 10:47 WBC 12.59 H (4.8-10.8) K/uL Hgb 14.5 (14.0-18.0) g/dL Hct 42.3 (42-52) % Plt Count 191 (130-400) K/uL BMP 12/31/19 10:47 Sodium 139 Potassium 4.0 Chloride 107 Carbon Dioxide 27 BUN 9 Creatinine 1.01 Glucose 93 Calcium 8.8 Cardiac Enzymes 12/31/19 Range/Units 10:47 Troponin I < 0.015 (0-0.045) ng/ml Liver Function 12/31/19 Range/Units 10:47 Total Bilirubin 0.5 (0.2-1) mg/dl AST 16 (15-37) U/L ALT 37 (12-78) U/L Alkaline Phosphatase 143 H (45-117) U/L Albumin 3.5 (3.4-5.0) gm/dl Diagnostic Findings CXR IMPRESSION: No active disease in the chest. Code Status & VTE Plan VTE Prophylaxis Plan VTE Prophylaxis will be ordered: Yes Supervising Physician Co-Signing Physician Notes I saw this patient with the Nurse Practitioner, I participated in the history, physical, review of systems, and physical exam. I reviewed the medications with the patient and the Nurse Practitioner and helped reconcile the medications. I helped take a detailed family and social history as well. I formulated the assessment and plan personally with the Nurse Practitioner went over it with the patient. Physical Exam Gen-AAO x 3, NAD, Afebrile Head-NCAT, EOMI, PERRLA, Anicteric Sclera, No Posterior Pharyngeal Erythema Neck-Supple, No JVD, No Thyromegaly, No Masses, No LAD, No Bruits Lungs-Clear to Auscultation Bilaterally, No Rales, No Rhonchi, No Wheezing, No Crepitus Chest-No S4, +S1, +S2, No S3, No Murmurs, No Rubs, No Gallops, No Ectopy Abdomen-Soft, Bowel Sounds Present, Non Tender, Non Distended, No Hepatomegaly, No Splenomegaly, No Palpable Masses, No Rebound, No Rigidity, No Guarding Musculoskeletal-Full Range of Motion Bilaterally, No CVAT Extremities-No Cyanosis, No Clubbing, No Edema Nuero-Cranial Nerves II-XII grossly intact, Motor WNL, DTRs WNL, Strength WNL, Non Focal Psych-Normal Mood
[2019-12-31] MEDS ORDERED: ACETAMINOPHEN 325 MG TAB PO PRN (15:43)
[2019-12-31] MEDS: NITROGLYCERIN SL 0.4 MG/TAB TAB SL PRN ×3 (16:09→16:19)
[2019-12-31] MEDS ORDERED: NITROGLYCERIN 2% OINTMENT 30GM TUBE ONE ×2 (16:54→16:55)
--- NOTE | 2019-12-31 17:05 | Cardiology Consultation ---
Date of Consultation December 31, 2019 Assessment & Plan (1) Chest pain: (2) RBBB (right bundle branch block): (3) Hypertension: (4) Hyperlipidemia: Chest pain in setting of known coronary heart disease, drug-eluting stent to the proximal LAD November,. The patient's symptoms are atypical for angina, troponin negative x1, second troponin is currently pending. Stat EKG reveals ongoing right bundle branch block with resultant repolarization changes, and no ST segment elevation. At this time, I do not believe emergent cardiac catheterization is indicated. We will start nitroglycerin paste 1 inch every 6 hours, and start unfractionated heparin. Continue to trend cardiac enzymes I have also ordered a dose of 2 mg of morphine. We will keep patient n.p.o. after midnight and further recommendations be forthcoming when he is reassessed tomorrow. History of Present Illness Attending Physician: Thony Thornton DO History of Present Illness Lesley PrideJr is a 49 year old male seen in cardiology consultation per the request of BLANCA Cleary and Dr Thornton for the evaluation of chest pain. The patient has a history of coronary heart disease. His primary software development specialist is Dr. Crump of our practice. His recent cardiac history dates back to August 2019 when he presented as an acute visit to the outpatient clinic with complaint of chest discomfort. He went on to have a nuclear stress test with no inducible ischemia noted. He however had ongoing symptoms of chest pressure and heavy perspiration that would wake him up from sleeping. This prompted additional assessment of cardiac catheterization performed on 12/02/2019 at [facility] with findings of a lesion in the proximal left anterior descending coronary artery that was 60% angiographically, however on further assessment with FFR, it was found to be hemodynamically significant (FFR measurement of 0.69). The patient was discharged on appropriate medication therapy including aspirin, clopidogrel, metoprolol, losartan, and atorvastatin. He states he has been adherent with his medications and he has not missed any doses of his antiplatelet therapy. He has not had recurrence of his chest discomfort until this morning when he felt like he woke up with chest discomfort and pressure. His symptoms are atypical for angina, as they reportedly come on at rest rather than with exertion. I was paged to see him at the bedside at 1646 for an acute episode of chest pain. Prior to my arrival he had received a dose of sublingual nitroglycerin which caused resolution of his pain in the middle of his chest, but he noted ongoing severe "pressure "sensation that was starting to let up a little bit by the time I arrived. Repeat EKG performed at 1646 revealed sinus bradycardia 59 bpm with ongoing right bundle branch block, no ST segment elevation, and ongoing repolarization changes including T wave inversion in lead III, V2 and V3, consistent with underlying right bundle branch block unchanged compared to his prior EKG performed earlier today as well as the EKG performed the day of his cardiac stent last month. On very minimal palpation of his sternum, a significant discomfort was reproduced but this was different than the discomfort for which I was asked to see the patient. The patient describes a history of chronic low back pain with past spine surg flor, and he sleeps at a 45 degree angle in a hospital bed because of his back pain. Allergies Allergy/AdvReac Type Severity Reaction Status Date / Time Penicillins Allergy Unknown Unknown Verified 12/31/19 11:12 Home Medications Home Medications Medication Instructions Recorded Confirmed Type aspirin 81 mg PO QPM 07/27/18 12/31/19 History losartan 25 mg PO QAM 05/07/19 12/31/19 History metoprolol succinate 50 mg PO QAM 05/07/19 12/31/19 History atorvastatin 80 mg PO HS #30 tab 12/03/19 12/31/19 Rx clopidogrel 75 mg PO QAM #30 tab 12/03/19 12/31/19 Rx nitroglycerin 0.4 mg SUBLINGUAL DIRECTED PRN 12/31/19 12/31/19 History Patient History Medical History CAD (coronary artery disease) 12/02/2019: ANTONIO to LAD Hyperlipidemia (Chronic) Hypertension (Acute 10/19/14) Status post insertion of drug-eluting stent into left anterior descending (LAD) artery Surgical History History of cardiac catheterization (Resolved) Family History Mother Heart disease Father Heart failure Social History Preferred Language: Italian Communication Ability: Effective Tapering Machine Operator Required: No Beliefs That Will Affect Care: None Current Living Situation: Alone Other Information That Helps Us Care for You: No Feels Safe at Home: Yes Safety Concerns: Feels Safe At This Time Smoking Status: Current every day smoker Tobacco Type: cigarettes ; Cigarettes Per Day: 2-3 ; Hx Alcohol Use: Yes Alcohol type: beer Alcohol Intake Frequency: Rarely Hx Substance Use: No Physical Exam Physical Exam: Temp Pulse Resp BP Pulse Ox 36.5 C 57 L 16 121/69 97 12/31/19 15:29 12/31/19 16:59 12/31/19 16:59 12/31/19 16:59 12/31/19 16:59 Constitutional: WD/WN, vitals as above Respiratory: normal respiratory effort, lungs clear to auscultation Cardiovascular: RRR, no murmur, no edema Vessels: no JVD Gastrointestinal (Abdomen): normal bowel sounds, soft, nontender, no hepatosplenomegaly Neurologic: PERRL, EOMI, accommodation nl, no face palsy, no dysarthria Results & Data ([facility]) Vital Signs (Past 12 Hours) Vital Signs Temp Pulse Pulse Resp BP BP BP 12/31/19 16:59 57 L 16 121/69 12/31/19 16:27 57 L 20 109/60 12/31/19 15:29 36.5 C 50 L 16 119/73 12/31/19 15:09 59 L 18 148/87 H 12/31/19 13:57 63 18 122/81 12/31/19 12:50 54 L 17 105/82 12/31/19 11:15 56 L 18 110/72 12/31/19 10:40 36.6 C 70 18 112/74 Pulse Ox 12/31/19 16:59 97 12/31/19 16:27 98 12/31/19 15:29 98 12/31/19 15:09 98 12/31/19 13:57 98 12/31/19 12:50 97 12/31/19 11:15 97 12/31/19 10:40 97 Laboratory Results Cardiac Enzymes 12/31/19 Range/Units 10:47 AST 16 (15-37) U/L Troponin I < 0.015 (0-0.045) ng/ml Coagulation 12/31/19 Range/Units 10:47 PT 11.5 (9.0-12.0) Seconds APTT 30.8 (21.0-31.0) Seconds CBC 12/31/19 Range/Units 10:47 WBC 12.59 H (4.8-10.8) K/uL RBC 4.67 L (4.7-6.1) M/uL Hgb 14.5 (14.0-18.0) g/dL Hct 42.3 (42-52) % Plt Count 191 (130-400) K/uL Neut # (Auto) 9.26 H (1.4-6.5) K/uL Lymph # (Auto) 2.47 (1.2-3.4) K/uL Day # (Auto) 0.64 H (0.11-0.59) K/uL Eos # (Auto) 0.18 (0-0.5) K/uL Baso # (Auto) 0.02 (0-0.2) K/uL Comprehensive Metabolic Panel 12/31/19 Range/Units 10:47 Sodium 139 (136-145) mmol/L Potassium 4.0 (3.5-5.1) mmol/L Chloride 107 (98-107) mmol/L Carbon Dioxide 27 (21-32) mmol/L BUN 9 (7-18) mg/dl Creatinine 1.01 (0.6-1.4) mg/dl Glucose 93 (70-99) mg/dl Calcium 8.8 (8.5-10.1) mg/dl AST 16 (15-37) U/L ALT 37 (12-78) U/L Alkaline Phosphatase 143 H (45-117) U/L Total Protein 7.6 (6.4-8.2) gm/dl Albumin 3.5 (3.4-5.0) gm/dl Intake and Output 12/31/19 12/31/19 12/31/19 06:59 14:59 22:59 Other: Weight 112 kg 112.5 kg Patient Weight 01/01/20 06:59 Weight 112.5 kg
[2019-12-31] MEDS ORDERED: MoRPHine SULFATE 2 MG/ML CARP IV STA (17:06)
--- NOTE | 2019-12-31 17:09 | Emergency Department Note ---
Entered by Jelly Pineda acting as a scribe for Elio Samuels MD ED Provider Note CHIEF COMPLAINT: Chest pain HISTORY OF PRESENT ILLNESS: The patient is a 49 year old male who presents to the Emergency Room via EMS with complaints of persistent chest pain starting at 0300 today. The patient reports that he woke up with 0300 chest pain. He describes this pain as a heaviness. He states that he was short of breath with this chest pain. He explains that deep breathing and applying pressure to his chest worsens his pain. He notes that he was seen in his [facility] PCP office [employer] and was given Nitroglycerin that improved his chest pain. He states that prior to the Nitroglycerin his chest pain was 6/10 and after it was 3/10. He adds that he received 2 Nitroglycerin and a Baby Aspirin [employer] from EMS. The patient reports that he has experienced this pain before about 1 month ago. He states that at that time he had to get a cardiac catheterization. He notes that during his chest pain his heart rate dropped to 44 bpm. Pt denies LOC, headache, fevers, chills, diaphoresis, visual changes, nausea, vomiting, abdominal pain, back pain, melena, hematochezia, urinary symptoms, numbness, weakness, lymphadenopathy, rash, or other complaints. REVIEW OF SYSTEMS: See HPI for pertinent positives and negatives. A total of ten systems were reviewed and were otherwise negative. PMHx/PSHx: CAD, HTN, Heart disease, Cardiac catheterization. SOCIAL HISTORY: Patient lives at home. PHYSICAL EXAM: GENERAL: Awake, alert, well-appearing, in no distress HENT: Normocephalic, atraumatic. Oropharynx unremarkable. EYES: PERRL. Normal conjunctiva. Sclera non-icteric. NECK: Inspection normal. Non-tender. Supple. No nuchal rigidity. FROM. No masses. RESPIRATORY: Clear to auscultation. No wheezes. No rales. Normal respiratory effort. CARDIAC: Normal rate. Normal rhythm. No murmurs. No rubs. Extremities warm and well perfused. Pulses equal. No JVD. GI: Soft, non-distended. No tenderness to palpation. No rebound or guarding. No masses. RECTAL: Deferred. MUSCULOSKELETAL: Atraumatic. Sternal tenderness. The back is symmetrical on inspection without obvious abnormality. There is no CVA tenderness to palpation. No joint edema. LOWER EXTREMITIES: Calves are equal size bilaterally and non-tender. No edema. No discoloration. NEURO: Normal sensorium. No sensory or motor deficits noted. SKIN: No rash or jaundice noted. EMERGENCY DEPARTMENT COURSE: 1241: Past medical records reviewed. The patient was evaluated in room A12B, and a complete history and physical examination were performed. 1247: EMR reviewed. The patient had a cardiac stent (proximal LAD) placed on 12/02/2019. 1328: I discussed the patients case with Dr. Hawkins Primary Teacher. 1325: I updated the patient at this time. 1342: I discussed the patients case with Yolanda Glover PA-C. Dr. Jaylin Terry hospitalist will evaluate the patient for further management. MEDICAL DECISION MAKING: Prior records/ancillary studies reviewed. Triage Nursing notes reviewed and agree them. Additional history obtained from the family. The patient's history was concerning for chest pain. Differential diagnosis: Etiologies such as cardiac ischemia, aortic dissection, pulmonary embolism, pneumonia, pneumothorax, musculoskeletal, infections, pericarditis, myocarditis, esophageal rupture, gastrointestinal, as well as others were entertained. Physical examination: As above. ER treatment provided: IV Dilaudid On reassessment the patient felt better. Diagnostic interpretation by me: The electrocardiogram was negative for pathologic change. The labs revealed mild leukocytosis on CBC. Chemistry panel was unremarkable. D-dimer negative. Troponin negative x1. Imaging studies: Chest x-ray negative for acute process. Consultation: A consultation was made with [facility], Dr. Hawkins. Given the patient's recent cardiac stenting and his chest pain and leukocytosis he felt to be most appropriate for the patient to be in the hospital under observation. A consultation was placed with the hospitalist. The case was discussed and diagnostics were reviewed. The patient was evaluated in the ER for further treatment. IMPRESSION: Substernal chest pain, Leukocytosis PLAN: Being Evaluated by Hospitalist The scribe's documentation has been prepared under my direction and personally reviewed by me in its entirety. I confirm that the note above accurately reflects all work, treatment, procedures, and medical decision making performed by me. 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 Beliefs That Will Affect Care: None Current Living Situation: Alone Other Information That Helps Us Care for You: No Feels Safe at Home: Yes Safety Concerns: Feels Safe At This Time Smoking Status: Current every day smoker Tobacco Type: cigarettes ; Cigarettes Per Day: 2-3 ; Hx Alcohol Use: Yes Alcohol type: beer Alcohol Intake Frequency: Rarely Hx Substance Use: No Results & Data Vital Signs Vital Signs - 24 hr 12/31/19 10:40 12/31/19 11:15 12/31/19 12:50 Temperature 36.6 C Temperature Source Oral Pulse Rate 70 Pulse Rate [Apical] 56 L 54 L Pulse Rhythm Regular Pulse Rhythm [Apical] Regular Pulse Strength [Apical] Respiratory Rate 18 18 17 Respiratory Effort / Characteristics Non-Labored Non-Labored Spontaneous Respiratory Depth Normal Normal Respiratory Pattern Regular Blood Pressure 112/74 Blood Pressure [Right Arm] 110/72 105/82 Blood Pressure Mean 86 Blood Pressure Mean [Right Arm] 84 89 Blood Pressure Position [Right Arm] Lying Pulse Oximetry 97 97 97 Oxygen Delivery Method Room Air Room Air Room Air Oxygen Flow Rate 0 Sepsis Recent Fever Within 48 Hours No Sepsis New/Unexplained Change in Mental Status No Sepsis Action Taken by Nursing No Action Required 12/31/19 13:57 Temperature Temperature Source Pulse Rate Pulse Rate [Apical] 63 Pulse Rhythm Pulse Rhythm [Apical] Regular Pulse Strength [Apical] Normal Respiratory Rate 18 Respiratory Effort / Characteristics Non-Labored Spontaneous Respiratory Depth Normal Respiratory Pattern Regular Blood Pressure Blood Pressure [Right Arm] 122/81 Blood Pressure Mean Blood Pressure Mean [Right Arm] 94 Blood Pressure Position [Right Arm] Pulse Oximetry 98 Oxygen Delivery Method Room Air Oxygen Flow Rate Sepsis Recent Fever Within 48 Hours Sepsis New/Unexplained Change in Mental Status Sepsis Action Taken by Group Home Medications Current Medication List: was personally reviewed by me Laboratory Data Attestation: I reviewed the patient's lab results. Result diagrams: 12/31/19 10:47 12/31/19 10:47 Lab Results 12/31/19 12/31/19 12/31/19 Range/Units 10:47 10:47 10:47 WBC 12.59 H (4.8-10.8) K/uL RBC 4.67 L (4.7-6.1) M/uL Hgb 14.5 (14.0-18.0) g/dL Hct 42.3 (42-52) % MCV 90.6 (80-100) fL MCH 31.0 (25-34) pg MCHC 34.3 (32-36) g/dL RDW Std Deviation 46.9 H (36.4-46.3) fL RDW Coeff of [place] 14.2 (11.5-14.5) % Plt Count 191 (130-400) K/uL MPV 10.2 (7.4-10.4) fL Immature Gran % (Auto) 0.2 % Neut % (Auto) 73.5 % Lymph % (Auto) 19.6 % [place] % (Auto) 5.1 % Eos % (Auto) 1.4 % Baso % (Auto) 0.2 % Immature Gran # (Auto) 0.02 (0.00-0.02) K/uL Neut # (Auto) 9.26 H (1.4-6.5) K/uL Lymph # (Auto) 2.47 (1.2-3.4) K/uL [place] # (Auto) 0.64 H (0.11-0.59) K/uL Eos # (Auto) 0.18 (0-0.5) K/uL Baso # (Auto) 0.02 (0-0.2) K/uL PT 11.5 (9.0-12.0) Seconds INR 1.1 (0.9-1.1) APTT 30.8 (21.0-31.0) Seconds PTT Ratio 1.1 D-Dimer (0-500) ug/L FEU Sodium 139 (136-145) mmol/L Potassium 4.0 (3.5-5.1) mmol/L Chloride 107 (98-107) mmol/L Carbon Dioxide 27 (21-32) mmol/L Anion Gap 5.0 (3-11) BUN 9 (7-18) mg/dl Creatinine 1.01 (0.6-1.4) mg/dl Est Cr Clr Drug Dosing 116.1 ml/min Est GFR ( Amer) 100.8 Est GFR (Non-Af Amer) 86.9 BUN/Creatinine Ratio 8.7 L (10-20) Glucose 93 (70-99) mg/dl Calcium 8.8 (8.5-10.1) mg/dl Total Bilirubin 0.5 (0.2-1) mg/dl AST 16 (15-37) U/L ALT 37 (12-78) U/L Alkaline Phosphatase 143 H (45-117) U/L Troponin I < 0.015 (0-0.045) ng/ml Total Protein 7.6 (6.4-8.2) gm/dl Albumin 3.5 (3.4-5.0) gm/dl Globulin 4.1 H (2.5-4.0) gm/dl Albumin/Globulin Ratio 0.8 L (0.9-2) 12/31/19 Range/Units 10:47 WBC (4.8-10.8) K/uL RBC (4.7-6.1) M/uL Hgb (14.0-18.0) g/dL Hct (42-52) % MCV (80-100) fL MCH (25-34) pg MCHC (32-36) g/dL RDW Std Deviation (36.4-46.3) fL RDW Coeff of [place] (11.5-14.5) % Plt Count (130-400) K/uL MPV (7.4-10.4) fL Immature Gran % (Auto) % Neut % (Auto) % Lymph % (Auto) % [place] % (Auto) % Eos % (Auto) % Baso % (Auto) % Immature Gran # (Auto) (0.00-0.02) K/uL Neut # (Auto) (1.4-6.5) K/uL Lymph # (Auto) (1.2-3.4) K/uL [place] # (Auto) (0.11-0.59) K/uL Eos # (Auto) (0-0.5) K/uL Baso # (Auto) (0-0.2) K/uL PT (9.0-12.0) Seconds INR (0.9-1.1) APTT (21.0-31.0) Seconds PTT Ratio D-Dimer 290 (0-500) ug/L FEU Sodium (136-145) mmol/L Potassium (3.5-5.1) mmol/L Chloride (98-107) mmol/L Carbon Dioxide (21-32) mmol/L Anion Gap (3-11) BUN (7-18) mg/dl Creatinine (0.6-1.4) mg/dl Est Cr Clr Drug Dosing ml/min Est GFR ( Amer) Est GFR (Non-Af Amer) BUN/Creatinine Ratio (10-20) Glucose (70-99) mg/dl Calcium (8.5-10.1) mg/dl Total Bilirubin (0.2-1) mg/dl AST (15-37) U/L ALT (12-78) U/L Alkaline Phosphatase (45-117) U/L Troponin I (0-0.045) ng/ml Total Protein (6.4-8.2) gm/dl Albumin (3.4-5.0) gm/dl Globulin (2.5-4.0) gm/dl Albumin/Globulin Ratio (0.9-2) Administered Medications Nitroglycerin (Nitrostat) 0.4 mg SL UD PRN PRN Reason: Chest Pain Stop: 01/30/20 15:42 Last Admin: 12/31/19 16:19 Dose: 0.4 mg Documented by: [id number] Admin: 12/31/19 16:12 Dose: 0.4 mg Documented by: [id number] Admin: 12/31/19 16:09 Dose: 0.4 mg Documented by: [id number] Discontinued Medications Hydromorphone HCl (Dilaudid) 0.5 mg IV NOW STA Stop: 12/31/19 12:45 Last Admin: 12/31/19 12:57 Dose: 0.5 mg Documented by: [id number] Imaging Data Radiologist's Impression: Radiology results as stated below per my review and the radiologist's interpretation: XR chest 1V portable CLINICAL HISTORY: Atypical chest pain COMPARISON STUDY: 09/28/2019 FINDINGS: The heart is mildly enlarged. There is no failure. There is no focal pulmonary consolidation. There are no pleural effusions. There is minor basilar atelectasis.[ IMPRESSION: No active disease in the chest. ACT 112: Negative or not required by law. Electronically signed by: David Khalil M.D. 12/31/2019 11:47 AM ECG Data Attestation: I personally reviewed and interpreted this ECG as follows: Indication: + chest pain Rate (beats per minute): 55 Rhythm: sinus bradycardia ECG [place]: + Normal ECG ST segments: no ST depression and no ST elevation ECG Findings: no PACs and no PVCs Comparison ECG Date: from (12/31/2019 at 1044) Change: no significant change Blood Pressure Blood Pressure Findings: Elevated blood pressure Blood Pressure Disposition: further management by hospitalist Discharge Plan Visit Data *Final* Discharge Date/Time: 12/31/19 15:09 Chief Complaint: Chest Pain ED Provider: Elio Samuels Discharge Problem: Substernal chest pain, Leukocytosis Patient Disposition: Admitted As Inpatient Discharge Instructions Interventions: ED Discharge Assessment Last Done: 12/31/19 15:09 The scribe's documentation has been prepared under my direction and personally reviewed by me in its entirety. I confirm that the note above accurately reflects all work, treatment, procedures, and medical decision making performed by me.
[2019-12-31] MEDS ORDERED: HEPARIN SODIUM/DEXTROSE 25,000 UNITS/500 ML BAG IV SCH (17:30)
[2019-12-31] MEDS ORDERED: HEPARIN IV BOLUS 7,000 UNITS in SYRINGE 0 ML IV ONE (17:30)
[2019-12-31] MEDS: NITROGLYCERIN 2% OINTMENT 30GM TUBE EXT SCH (17:40)
[2019-12-31] MEDS ORDERED: ENOXAPARIN INJ 40 MG/0.4 ML SYR SQ SCH (21:00)
[2019-12-31] MEDS ORDERED: ASPIRIN 81 MG ECTAB PO SCH (21:00)
[2019-12-31] MEDS ORDERED: ATORVASTATIN 40 MG TAB PO SCH (21:00)
[2020-01-01] MEDS: NITROGLYCERIN 2% OINTMENT 30GM TUBE EXT SCH ×2 (00:03→04:30)
[2020-01-01] MEDS: MoRPHine SULFATE 4 MG/ML 1 ML CARP\\VIAL IV PRN ×2 (00:04→04:17)
[2020-01-01 00:57] LABS: Partial Thromboplastin Time 108.7 Seconds (21.0-31.0)
[2020-01-01 06:44] LABS: Hematocrit (blood only) 40.8 % (42-52); Hemoglobin 13.5 g/dL (14.0-18.0); Mean Corpuscular Hemoglobin 30.9 pg (25-34); Mean Corpuscular Hgb Conc 33.1 g/dL (32-36); Mean Corpuscular Volume 93.4 fL (80-100); Mean Platelet Volume 10.2 fL (7.4-10.4); Platelet Count 154 K/uL (130-400); RDW Coefficient of Variation 14.3 % (11.5-14.5); RDW Standard Deviation 48.4 fL (36.4-46.3); Red Blood Count 4.37 M/uL (4.7-6.1); White Blood Count 7.79 K/uL (4.8-10.8)
[2020-01-01 07:17] LABS: BUN Creatinine Ratio 12.1 (10-20); Blood Urea Nitrogen 12 mg/dl (7-18); Calcium 8.8 mg/dl (8.5-10.1); Carbon Dioxide 29 mmol/L (21-32); Chloride 107 mmol/L (98-107); Creatinine Clr Calc Pharmacy 116.2 ml/min; Est GFR (African American) 100.8; Est GFR (Non-African American) 86.9; Glucose 84 mg/dl (70-99); Potassium 4.2 mmol/L (3.5-5.1); Sodium 139 mmol/L (136-145)
[2020-01-01 07:22] LABS: Troponin I < 0.015 ng/ml (0-0.045)
[2020-01-01 08:31] LABS: Partial Thromboplastin Ratio 2.4
[2020-01-01 08:34] LABS: Partial Thromboplastin Time 65.2 Seconds (21.0-31.0)
[2020-01-01] MEDS ORDERED: LOSARTAN POTASSIUM 25 MG TAB PO SCH (09:00)
[2020-01-01] MEDS ORDERED: METOPROLOL SUCC 50MG EXT REL TAB PO SCH (09:00)
[2020-01-01] MEDS ORDERED: CLOPIDOGREL BISULFATE 75 MG TAB PO SCH (09:00)
[2020-01-01] MEDS ORDERED: predniSONE 20 MG TAB PO SCH (10:00)
[2020-01-01] MEDS ORDERED: PANTOprazole 40 MG TAB PO SCH (10:00)
--- NOTE | 2020-01-01 10:05 | Cardiology Progress Note ---
Date of Service January 01, 2020 Assessment & Plan (1) Chest pain: Reproducible chest wall pain. DC nitropaste and UF heparin. Not candidate for NSAIDs. Start prednisone 40 mg x 5 days, with protonix for GI prophylaxis. 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 Check limited resting echo to exclude occult pericardial effusion or new WMA. If echo is OK , I do not think further ischemic work up will be necessary having already been reassured with serial EKG and troponin levels that have been stable. Subjective Patient feeling better this am. Chest pain reproducible with palpation of chest wall adjacent to the left lower sternal wall and with deep breath. At present, the patient does not feel like this is angina. Telemetry reveals SR , EKG reveals SR with RBBB unchanged compared to prior . Review of Systems Review of Systems: All systems reviewed & are unremarkable except as noted in HPI & below Physical Exam Physical Exam: Temp Pulse Resp BP Pulse Ox 36.6 C 55 L 18 123/82 95 01/01/20 07:31 01/01/20 08:00 01/01/20 07:31 01/01/20 07:31 01/01/20 07:31 Constitutional: WD/WN, vitals as above Respiratory: normal respiratory effort, lungs clear to auscultation Cardiovascular: RRR, no murmur, no edema Gastrointestinal (Abdomen): normal bowel sounds, soft, nontender, no hepatosplenomegaly Musculoskeletal: chest wall pain reproduced with minimal palpation Neurologic: PERRL, EOMI, accommodation nl, no face palsy, no dysarthria Results & Data Vital Signs (Past 12 Hours) Vital Signs Temp Pulse Pulse Resp BP BP Pulse Ox 01/01/20 08:00 55 L 01/01/20 07:31 36.6 C 59 L 18 123/82 95 01/01/20 03:58 36.6 C 62 18 104/75 95 01/01/20 00:01 36.7 C 55 L 17 126/76 97 01/01/20 00:00 50 L Laboratory Results Cardiac Enzymes 12/31/19 12/31/19 12/31/19 Range/Units 10:47 16:24 22:23 AST 16 (15-37) U/L Troponin I < 0.015 < 0.015 < 0.015 (0-0.045) ng/ml 01/01/20 Range/Units 06:23 AST (15-37) U/L Troponin I < 0.015 (0-0.045) ng/ml Coagulation 12/31/19 01/01/20 01/01/20 Range/Units 10:47 00:12 07:56 PT 11.5 (9.0-12.0) Seconds APTT 30.8 108.7 H* 65.2 H* (21.0-31.0) Seconds CBC 12/31/19 01/01/20 Range/Units 10:47 06:23 WBC 12.59 H 7.79 (4.8-10.8) K/uL RBC 4.67 L 4.37 L (4.7-6.1) M/uL Hgb 14.5 13.5 L (14.0-18.0) g/dL Hct 42.3 40.8 L (42-52) % Plt Count 191 154 (130-400) K/uL Neut # (Auto) 9.26 H (1.4-6.5) K/uL Lymph # (Auto) 2.47 (1.2-3.4) K/uL [place] # (Auto) 0.64 H (0.11-0.59) K/uL Eos # (Auto) 0.18 (0-0.5) K/uL Baso # (Auto) 0.02 (0-0.2) K/uL Comprehensive Metabolic Panel 12/31/19 01/01/20 Range/Units 10:47 06:23 Sodium 139 139 (136-145) mmol/L Potassium 4.0 4.2 (3.5-5.1) mmol/L Chloride 107 107 (98-107) mmol/L Carbon Dioxide 27 29 (21-32) mmol/L BUN 9 12 (7-18) mg/dl Creatinine 1.01 1.01 (0.6-1.4) mg/dl Glucose 93 84 (70-99) mg/dl Calcium 8.8 8.8 (8.5-10.1) mg/dl AST 16 (15-37) U/L ALT 37 (12-78) U/L Alkaline Phosphatase 143 H (45-117) U/L Total Protein 7.6 (6.4-8.2) gm/dl Albumin 3.5 (3.4-5.0) gm/dl Intake and Output 12/31/19 01/01/20 01/01/20 22:59 06:59 14:59 Intake Total 800 / 1182.933 382.933 / 1182.933 62.833 / 62.833 Output Total 400 / 1300 900 / 1300 Balance 400 / -117.067 -517.067 / -117.067 62.833 / 62.833 Intake: IV 382.933 / 382.933 62.833 / 62.833 HEPARIN SODIUM/DEXTROSE 25,000 382.933 / 382.933 62.833 / 62.833 units In 500 ml @ 1,450 UNITS/ HR 29 mls/hr IV .[id number] [facility] Rx #:[id number] Oral 800 / 800 0 / 800 Output: Urine 400 / 1300 900 / 1300 Other: Other Intake Source NPO Weight 112.5 kg 112.3 kg
--- NOTE | 2020-01-01 12:06 | Communication Note ---
Date of Service: January 01, 2020 Pt reassessed while he was eating lunch and felt well. Echo reviewed: A focussed study was performed per provider request for assessment of LV wall m otion and to exclude pericardial effusions. Sinus bradycardia was present during the echocardiogarm. No LV segmental wall motion abnormalities. The LV Ejection Fraction = 60-65%. There is no pericardial effusion. Plan: stable for discharge with medication plan as outlined in my progress note earlier today.
--- NOTE | 2020-01-01 12:13 | Hospitalist Progress Note ---
Date of Service January 01, 2020 Assessment & Plan (1) Chest pain: Present on admission with Atypical chest pain on presentation. Reproducible chest wall pain Troponin x 5 negative EKG showed no acute ischemic changes Cardiology on board Limited echo showed no LV segmental wall motion abnormality. No pericardial effusion. Ejection fraction 60 to 65% Case discussed with cardiology recommended to start prednisone 40 mg x 5 days, with protonix for GI prophylaxis. Continue THERAPIST OCCUPATIONAL cardiac medications including ASA and clopidogrel. Ok from cardiology standpoint to discharge home today (2) CAD (coronary artery disease): S/p ANTONIO to LAD on 12/02/2019tStart prednisone 40 mg x 5 days, with protonix for GI prophylaxis. Continue THERAPIST OCCUPATIONAL cardiac medications including ASA and clopidogrel and statin Stable (3) Hypertension: BP controlled Continue metoprolol and losartan (4) DVT prophylaxis: SQ Lovenox Disposition Discharge home today Follow up with your PCP Dr. Aguilar on 01/05 @ 11:05 AM Admission and Anticipated Discharge Date Admission Date: December 31, 2019 Subjective Pt was seen and examined Sitting at the edge of the bed with no distress Pt said that he feels fine He admitted that he has been sleeping more in his right side due to his back pain When I applied pressure on his chest more toward the right side, pt screamed in pain He said that he does not have any chest pain with exertion Currently only has reproducible chest pain Denies any SOB, palpitation, dizziness and SOB Physical Exam Physical Exam: General- No acute distress Head- atraumatic Eyes- PERRL, EOMI, ENT- oropharynx clear Neck- supple, no JVD Lungs- clear to auscultation Heart- regular rhythm; no murmur Abdomen- normal bowel sounds, soft, nontender Extremities- no calf tenderness Neuro- alert, oriented x 3; PERRL, EOMI; no facial palsy; no dysarthria Skin- warm & dry Results & Data ([facility]) Vital Signs (Past 12 Hours) Vital Signs Temp Pulse Pulse Resp BP Pulse Ox 01/01/20 11:08 36.6 C 61 18 138/90 97 01/01/20 08:00 55 L 01/01/20 07:31 36.6 C 59 L 18 123/82 95 01/01/20 03:58 36.6 C 62 18 104/75 95
--- NOTE | 2020-01-01 13:12 | Electrocardiogram Report ---
Test Reason : Blood Pressure : / mmHG Vent. Rate : 058 BPM Atrial Rate : 058 BPM P-R Int : 172 ms QRS Dur : 140 ms QT Int : 466 ms P-R-T Axes : 042 -16 -01 degrees QTc Int : 457 ms Sinus bradycardia Right bundle branch block Abnormal ECG When compared with ECG of 31-DEC-2019 10:40, No significant change was found Confirmed by Fredrick Talamantes ([id number]) on 01/01/2020 1:12:37 PM Referred By: REFERRED SELF Confirmed By:Fredrick Talamantes
--- NOTE | 2020-01-01 14:24 | Electrocardiogram Report ---
Test Reason : Blood Pressure : / mmHG Vent. Rate : 054 BPM Atrial Rate : 054 BPM P-R Int : 170 ms QRS Dur : 148 ms QT Int : 476 ms P-R-T Axes : 056 001 -01 degrees QTc Int : 451 ms Sinus bradycardia Right bundle branch block Abnormal ECG When compared with ECG of 31-DEC-2019 16:17, (unconfirmed) No significant change was found Confirmed by Fredrick Talamantes ([id number]) on 01/01/2020 2:24:02 PM Referred By: REFERRED SELF Confirmed By:Fredrick Talamantes
--- NOTE | 2020-01-02 08:07 | Discharge Summary ---
Date of Service January 01, 2020 Admission HPI Per Admitting Provider 49-year-old male who presents the ED for evaluation of chest pain. Patient is status post ANTONIO to LAD on 12/02/2019. Patient reports that a few days ago he had a brief episode of midsternal chest pain. Symptoms resolved quickly on their own. Yesterday, patient reports he developed some mild chest heaviness that was persistent throughout the day. He was awoken at 3:00 in the morning with severe chest heaviness and shortness of breath. Patient reports pain is worse with a deep breath and also with palpation over the sternum. There does not seem to be any exertional component to the pain. He reports associated nausea. Patient did not take any nitroglycerin at home. He presented to his PCPs office for evaluation. He was given a sublingual nitroglycerin and EMS was called and patient was brought to the ED for further evaluation. For EMS, patient received 2 sprays of nitroglycerin. He reports some initial relief of the discomfort however returned. In the ED, patient received Dilaudid 0.5 mg IV and reports significant improvement in his symptoms. Currently rates his pain #4/10. He denies lightheadedness, dizziness, diaphoresis, syncopal event. Reports a couple of episodes of diarrhea a few days ago but that has since resolved and denies abdominal pain and vomiting. No other recent illnesses, fevers, chills. He denies any urinary symptoms. In the ED, initial troponin is negative and EKG does not show any acute ST changes. Admission Exam Per Admitting Provider Constitutional: WD/WN, vitals as above Eyes: PERRL, conjunctivae normal, anicteric sclerae ENMT: external ear and nose normal, oropharynx normal Respiratory: normal respiratory effort, lungs clear to auscultation Cardiovascular: regular rate and regular rhythm Vessels: normal peripheral pulses Extremities: no edema Chest (Breasts):Midsternal chest tenderness to palpation Gastrointestinal:normal bowel sounds, soft, nontender, no hepatosplenomegaly Musculoskeletal: no cyanosis or clubbing, extremities motor strength 5/5 Skin: no rashes, warm and dry Neurologic: PERRL, EOMI, accommodation nl, no face palsy, no dysarthria Psychiatric: A+Ox3, euthymic affect Principal Diagnosis Chest pain CAD (coronary artery disease) Hypertension Discharge Exam General- No acute distress Head- atraumatic Eyes- PERRL, EOMI, ENT- oropharynx clear Neck- supple, no JVD Lungs- clear to auscultation Heart- regular rhythm; no murmur Abdomen- normal bowel sounds, soft, nontender Extremities- no calf tenderness Neuro- alert, oriented x 3; PERRL, EOMI; no facial palsy; no dysarthria Skin- warm & dry Discharge Data Allergies Allergy/AdvReac Type Severity Reaction Status Date / Time Penicillins Allergy Unknown Unknown Verified 12/31/19 11:12 Consultations 12/31/19 13:43 ED Decision to Admit Stat 12/31/19 15:43 Consult Cardiology Routine Ordered Studies XR chest 1V portable CLINICAL HISTORY: Atypical chest pain COMPARISON STUDY: 09/28/2019 FINDINGS: The heart is mildly enlarged. There is no failure. There is no focal pulmonary consolidation. There are no pleural effusions. There is minor basilar atelectasis.[ IMPRESSION: No active disease in the chest. ACT 112: Negative or not required by law. Electronically signed by: David Khalil M.D. 12/31/2019 11:47 AM Dictated: 12/31/19 1146 Transcribed: 12/31/19 1146 Hospital Course (1) Chest pain: Present on admission with Atypical chest pain on presentation. Reproducible chest wall pain Troponin x 5 negative EKG showed no acute ischemic changes Cardiology on board Limited echo showed no LV segmental wall motion abnormality. No pericardial effusion. Ejection fraction 60 to 65% Case discussed with cardiology recommended to start prednisone 40 mg x 5 days, with protonix for GI prophylaxis. 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 Ok from cardiology standpoint to discharge home today (2) CAD (coronary artery disease): S/p ANTONIO to LAD on 12/02/2019tStart prednisone 40 mg x 5 days, with protonix for GI prophylaxis. Continue [employer] cardiac medications including ASA and clopidogrel and statin Stable (3) Hypertension: BP controlled Continue metoprolol and losartan (4) DVT prophylaxis: SQ Lovenox Disposition Discharge home today Follow up with your PCP Dr. Aguilar on 01/05 @ 11:05 AM Total Time Total Time Spent Total Time Spent (In Minutes): 35 minutes Total Time Includes: Examination of the Patient, Discharge Planning, Medication Reconciliation, Communication With Other Providers and Other Discharge Plan Discharge Items Patient Disposition: Home - Self-Care Reason For Visit: CHEST PAIN Discharge Diagnosis: Chest pain CAD (coronary artery disease) Hypertension Activity: Resume your previous activity Non-emergency contact: Primary Care Provider Call non-emergency contact if: you have any medication questions Follow-up/Referrals: Hang Dickson DO [Primary Care Provider] - Diet: Heart Healthy Addtl Attending Provider Instructions: Follow up with your primary care provider Dr. Dickson on 01/05 @ 11:05 AM Follow up with your cardiology Seek medical attention if chest pain worsening Do not drive or operate any machine after taking the tramadol Hold the tramadol if you become drowsy and lethargy Pending Studies at Discharge: No Stand-Alone Forms: My [facility], Smoking Cessation Medications and DC Order Prescriptions: New prednisone 20 mg Tablet 40 mg PO DAILY 4 Days Qty: 8 RF: 0 pantoprazole 40 mg Tablet,Delayed Release (Dr/Ec) 40 mg PO QAM 30 Days Qty: 30 RF: 0 tramadol 50 mg tablet 50 mg PO Q12H PRN (Reason: pain) Qty: 10 RF: 0 Continued aspirin 81 mg Tablet,Chewable 81 mg PO QPM RF: 0 metoprolol succinate 50 mg Tablet Extended Release 24 Hr 50 mg PO QAM RF: 0 losartan 25 mg Tablet 25 mg PO QAM RF: 0 atorvastatin 40 mg Tablet 80 mg PO HS Qty: 30 RF: 6 clopidogrel 75 mg Tablet 75 mg PO QAM Qty: 30 RF: 6 nitroglycerin 0.4 mg tablet, sublingual 0.4 mg sublingual DIRECTED PRN (Reason: Chest Pain) RF: 0 Discharge Orders: Discharge Order (Routine); Ordered 01/01/20 Ordered By: Tejas Ponce Admission Data Admit Date/Time: 12/31/19 14:18 Attending Provider: Tejas Ponce Admit Provider: Thony Thornton Primary Care Provider: Hang Dickson Other Providers: Thony Thornton ; Matteo Hawkins Other Interventions: Discharge Summary Assessment (RN) Last Done: 01/01/20 12:41 DC Date/Time DO NOT enter until pt leaves facility: 01/01/20 14:50
== END 2020-01-01 14:50 | disposition home or self-care (01) ==
LOC: 2E 10:36 → ED 10:36 → SUATTDRO 14:18 → 2E 15:09

== ENCOUNTER 2020-02-02 23:22 | Observation (INO) ==
[2020-02-02] MEDS ORDERED: SODIUM CHLORIDE 0.9% 1000ML 1,000 ML IV SCH (23:45)
[2020-02-02 23:55] LABS: Basophils # (auto) 0.03 K/uL (0-0.2); Basophils % (auto) 0.3 %; Eosinophils % (auto) 1.9 %; Hematocrit (blood only) 43.2 % (42-52); Hemoglobin 14.2 g/dL (14.0-18.0); Immature Granulocytes # (auto) 0.02 K/uL (0.00-0.02); Immature Granulocytes % (auto) 0.2 %; Lymphocytes # (auto) 2.84 K/uL (1.2-3.4); Lymphocytes % (auto) 26.8 %; Mean Corpuscular Hemoglobin 30.8 pg (25-34); Mean Corpuscular Hgb Conc 32.9 g/dL (32-36); Mean Corpuscular Volume 93.7 fL (80-100); Mean Platelet Volume 10.3 fL (7.4-10.4); Monocytes # (auto) 0.57 K/uL (0.11-0.59); Monocytes % (auto) 5.4 %; Neutrophils # (auto) 6.94 K/uL (1.4-6.5); Neutrophils % (auto) 65.4 %; Platelet Count 187 K/uL (130-400); RDW Coefficient of Variation 14.5 % (11.5-14.5); RDW Standard Deviation 49.6 fL (36.4-46.3); Red Blood Count 4.61 M/uL (4.7-6.1)
[2020-02-03 00:09] LABS: INR 1.1 (0.9-1.1); Partial Thromboplastin Ratio 1.1; Partial Thromboplastin Time 31.3 Seconds (21.0-31.0); Prothrombin Time 11.9 Seconds (9.0-12.0)
--- NOTE | 2020-02-03 00:11 | Emergency Department Note ---
ED Provider Note Provider: Tyron Carroll MD DATE OF SERVICE: 02/02/2020 CHIEF COMPLAINT: Chest pain, shortness of breath HISTORY OF PRESENT ILLNESS: Patient is a 49-year-old gentleman history of CAD with stent in November of this year presenting today with several complaints. States that over the past week he has had intermittent chest pain centrally nonreproducible with some associated shortness of breath. Denies any abdominal symptoms. States about a week ago there was a 20-minute period where he had numbness and loss of motor function of his left upper extremity and a little bit of tingling in his left upper leg. This then resolved and has not reoccurred. Patient states compliant with home medications including aspirin and Plavix. States been using nitroglycerin fairly regularly for some chest discomfort with minimal improvement. States this feels similar to when he had a cardiac stent. Patient also complains of a bit of intermittent headache. No other trauma. Denies fevers but does endorse some chills. REVIEW OF SYSTEMS: A total of 10 review of systems was obtained and negative except as stated above in the HPI. PAST MEDICAL HISTORY: As noted above MEDICATIONS: Aspirin, Plavix, Lipitor, losartan, metoprolol SOCIAL HISTORY: Patient does use tobacco. PHYSICAL EXAM: GENERAL: alert and oriented in no acute distress on stretcher, mildly anxious Head: normocephalic and atraumatic EYES: No injection, discharge or icterus. PERRL, EOMI. ENT: Mucous membranes pink and moist. LUNGS: Airway patent. No retractions. Breath sounds clear with good air entry bilaterally. HEART: Regular rate and rhythm. No chest wall tenderness ABDOMEN: Soft and non-tender, without guarding or rebound. SKIN: Acyanotic, warm, dry, without rashes EXTREMITIES: Without swelling, tenderness or deformity NEUROLOGICAL: No focal deficits. No aphasia. No facial droop or slurred speech. Normal strength and tone in the extremities. Sensation to gross touch normal. EKG: Normal sinus rhythm rate of 64. No PVCs. Right bundle branch block is pre sent. No ST segment elevation or depression. [place] is normal. CONTINUOUS CARDIAC MONITORING: was ordered and showed a heart rate of bpm in Patient's hypertension was referred to the hospitalist HOSPITAL COURSE: 2341 Patient was first seen and H&P performed. Patient reassessed and updated. Patient was Differential includes Cardiac ischemia, aortic dissection, pulmonary embolism, pneumothorax, pneumonia, pericarditis, myocarditis, esophageal rupture, GERD, cholecystitis, pancreatitis, musculoskeletal, neurological/CVA/SAH, infectious as well as other pathologies. Patient's laboratory studies and imaging reviewed. 1 view AP chest x-ray per my interpretation shows no evidence of pneumothorax. No evidence of pneumonia. Normal cardiac silhouette. No acute bony injury noted. IMPRESSION/MEDICAL DECISION MAKING: Patient presents with recent cardiac stent compliant with medications per his report complaint of ongoing chest pain. Seen here about a month ago and some concern for pleurisy and sent home on steroids. No longer having reducible chest pain. EKG without significant findings. Troponin was sent. Doubt this represents PE based upon PERC criteria. Patient's complaint of left arm numbness earlier in the week transiently with some weakness here is a bit of an odd constellation to self resolved. Patient does seem mildly anxious. CT head complete without acute findings. Doubt this represents meningitis or subarachnoid hemorrhage. Doubt pneumonia. Influenza testing was negative. Unsure this represents TIA or stroke given the odd nature associated with it. Patient again has intact neuro exam at this time. Doubt vascular occlusion given warm nature and 2+ L radial pulse. Troponin and EKG without again acute findings. TSH within normal limits. Given some Toradol if it is inflammatory in nature (recurrent pleurisy). Given the fact that he is using nitroglycerin multiple times a week with continued chest discomfort with some concerns about his ability go home at this time. Discussed with him and the hospitalist for continued observation here overnight. DIAGNOSIS: Chest pain, transient left arm numbness/weakness DISPOSITION: Being evaluated by the hospital for further management Stat Rad Preliminary Report CT HEAD: No acute intracranial hemorrhage, extra-axial fluid collection, edema, mass effect, or acute cortical infarct. No fracture. Radiologist: Elver Caruso MD Study ready at 00:36 and initial results transmitted at 00:38 Impression & Plan Chest pain, Left arm weakness, Headache Past Med/Surg History Social History Preferred Language: Setswana Communication Ability: Effective Senior Inspector Required: No Beliefs That Will Affect Care: None Current Living Situation: Alone Feels Safe at Home: Yes Smoking Status: Never smoker Tobacco Type: cigarettes ; Cigarettes Per Day: 2-3 ; Hx Alcohol Use: Yes Alcohol type: beer Alcohol Intake Frequency: Rarely Hx Substance Use: No Results & Data Vital Signs Vital Signs - 24 hr 02/02/20 23:24 02/02/20 23:40 02/03/20 00:41 Temperature 36.5 C Temperature Source Oral Pulse Rate 72 Pulse Rate [Bilateral] 67 Pulse Rhythm Regular Pulse Rhythm [Bilateral] Regular Pulse Strength Normal Pulse Strength [Bilateral] Normal Respiratory Rate 20 18 Respiratory Effort / Characteristics Non-Labored Spontaneous Non-Labored Spontaneous Non-Labored Spontaneous Respiratory Depth Normal Normal Normal Respiratory Pattern Regular Regular Blood Pressure 134/84 Blood Pressure [Right Arm] 126/90 Blood Pressure Mean 100 Blood Pressure Mean [Right Arm] 102 Blood Pressure Position Sitting Blood Pressure Position [Right Arm] Lying Pulse Oximetry 98 96 Oxygen Delivery Method Room Air Room Air Sepsis Recent Fever Within 48 Hours No Sepsis Action Taken by Nursing No Action Required Laboratory Data Result diagrams: 02/02/20 23:35 02/02/20 23:35 Lab Results 02/02/20 02/02/20 02/02/20 Range/Units 23:35 23:35 23:35 WBC 10.60 (4.8-10.8) K/uL RBC 4.61 L (4.7-6.1) M/uL Hgb 14.2 (14.0-18.0) g/dL Hct 43.2 (42-52) % MCV 93.7 (80-100) fL MCH 30.8 (25-34) pg MCHC 32.9 (32-36) g/dL RDW Std Deviation 49.6 H (36.4-46.3) fL RDW Coeff of [place] 14.5 (11.5-14.5) % Plt Count 187 (130-400) K/uL MPV 10.3 (7.4-10.4) fL Immature Gran % (Auto) 0.2 % Neut % (Auto) 65.4 % Lymph % (Auto) 26.8 % [place] % (Auto) 5.4 % Eos % (Auto) 1.9 % Baso % (Auto) 0.3 % Immature Gran # (Auto) 0.02 (0.00-0.02) K/uL Neut # (Auto) 6.94 H (1.4-6.5) K/uL Lymph # (Auto) 2.84 (1.2-3.4) K/uL [place] # (Auto) 0.57 (0.11-0.59) K/uL Eos # (Auto) 0.20 (0-0.5) K/uL Baso # (Auto) 0.03 (0-0.2) K/uL PT 11.9 (9.0-12.0) Seconds INR 1.1 (0.9-1.1) APTT 31.3 H (21.0-31.0) Seconds PTT Ratio 1.1 Sodium 139 (136-145) mmol/L Potassium 3.8 (3.5-5.1) mmol/L Chloride 107 (98-107) mmol/L Carbon Dioxide 29 (21-32) mmol/L Anion Gap 3.0 (3-11) BUN 9 (7-18) mg/dl Creatinine 1.05 (0.6-1.4) mg/dl Est Cr Clr Drug Dosing 43.9 ml/min Est GFR ( Amer) 96.1 Est GFR (Non-Af Amer) 83.0 BUN/Creatinine Ratio 8.6 L (10-20) Glucose 107 H (70-99) mg/dl Calcium 8.3 L (8.5-10.1) mg/dl Magnesium 2.0 (1.8-2.4) mg/dl Total Bilirubin 0.3 (0.2-1) mg/dl AST 14 L (15-37) U/L ALT 36 (12-78) U/L Alkaline Phosphatase 133 H (45-117) U/L Troponin I < 0.015 (0-0.045) ng/ml Total Protein 7.4 (6.4-8.2) gm/dl Albumin 3.4 (3.4-5.0) gm/dl Globulin 4.0 (2.5-4.0) gm/dl Albumin/Globulin Ratio 0.9 (0.9-2) Lipase 84 (73-393) U/L TSH 1.700 (0.300-4.500) uIu/ml Influenza Type A (PCR) (Neg) Influenza Type B (PCR) (Neg) 02/02/20 Range/Units 23:50 WBC (4.8-10.8) K/uL RBC (4.7-6.1) M/uL Hgb (14.0-18.0) g/dL Hct (42-52) % MCV (80-100) fL MCH (25-34) pg MCHC (32-36) g/dL RDW Std Deviation (36.4-46.3) fL RDW Coeff of [place] (11.5-14.5) % Plt Count (130-400) K/uL MPV (7.4-10.4) fL Immature Gran % (Auto) % Neut % (Auto) % Lymph % (Auto) % [place] % (Auto) % Eos % (Auto) % Baso % (Auto) % Immature Gran # (Auto) (0.00-0.02) K/uL Neut # (Auto) (1.4-6.5) K/uL Lymph # (Auto) (1.2-3.4) K/uL [place] # (Auto) (0.11-0.59) K/uL Eos # (Auto) (0-0.5) K/uL Baso # (Auto) (0-0.2) K/uL PT (9.0-12.0) Seconds INR (0.9-1.1) APTT (21.0-31.0) Seconds PTT Ratio Sodium (136-145) mmol/L Potassium (3.5-5.1) mmol/L Chloride (98-107) mmol/L Carbon Dioxide (21-32) mmol/L Anion Gap (3-11) BUN (7-18) mg/dl Creatinine (0.6-1.4) mg/dl Est Cr Clr Drug Dosing ml/min Est GFR ( Amer) Est GFR (Non-Af Amer) BUN/Creatinine Ratio (10-20) Glucose (70-99) mg/dl Calcium (8.5-10.1) mg/dl Magnesium (1.8-2.4) mg/dl Total Bilirubin (0.2-1) mg/dl AST (15-37) U/L ALT (12-78) U/L Alkaline Phosphatase (45-117) U/L Troponin I (0-0.045) ng/ml Total Protein (6.4-8.2) gm/dl Albumin (3.4-5.0) gm/dl Globulin (2.5-4.0) gm/dl Albumin/Globulin Ratio (0.9-2) Lipase (73-393) U/L TSH (0.300-4.500) uIu/ml Influenza Type A (PCR) Neg for Influ A (Neg) Influenza Type B (PCR) Neg for Influ B (Neg) Administered Medications Discontinued Medications Sodium Chloride (Nss 1000ml) 1,000 mls @ 999 mls/hr IV .Q1H1M TAMICA Stop: 02/03/20 00:45 Last Infusion: 02/03/20 00:40 Dose: 0 mls/hr Documented by: [id number] Admin: 02/02/20 23:48 Dose: 999 mls/hr Documented by: [id number] Ketorolac Tromethamine (Toradol) 15 mg IV NOW STA Stop: 02/03/20 00:44 Last Admin: 02/03/20 00:57 Dose: 15 mg Documented by: [id number] Discharge Plan Visit Data Chief Complaint: Chest Pain Stated Complaint: CHEST PAIN HEADACHE TROUBLE BREATHING ED Provider: Tyron Carroll Discharge Problem: Chest pain, Left arm weakness, Headache Patient Disposition: Being Evaluated by Hospitalist Prescriptions Prescriptions: No Action aspirin 81 mg Tablet,Chewable 81 mg PO QPM RF: 0 metoprolol succinate 50 mg Tablet Extended Release 24 Hr 50 mg PO QAM RF: 0 losartan 25 mg Tablet 25 mg PO QAM RF: 0 clopidogrel 75 mg Tablet 75 mg PO QAM Qty: 30 RF: 6 nitroglycerin 0.4 mg tablet, sublingual 0.4 mg sublingual DIRECTED PRN (Reason: Chest Pain) RF: 0 tramadol 50 mg tablet 50 mg PO Q12H PRN (Reason: pain) Qty: 10 RF: 0 atorvastatin 80 mg tablet 80 mg PO DAILY RF: 0 pantoprazole 40 mg tablet,delayed release (DR/EC) 40 mg PO DAILY RF: 0 Referrals Referrals: Hang Dickson DO [Primary Care Provider] -
[2020-02-03 00:13] LABS: Alanine Aminotransferase 36 U/L (12-78); Albumin Level 3.4 gm/dl (3.4-5.0); Aspartate Aminotransferase 14 U/L (15-37); BUN Creatinine Ratio 8.6 (10-20); Blood Urea Nitrogen 9 mg/dl (7-18); Calcium 8.3 mg/dl (8.5-10.1); Carbon Dioxide 29 mmol/L (21-32); Chloride 107 mmol/L (98-107); Creatinine Clr Calc Pharmacy 43.9 ml/min; Est GFR (African American) 96.1; Glucose 107 mg/dl (70-99); Lipase 84 U/L (73-393); Potassium 3.8 mmol/L (3.5-5.1); Sodium 139 mmol/L (136-145)
[2020-02-03 00:24] LABS: Albumin Globulin Ratio 0.9 (0.9-2); Alkaline Phosphatase 133 U/L (45-117); Bilirubin,Total 0.3 mg/dl (0.2-1); Total Protein 7.4 gm/dl (6.4-8.2); Troponin I < 0.015 ng/ml (0-0.045)
[2020-02-03 00:40] LABS: Influenza A virus by PCR Neg for Influ A (Neg); Influenza B virus by PCR Neg for Influ B (Neg)
[2020-02-03] MEDS ORDERED: KETOROLAC TROMETHAMINE 15 MG/ML VIAL IV STA (00:43)
[2020-02-03] MEDS ORDERED: CALCIUM GLUCONATE 10% 1,000 MG in SODIUM CHLORIDE 0.9% 50 ML IV STA (01:16)
[2020-02-03] MEDS ORDERED: NITROGLYCERIN SL 0.4 MG/TAB TAB SL STA (01:40)
--- NOTE | 2020-02-03 01:41 | History & Physical Report ---
Date of Service February 03, 2020 Assessment & Plan (1) Chest pain: Possible unstable angina, history CAD status post stent Persistent symptoms following recent confinement No response to outpatient steroid Rx hypertension, stable hyperlipidemia on statin Rx ongoing tobacco abuse Prediabetes, recent outpatient hemoglobin A1c of 5.9 from last year OBS PCU Continue antiplatelet Rx, beta-ebony, and statin meds, nitro as needed Follow troponin N.p.o. until patient evaluated by Cardiology in a.m. in anticipation of testing Nicotine patch PRN DVT prophylaxis per Lovenox subcu Full code Text document was generated using yoone voice recognition software. It may contain grammatical or spelling errors. Kindly contact undersigned for clarification of any documentation item in question. History of Present Illness Chief Complaint: Chest pain Primary Care Provider: Hang Dickson DO History obtained from patient and records. Medical history significant for CAD status post stent, hypertension, hyperlipidemia, ongoing tobacco abuse, prediabetes, arthritis. Recent confinement last month for atypical chest pain. Possible pleurisy as per patient. Patient discharged on prednisone course. Recurrent pleuritic left-sided chest discomfort symptoms with shortness of breath relieved by nitro. This week patient noted worsening almost daily chest discomfort symptoms. Dry cough symptoms and chills at home as per patient No known sick contacts. Transient episode of left-sided weakness and numbness at home last week. Patient compliant with home meds. Patient at the ER for persistent chest discomfort/heaviness. Medical History as above Surgical History : Back surgeries, wrist surgery, foot surgery Family History : Heart disease Personal/Social history : Half pack daily, no EtOH intake, disabled Allergies Allergy/AdvReac Type Severity Reaction Status Date / Time Penicillins Allergy Unknown Unknown Verified 02/02/20 23:44 Home Medications Home Medications Medication Instructions Recorded Confirmed Type aspirin 81 mg PO QPM 07/27/18 02/02/20 History losartan 25 mg PO QAM 05/07/19 02/02/20 History metoprolol succinate 50 mg PO QAM 05/07/19 02/02/20 History clopidogrel 75 mg PO QAM #30 tab 12/03/19 02/02/20 Rx nitroglycerin 0.4 mg SUBLINGUAL DIRECTED PRN 12/31/19 02/02/20 History tramadol 50 mg PO Q12H PRN #10 tab 01/01/20 02/02/20 Rx atorvastatin 80 mg PO DAILY 02/02/20 02/02/20 History pantoprazole 40 mg PO DAILY 02/02/20 02/02/20 History Past Med/Surg History Social History Preferred Language: Nicaraguan Communication Ability: Effective Economics 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: No Beliefs That Will Affect Care: None Current Living Situation: Alone Feels Safe at Home: Yes Smoking Status: Current every day smoker Tobacco Type: cigarettes ; Cigarettes Per Day: 5 ; Hx Alcohol Use: Yes Alcohol type: beer Alcohol Intake Frequency: Rarely Hx Substance Use: No Review of Systems Review of Systems: As per HPI, all 10 systems reviewed, all other ROS negative Physical Exam Physical Exam: GENERAL: Comfortable, slightly anxious, obese, no respiratory distress SKIN: Normal color, warm HEENT: [place] palpebral conjunctivae, no ptosis, dry buccal mucosa NECK : Supple, short neck, no tenderness CHEST : CTA, chest wall tenderness left HEART : RRR, no obvious murmurs ABDOMEN: Some distention, nontender EXTREMITIES : No LE swelling/tenderness, no other conspicuous deformities noted NEUROLOGIC : Coherent, no facial asymmetry, no other gross focality Results & Data Vital Signs (Past 12 Hours) Vital Signs Temp Pulse Pulse Resp BP BP Pulse Ox 02/03/20 00:41 67 18 126/90 96 02/02/20 23:24 36.5 C 72 20 134/84 98 Laboratory Results Laboratory Results WBC 10.60 K/uL (4.8-10.8) 02/02/20 23:35 RBC 4.61 M/uL (4.7-6.1) L 02/02/20 23:35 Hgb 14.2 g/dL (14.0-18.0) 02/02/20 23:35 Hct 43.2 % (42-52) 02/02/20 23:35 MCV 93.7 fL (80-100) 02/02/20 23:35 MCH 30.8 pg (25-34) 02/02/20 23:35 MCHC 32.9 g/dL (32-36) 02/02/20 23:35 RDW Std Deviation 49.6 fL (36.4-46.3) H 02/02/20 23:35 RDW Coeff of [place]annessa 14.5 % (11.5-14.5) 02/02/20 23:35 Plt Count 187 K/uL (130-400) 02/02/20 23:35 MPV 10.3 fL (7.4-10.4) 02/02/20 23:35 Immature Gran % (Auto) 0.2 % 02/02/20 23:35 Neut % (Auto) 65.4 % 02/02/20 23:35 Lymph % (Auto) 26.8 % 02/02/20 23:35 [place] % (Auto) 5.4 % 02/02/20 23:35 Eos % (Auto) 1.9 % 02/02/20 23:35 Baso % (Auto) 0.3 % 02/02/20 23:35 Immature Gran # (Auto) 0.02 K/uL (0.00-0.02) 02/02/20 23:35 Neut # (Auto) 6.94 K/uL (1.4-6.5) H 02/02/20 23:35 Lymph # (Auto) 2.84 K/uL (1.2-3.4) 02/02/20 23:35 [place] # (Auto) 0.57 K/uL (0.11-0.59) 02/02/20 23:35 Eos # (Auto) 0.20 K/uL (0-0.5) 02/02/20 23:35 Baso # (Auto) 0.03 K/uL (0-0.2) 02/02/20 23:35 PT 11.9 Seconds (9.0-12.0) 02/02/20 23:35 INR 1.1 (0.9-1.1) 02/02/20 23:35 APTT 31.3 Seconds (21.0-31.0) H 02/02/20 23:35 PTT Ratio 1.1 02/02/20 23:35 Sodium 139 mmol/L (136-145) 02/02/20 23:35 Potassium 3.8 mmol/L (3.5-5.1) 02/02/20 23:35 Chloride 107 mmol/L (98-107) 02/02/20 23:35 Carbon Dioxide 29 mmol/L (21-32) 02/02/20 23:35 Anion Gap 3.0 (3-11) 02/02/20 23:35 BUN 9 mg/dl (7-18) 02/02/20 23:35 Creatinine 1.05 mg/dl (0.6-1.4) 02/02/20 23:35 Est Cr Clr Drug Dosing 43.9 ml/min 02/02/20 23:35 Est GFR ( Amer) 96.1 02/02/20 23:35 Est GFR (Non-Af Amer) 83.0 02/02/20 23:35 BUN/Creatinine Ratio 8.6 (10-20) L 02/02/20 23:35 Glucose 107 mg/dl (70-99) H 02/02/20 23:35 Calcium 8.3 mg/dl (8.5-10.1) L 02/02/20 23:35 Magnesium 2.0 mg/dl (1.8-2.4) 02/02/20 23:35 Total Bilirubin 0.3 mg/dl (0.2-1) 02/02/20 23:35 AST 14 U/L (15-37) L 02/02/20 23:35 ALT 36 U/L (12-78) 02/02/20 23:35 Alkaline Phosphatase 133 U/L (45-117) H 02/02/20 23:35 Troponin I < 0.015 ng/ml (0-0.045) 02/02/20 23:35 Total Protein 7.4 gm/dl (6.4-8.2) 02/02/20 23:35 Albumin 3.4 gm/dl (3.4-5.0) 02/02/20 23:35 Globulin 4.0 gm/dl (2.5-4.0) 02/02/20 23:35 Albumin/Globulin Ratio 0.9 (0.9-2) 02/02/20 23:35 Lipase 84 U/L (73-393) 02/02/20 23:35 TSH 1.700 uIu/ml (0.300-4.500) 02/02/20 23:35 Influenza Type A (PCR) Neg for Influ A (Neg) 02/02/20 23:50 Influenza Type B (PCR) Neg for Influ B (Neg) 02/02/20 23:50 Diagnostic Findings Chest x-ray as per my interpretation : cardiomegaly, atelectasis EKG as per my interpretation : Rate 65, NSR, LAD, LAFB, RBBB, no ischemia (1) Chest pain Chest pain type: chest pain on breathing Qualified Code(s): R07.1 - Chest pain on breathing
[2020-02-03] MEDS ORDERED: ACETAMINOPHEN 325 MG TAB PO PRN (02:36)
[2020-02-03] MEDS ORDERED: PROMETHAZINE HCL 12.5 MG in SODIUM CHLORIDE 0.9% 50 ML IV PRN (02:36)
[2020-02-03] MEDS ORDERED: NITROGLYCERIN SL 0.4 MG/TAB TAB SL PRN (02:36)
[2020-02-03] MEDS ORDERED: LORazepam 0.25 MG/0.5 ML VIAL IV PRN (02:36)
[2020-02-03] MEDS: MoRPHine SULFATE 4 MG/ML 1 ML CARP\\VIAL IV PRN ×2 (02:55→22:05)
[2020-02-03] MEDS ORDERED: LACTATED RINGER'S 1,000 ML IV SCH (03:00)
[2020-02-03] MEDS: LOSARTAN POTASSIUM 25 MG TAB PO SCH (03:26)
[2020-02-03] MEDS: TRAMADOL HCL 50 MG TABLET PO PRN ×2 (05:22→11:35)
[2020-02-03 05:56] LABS: Basophils # (auto) 0.02 K/uL (0-0.2); Basophils % (auto) 0.2 %; Eosinophils # (auto) 0.18 K/uL (0-0.5); Eosinophils % (auto) 1.9 %; Hemoglobin 13.3 g/dL (14.0-18.0); Immature Granulocytes # (auto) 0.02 K/uL (0.00-0.02); Immature Granulocytes % (auto) 0.2 %; Lymphocytes # (auto) 3.24 K/uL (1.2-3.4); Lymphocytes % (auto) 33.4 %; Mean Corpuscular Hemoglobin 31.1 pg (25-34); Mean Corpuscular Hgb Conc 32.4 g/dL (32-36); Mean Platelet Volume 10.5 fL (7.4-10.4); Monocytes # (auto) 0.69 K/uL (0.11-0.59); Monocytes % (auto) 7.1 %; Neutrophils # (auto) 5.56 K/uL (1.4-6.5); Neutrophils % (auto) 57.2 %; Platelet Count 169 K/uL (130-400); RDW Coefficient of Variation 14.6 % (11.5-14.5); Red Blood Count 4.27 M/uL (4.7-6.1); White Blood Count 9.71 K/uL (4.8-10.8)
[2020-02-03 06:07] LABS: Partial Thromboplastin Ratio 1.2; Partial Thromboplastin Time 32.7 Seconds (21.0-31.0)
[2020-02-03 06:32] LABS: BUN Creatinine Ratio 8.7 (10-20); Blood Urea Nitrogen 8 mg/dl (7-18); C Reactive Protein 0.62 mg/dl (0-0.29); Calcium 8.6 mg/dl (8.5-10.1); Carbon Dioxide 29 mmol/L (21-32); Chloride 110 mmol/L (98-107); Cholesterol 136 mg/dl (0-200); Creatinine Clr Calc Pharmacy 128.8 ml/min; Est GFR (African American) 111.3; Est GFR (Non-African American) 96.1; Glucose 86 mg/dl (70-99); Potassium 4.1 mmol/L (3.5-5.1); Sodium 142 mmol/L (136-145); Triglycerides 182 mg/dl (0-150); VLDL Cholesterol 36 mg/dl
--- NOTE | 2020-02-03 06:32 | CT Scan Report ---
CT head/brain wo con CT DOSE: 614.27 mGy.cm HISTORY: Mental status change transient L arm numbness TECHNIQUE: Multiaxial CT images of the head were performed without the use of intravenous contrast. A dose lowering technique was utilized adhering to the principles of ALARA. Comparison: None. Findings: The paranasal sinuses and mastoid air cells are clear. The calvarium and skull base are int act. The ventricles and sulci are within normal limits. There is no mass, hematoma, midline shift, or acute infarct. Impression: No acute intracranial abnormality. ACT 112: Negative or not required by law. The above report was generated using voice recognition software. It may contain grammatical, syntax or spelling errors. Electronically signed by: Rich Davidson M.D. 02/03/2020 6:30 AM
[2020-02-03 06:36] LABS: Chol HDL Ratio 5; HDL Cholesterol 25 mg/dl; LDL Cholesterol Calculated 75 mg/dl; Troponin I < 0.015 ng/ml (0-0.045)
--- NOTE | 2020-02-03 07:03 | XRay Report ---
XR chest 1V portable CLINICAL HISTORY: Chest Pain COMPARISON STUDY: Chest CT November 21, 2013. Chest radiograph December 31, 2019. FINDINGS: Lung volumes are normal. Lungs are clear. There is no pneumothorax or pleural effusion. Mil d cardiomegaly is noted. Mediastinal contours are normal. There is no evidence for pulmonary edema. IMPRESSION: No acute cardiopulmonary findings. ACT 112: Negative or not required by law. Electronically signed by: Edwar Martinez M.D. 02/03/2020 7:02 AM
[2020-02-03 07:04] LABS: Lyme Ab IgG w/WB Rflx Negative (Negative); Lyme Ab IgM w/WB Rflx Negative (Negative)
[2020-02-03] MEDS ORDERED: LOSARTAN POTASSIUM 25 MG TAB PO SCH (09:00)
[2020-02-03] MEDS: CLOPIDOGREL BISULFATE 75 MG TAB PO SCH (09:19)
[2020-02-03] MEDS: PANTOprazole 40 MG TAB PO SCH (09:19)
[2020-02-03] MEDS: ATORVASTATIN 40 MG TAB PO SCH (09:19)
[2020-02-03] MEDS: METOPROLOL SUCC 50MG EXT REL TAB PO SCH (09:19)
[2020-02-03] MEDS: ENOXAPARIN INJ 40 MG/0.4 ML SYR SQ SCH (09:19)
--- NOTE | 2020-02-03 09:25 | Cardiology Consultation ---
Date of Consultation February 03, 2020 Assessment & Plan (1) Chest pain: (2) CAD (coronary artery disease): (3) RBBB (right bundle branch block): 49-year-old patient with recent LAD intervention presents with atypical/pleuritic chest discomfort which is reproducible with palpation on examination. Patient also reporting subjective chills and fevers with nonproductive cough over the past 3 to 4 days. ECG without ischemic changes and cardiac enzymes are undetectable. No evidence of acute coronary syndrome at this time. Recommend limited 2D transthoracic echocardiogram to assess wall motion exclude pericardial effusion. I ordered a D dimer given the pleuritic nature of his chest pain. Lyme screening and influenza titers are negative. Continue supportive care. Further recommendations pending review of echocardiogram. Patient is not a candidate for long-term NSAIDs due to CAD and antiplatelet therapy. Consider corticosteroid taper for treatment of pleuritic chest pain pending review of echocardiogram and d-dimer. Dual antiplatelet therapy must be continued for minimum of 6 months post percutaneous intervention. History of Present Illness Reason for Consultation: chest pain LAD PCI 12/02/2019 Requesting Physician: Dr. Lisa Attending Physician: Tejas Ponce MD History of Present Illness 49-year-old male presents emergency department with chest discomfort. Patient describes chest pain beginning approximately 1 week ago. Sharp and stabbing discomfort which is intermittent over the past 5 to 7 days. Developed cough approximately 3 days ago with worsening discomfort. Transient left arm numbness reported 7 days ago. Denies orthopnea or PND. Reports dyspnea on exertion. No edema, weight gain, or claudication. Reports subjective chills and fevers at home. Denies any sick contacts or recent travel. Patient treated with Toradol and tramadol in the emergency department. ECG without ischemic changes. Cardiac enzymes are negative x2 sets. Recent cardiac history significant for cardiac catheterization 12/02/2019 with 60% LAD lesion found to be hemodynamically significant per FFR. A drug-eluting stent was implanted without complication. Allergies Allergy/AdvReac Type Severity Reaction Status Date / Time Penicillins Allergy Unknown Unknown Verified 02/02/20 23:44 Home Medications Home Medications Medication Instructions Recorded Confirmed Type aspirin 81 mg PO QPM 07/27/18 02/02/20 History losartan 25 mg PO QAM 05/07/19 02/02/20 History metoprolol succinate 50 mg PO QAM 05/07/19 02/02/20 History clopidogrel 75 mg PO QAM #30 tab 12/03/19 02/02/20 Rx nitroglycerin 0.4 mg SUBLINGUAL DIRECTED PRN 12/31/19 02/02/20 History tramadol 50 mg PO Q12H PRN #10 tab 01/01/20 02/02/20 Rx atorvastatin 80 mg PO DAILY 02/02/20 02/02/20 History pantoprazole 40 mg PO DAILY 02/02/20 02/02/20 History Patient History Medical History CAD (coronary artery disease) 12/02/2019: ANTONIO to LAD Hyperlipidemia (Chronic) Hypertension (Acute 10/19/14) Status post insertion of drug-eluting stent into left anterior descending (LAD) artery Surgical History History of cardiac catheterization (Resolved) Family History Mother Heart disease Father Heart failure Social History Preferred Language: Malian Communication Ability: Effective Hand Stone Polisher Required: No Beliefs That Will Affect Care: None Current Living Situation: Alone Feels Safe at Home: Yes Smoking Status: Current every day smoker Tobacco Type: cigarettes ; Cigarettes Per Day: 5 ; Hx Alcohol Use: Yes Alcohol type: beer Alcohol Intake Frequency: Rarely Hx Substance Use: No Review of Systems Review of Systems: All systems reviewed & are unremarkable except as noted in HPI & below Physical Exam Constitutional: well developed, well nourished, + ill appearing and + obese Respiratory: Auscultation: + rhonchi; no crackles, no rales and no wheezes Cardiovascular: Rate/Rhythm: regular rate Heart Sounds: normal S1 and normal S2; no gallop, no murmur and no cardiac rub Palpation: normal PMI Vessels: radial pulses present; no JVD and no carotid bruit Extremities: no edema Gastrointestinal (Abdomen): Inspection/Auscultation: abdomen normal to inspection and normal bowel sounds; abdomen not distended Percussion/Palpation: abdomen nontender, no guarding, abdomen not rigid and + abdomen not soft Musculoskeletal: no cyanosis or clubbing, extremities motor strength 5/5 Head/Neck/Chest: normocephalic and head atraumatic Skin: no rashes Neurologic: moves all extremities; no focal motor deficits Psychiatric: A+Ox3, euthymic affect Results & Data ([facility]) Vital Signs (Past 12 Hours) Vital Signs Temp Pulse Pulse Resp BP BP Pulse Ox 02/03/20 08:00 36.4 C L 61 24 115/73 96 02/03/20 02:37 36.5 C 54 L 18 145/83 H 99 02/03/20 01:48 78 18 131/85 97 02/03/20 00:41 67 18 126/90 96 02/02/20 23:24 36.5 C 72 20 134/84 98 (1) Chest pain Chest pain type: chest pain on breathing Qualified Code(s): R07.1 - Chest pain on breathing
[2020-02-03] MEDS ORDERED: PERFLUTREN LIPID MICROSPHERE (DEFINITY) IV ONE (09:44)
[2020-02-03 10:15] LABS: D Dimer 220 ug/L FEU (0-500)
[2020-02-03] MEDS: predniSONE 20 MG TAB PO SCH (16:17)
--- NOTE | 2020-02-03 18:10 | Communication Note ---
Date of Service: February 03, 2020 Pt was seen and examined Lying in bed with no distress Pt said that he is having alot pain in the middle of his chest Pt said that pain his worst when lying down and when he takes deep breath He said that he does have a dry cough and everytime he coughs he has tenderness Denies any chest pain, palpitation, dizziness and fever Exam General- No acute distress Head- atraumatic Eyes- PERRL, EOMI, ENT- oropharynx clear Neck- supple, no JVD Lungs- +coarse BS Heart- regular rhythm; no murmur Abdomen- normal bowel sounds, soft, nontender Extremities- no calf tenderness Neuro- alert, oriented x 3; PERRL, EOMI; no facial palsy; no dysarthria Skin- warm & dry A/P Pleuritic Chest Pain Pain reproducible in nature CXR showed no acute cardiopulmonary findings. D-dimer negative Troponin x2 negative EKG showed no ischemic changes No evidence of acute coronary syndrome at this time. Influenza and Lyme screening negative Echo showed left ventricular wall motion is normal. No pericardial effusion. Ejection fraction 60 to 65% Case discussed with cardiology recommended corticosteroid taper for treatment of pleuritic chest pain (try to avoid NSAID since pt on dual antiplatelet to avoid risk of bleeding ) Starting on prednisone 40mg daily Pt would like to stay for tonight and discharge in am Left arm numbness Happened about [address] head showed no acute intracranial abnormality. CAD S/P cardiac cath with successful PCI few months ago Continue Plavix, aspirin, Metoprolol and startin Dual antiplatelet therapy must be continued for minimum of 6 months post percutaneous intervention. HTN BP stable Continue Losartan and metoprolol DVT px on Lovenox subq CODE STATUS FULL CODE Disposition Discharge home tomorrow
[2020-02-03] MEDS: guaiFENesin 200 MG TAB PO SCH ×2 (20:44→23:48)
[2020-02-03] MEDS ORDERED: ASPIRIN 81 MG ECTAB PO SCH (21:00)
--- NOTE | 2020-02-03 22:18 | Electrocardiogram Report ---
Test Reason : Blood Pressure : / mmHG Vent. Rate : 064 BPM Atrial Rate : 064 BPM P-R Int : 172 ms QRS Dur : 142 ms QT Int : 434 ms P-R-T Axes : 058 -13 020 degrees QTc Int : 447 ms Normal sinus rhythm Right bundle branch block Abnormal ECG When compared with ECG of 01-JAN-2020 06:42, No significant change was found Confirmed by Juan Peguero ([id number]) on 02/03/2020 10:18:46 PM Referred By: REFERRED SELF Confirmed By:Juan Peguero
--- NOTE | 2020-02-03 22:35 | Electrocardiogram Report ---
Test Reason : Blood Pressure : / mmHG Vent. Rate : 061 BPM Atrial Rate : 061 BPM P-R Int : 174 ms QRS Dur : 144 ms QT Int : 436 ms P-R-T Axes : 000 183 172 degrees QTc Int : 438 ms Normal sinus rhythm Right bundle branch block Consider limb lead reversal Abnormal ECG When compared with ECG of 02-FEB-2020 23:33, QRS axis Shifted left Confirmed by Juan Peguero ([id number]) on 02/03/2020 10:35:38 PM Referred By: REFERRED SELF Confirmed By:Juan Peguero
[2020-02-04] MEDS: guaiFENesin 200 MG TAB PO SCH ×2 (05:24→11:32)
[2020-02-04] MEDS: MoRPHine SULFATE 4 MG/ML 1 ML CARP\\VIAL IV PRN (06:56)
[2020-02-04] MEDS: ENOXAPARIN INJ 40 MG/0.4 ML SYR SQ SCH (08:59)
[2020-02-04] MEDS: METOPROLOL SUCC 50MG EXT REL TAB PO SCH (09:00)
[2020-02-04] MEDS: predniSONE 20 MG TAB PO SCH (09:00)
[2020-02-04] MEDS: ATORVASTATIN 40 MG TAB PO SCH (09:00)
[2020-02-04] MEDS: CLOPIDOGREL BISULFATE 75 MG TAB PO SCH (09:00)
[2020-02-04] MEDS: LOSARTAN POTASSIUM 25 MG TAB PO SCH (09:00)
[2020-02-04] MEDS: PANTOprazole 40 MG TAB PO SCH (09:01)
--- NOTE | 2020-02-04 10:53 | Cardiology Progress Note ---
Date of Service February 04, 2020 Assessment & Plan (1) Chest pain: (2) CAD (coronary artery disease): (3) RBBB (right bundle branch block): Chest pain is noncardiac and improving with addition of anti-inflammatory therapy. Limited 2D transthoracic echocardiogram demonstrates normal left brandon tricular wall motion without evidence of pericardial effusion. His cardiac enzymes are undetectable. Patient is not a candidate for long-term NSAIDs due to CAD and antiplatelet therapy. Continue corticosteroid taper per direction of internal medicine. Dual antiplatelet therapy must be continued for minimum of 6 months post percutaneous intervention. Cardiology will sign off. Please call with questions. Subjective Patient seen and examined the bedside. Pleuritic chest pain improved with addition of corticosteroids. Patient complains of nonproductive cough. Requesting discharge if possible. No orthopnea, PND, or lower extremity edema. No dysrhythmias on telemetry. Review of Systems Review of Systems: All systems reviewed & are unremarkable except as noted in HPI & below Physical Exam Constitutional: well developed, well nourished, + ill appearing and + obese Respiratory: Auscultation: + rhonchi; no crackles, no rales and no wheezes Cardiovascular: Rate/Rhythm: regular rate Heart Sounds: normal S1 and normal S2; no gallop, no murmur and no cardiac rub Palpation: normal PMI Vessels: radial pulses present; no JVD and no carotid bruit Extremities: no edema Gastrointestinal (Abdomen): Inspection/Auscultation: abdomen normal to inspection and normal bowel sounds; abdomen not distended Percussion/Palpation: abdomen nontender, no guarding, abdomen not rigid and + abdomen not soft Musculoskeletal: no cyanosis or clubbing, extremities motor strength 5/5 Head/Neck/Chest: normocephalic and head atraumatic Skin: no rashes Neurologic: moves all extremities; no focal motor deficits Psychiatric: A+Ox3, euthymic affect Results & Data Vital Signs (Past 12 Hours) Vital Signs Temp Pulse Pulse Pulse Resp BP Pulse Ox 02/04/20 09:00 62 02/04/20 07:30 36.6 C 56 L 20 158/92 H 96 02/04/20 03:57 36.5 C 56 L 18 137/76 94 02/04/20 00:00 59 L 02/03/20 23:39 36.7 C 62 18 130/84 95 (1) Chest pain Chest pain type: chest pain on breathing Qualified Code(s): R07.1 - Chest pain on breathing
--- NOTE | 2020-02-04 11:07 | Discharge Summary ---
Date of Service February 04, 2020 Admission HPI Per Admitting Provider History obtained from patient and records. Medical history significant for CAD status post stent, hypertension, hyperlipidemia, ongoing tobacco abuse, prediabetes, arthritis. Recent confinement last month for atypical chest pain. Possible pleurisy as per patient. Patient discharged on prednisone course. Recurrent pleuritic left-sided chest discomfort symptoms with shortness of breath relieved by nitro. This week patient noted worsening almost daily chest discomfort symptoms. Dry cough symptoms and chills at home as per patient No known sick contacts. Transient episode of left-sided weakness and numbness at home last week. Patient compliant with home meds. Patient at the ER for persistent chest discomfort/heaviness. Medical History as above Surgical History : Back surgeries, wrist surgery, foot surgery Family History : Heart disease Personal/Social history : Half pack daily, no EtOH intake, disabled Admission Exam Per Admitting Provider GENERAL: Comfortable, slightly anxious, obese, no respiratory distress SKIN: Normal color, warm HEENT: [place] palpebral conjunctivae, no ptosis, dry buccal mucosa NECK : Supple, short neck, no tenderness CHEST : CTA, chest wall tenderness left HEART : RRR, no obvious murmurs ABDOMEN: Some distention, nontender EXTREMITIES : No LE swelling/tenderness, no other conspicuous deformities noted NEUROLOGIC : Coherent, no facial asymmetry, no other gross focality Principal Diagnosis Atypical chest pain Musculoskeletal pain Discharge Exam Constitutional well developed and well nourished; no acute distress Eyes PERRL, conjunctivae normal, anicteric sclerae ENMT external ear and nose normal, oropharynx normal Respiratory normal respiratory effort, lungs clear to auscultation Cardiovascular RRR, no murmur, no edema Chest (Breasts) Additional Comments: Has tenderness to palpation of chest wall Gastrointestinal (Abdomen) normal bowel sounds, soft, nontender, no hepatosplenomegaly Musculoskeletal no cyanosis or clubbing, extremities motor strength 5/5 Neurologic PERRL, EOMI, accommodation nl, no face palsy, no dysarthria Psychiatric A+Ox3, euthymic affect Discharge Data Allergies Allergy/AdvReac Type Severity Reaction Status Date / Time Penicillins Allergy Unknown Unknown Verified 02/02/20 23:44 Consultations 02/03/20 01:03 ED Decision to Admit Stat 02/03/20 02:36 Consult Cardiology Routine Ordered Studies 02/02/20 23:47 CT head/brain wo con Stat Hospital Course (1) Chest pain: Patient has a history of CAD status post recent LAD stent, possible unstable angina, history CAD status post stent Troponins were negative EKG did not show any ischemic changes D-dimers were negative Patient has reproducible tenderness. Chest x-ray did not show any acute abnormalities Patient was started on prednisone. Reports mild improvement in symptoms today. Discharged on a prednisone taper over the next week (2) Hypertension Continue losartan (3) CAD S/P LAD stent Continue aspirin, Plavix, atorvastatin Counseled extensively on smoking cessation Prediabetes, recent outpatient hemoglobin A1c of 5.9 from last year Total Time Total Time Spent Total Time Spent (In Minutes): 25 Total Time Includes: Examination of the Patient, Discharge Planning and Medication Reconciliation Discharge Plan Discharge Items Patient Disposition: Home - Self-Care Reason For Visit: Chest pain Discharge Diagnosis: Atypical chest pain Activity: Resume your previous activity Non-emergency contact: Primary Care Provider and [facility]in Barrel Filler Call non-emergency contact if: you have any medication questions Follow-up/Referrals: Hang Dickson DO [Primary Care Provider] - 02/10/20 11:05 am Diet: Regular and Heart Healthy Addtl Attending Provider Instructions: Mr Pride You came to the hospital complaining of chest pain. You were evaluated with blood tests and echocardiogram. You were also seen by the Rosin Barrel Filler. You are being discharged to continue prednisone taper. Please continue to take the antiplatelet medications for your recent stent. Please follow up with your Cardiology outpatient and your primary doctor. It was a pleasure taking care of you. Pending Studies at Discharge: No Stand-Alone Forms: My [facility], Smoking Cessation Medications and DC Order Prescriptions: New prednisone 20 mg Tablet See Rx Instructions .ROUTE .COMPLEX Qty: 11 RF: 0 guaifenesin 200 mg Tablet 200 mg PO Q6 Qty: 5 RF: 0 Continued aspirin 81 mg Tablet,Chewable 81 mg PO QPM RF: 0 metoprolol succinate 50 mg Tablet Extended Release 24 Hr 50 mg PO QAM RF: 0 losartan 25 mg Tablet 25 mg PO QAM RF: 0 clopidogrel 75 mg Tablet 75 mg PO QAM Qty: 30 RF: 6 nitroglycerin 0.4 mg tablet, sublingual 0.4 mg sublingual DIRECTED PRN (Reason: Chest Pain) RF: 0 tramadol 50 mg tablet 50 mg PO Q12H PRN (Reason: pain) Qty: 10 RF: 0 atorvastatin 80 mg tablet 80 mg PO DAILY RF: 0 pantoprazole 40 mg tablet,delayed release (DR/EC) 40 mg PO DAILY RF: 0 Discharge Orders: Discharge Order (Routine); Ordered 02/04/20 Ordered By: Angi Bush Admission Data Admit Date/Time: 02/03/20 01:43 Attending Provider: Angi Bush I. Admit Provider: Gopal Tucker Primary Care Provider: Hang Dickson Other Providers: Gopal Tucker ; Matteo Hawkins Wilkerson Other Interventions: Discharge Summary Assessment (RN) Last Done: 02/04/20 11:16 DC Date/Time DO NOT enter until pt leaves facility: 02/04/20 11:49
== END 2020-02-04 11:49 | disposition home or self-care (01) ==
LOC: ED 23:22 → 2S 23:22 → SUATTDRO 02-03 01:43 → 2S 02-03 01:56

== ENCOUNTER 2025-03-13 00:22 | Observation (INO) ==
--- NOTE | 2025-03-13 00:54 | Emergency Department Note ---
History of Present Illness General Chief complaint: Chest Pain Stated complaint: CENTER CHEST PAIN INTO RT SIDE FOR TWO NIGHTS Time Seen by Provider: 03/13/25 00:30 History of Present Illness Maximum Pain Intensity: 9 This 54-year-old male with a history of coronary disease who continues to smoke presents ER complaining of right-sided chest pain tonight. Patient did mow the yard the other day. He did develop some chest pains while mowing the yard. Patient denies fever, chills, cough, congestion, abdominal pain. He has had some left leg pain and swelling. No history of PE or DVT. Home Medications Medication Instructions Recorded Confirmed Type aspirin 81 mg chewable tablet 81 mg PO QAM 07/27/18 03/13/25 History metoprolol succinate 50 mg 50 mg PO QAM 05/07/19 03/13/25 History tablet,extended release 24 hr clopidogrel 75 mg tablet 75 mg PO QAM #30 tabs 12/03/19 03/13/25 Rx nitroglycerin 0.4 mg sublingual 0.4 mg sublingual DIRECTED PRN 12/31/19 03/13/25 History tablet Chest Pain atorvastatin 80 mg tablet 80 mg PO QAM 02/02/20 03/13/25 History albuterol sulfate 90 mcg/actuation 2 puff inhalation Q4H PRN 08/22/23 03/13/25 History aerosol inhaler SOB/wheezing losartan 50 mg tablet 50 mg PO DAILY 06/18/24 03/13/25 History Allergies Allergy/AdvReac Type Severity Reaction Status Date / Time amoxicillin Allergy Intermediate Hives Verified 03/13/25 01:13 Penicillins Allergy Intermediate Hives Verified 03/13/25 01:13 Past Med/Surg History Problem List (Updated 03/13/25 @ 01:52 by Shelly Patel PA-C) Atypical chest pain (Acute) Osteoarthritis History of back surgery Left arm weakness (Acute) Headache (Acute) RBBB (right bundle branch block) DVT prophylaxis Chest pain (Acute) CAD (coronary artery disease) 12/02/2019: ANTONIO to LAD Hypertension (Acute 10/19/14) Hyperlipidemia (Chronic) Medical History Osteoarthritis CAD (coronary artery disease) 12/02/2019: ANTONIO to LAD Status post insertion of drug-eluting stent into left anterior descending (LAD) artery Hyperlipidemia Hypertension (10/19/14) Surgical History History of back surgery History of cardiac catheterization Family History Mother Heart disease Father Heart failure Social History Smoking Status: Current every day smoker Tobacco Type: Cigarettes Cigarettes Per Day: 5; Hx Alcohol Use: Yes Alcohol type: beer Hx Substance Use: No Preferred Language: Panamanian 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 Beliefs That Will Affect Care: None Current Living Situation: Alone Feels Safe at Home: Yes Assistive Devices: None Review of Systems A total of 10 systems reviewed and were otherwise negative Physical Exam Vital Signs Vital Signs - 24 hr 03/13/25 00:28 03/13/25 00:34 03/13/25 00:37 Temperature 36.5 C Temperature Source Oral Pulse Rate 82 75 Pulse Rate [Finger] Pulse Rhythm Respiratory Rate 20 Respiratory Effort / Characteristics Respiratory Depth Normal Blood Pressure 174/80 H Blood Pressure [Right Arm] Blood Pressure Mean 111 Blood Pressure Mean [Right Arm] Pulse Oximetry 99 Oxygen Delivery Method Room Air Room Air Sepsis Recent Fever Within 48 Hours No Sepsis New/Unexplained Change in Mental Status N/A Sepsis Action Taken by Nursing No Action Required 03/13/25 00:37 03/13/25 00:40 Temperature Temperature Source Pulse Rate 66 Pulse Rate [Finger] 70 Pulse Rhythm Regular Respiratory Rate 20 20 Respiratory Effort / Characteristics Non-Labored Respiratory Depth Normal Blood Pressure Blood Pressure [Right Arm] 162/108 H Blood Pressure Mean Blood Pressure Mean [Right Arm] 126 Pulse Oximetry 98 Oxygen Delivery Method Room Air Room Air Sepsis Recent Fever Within 48 Hours Sepsis New/Unexplained Change in Mental Status Sepsis Action Taken by Nursing VITALS: Vitals are noted on the nurse's note and reviewed by myself. Vital signs stable. GENERAL: White male, in no acute distress, nondiaphoretic, well-developed well- nourished. SKIN: Capillary reflex less than 2 seconds. HEENT: Normocephalic. PERRLA. EOMI. Nares patent. Mucous membranes moist. Neck is supple without nuchal rigidity. HEART: Regular rate and rhythm LUNGS: Clear to auscultation bilaterally without wheezes, rales or rhonchi. No retractions or accessory muscle use. ABDOMEN: Positive bowel sounds x 4. Normal tympanic percussion. Soft, nontender, without masses or organomegaly. Powell sign negative. No guarding or rebound tenderness. no CVA tenderness MUSCULOSKELETAL: No gross musculoskeletal defects. Left calf tender to palpation. Right calf nontender. NEURO: Patient was alert and oriented to person place and time. No focal neurological deficits. Course Administered Medications Discontinued Medications Acetaminophen (Ofirmev) 1,000 mg in 100 mls @ 400 mls/hr IV NOW STA Stop: 03/13/25 01:25 Last Admin: 03/13/25 01:40 Dose: 400 mls/hr Documented By: SUNIL Ioversol (Optiray 320 125ml) 125 ml IV ONCE ONE Stop: 03/13/25 01:06 Last Admin: 03/13/25 01:05 Dose: 118 ml Documented By: ALLYSON Medical Decision Making Medical Records Attestation: I reviewed the patient's medical records. Home Medications Current Medication List: was personally reviewed by me Laboratory Data Attestation: I reviewed the patient's lab results. 03/13/25 00:31 03/13/25 00:31 Lab Results 03/13/25 03/13/25 Range/Units 00:31 00:49 WBC 10.08 (4.8-10.8) K/ul RBC 4.62 L (4.70-6.10) M/uL Hgb 13.9 L (14.0-18.0) g/dl POC Hgb 12.9 L (14.0-18.0) g/dl Hct 40.8 L (42.0-52.0) % POC Hct 38 L (42-52) % MCV 88.3 (80.0-100.0) fL MCH 30.1 (25.0-34.0) pg MCHC 34.1 (32.0-36.0) g/dL RDW Std Deviation 46.0 (36.4-46.3) fL RDW Coeff of Vannessa 14.2 (11.5-14.5) % Plt Count 198 (130-400) K/uL MPV 10.0 (9.4-12.4) fL Immature Gran % (Auto) 0.3 % Neut % (Auto) 54.7 % Lymph % (Auto) 37.3 % Curry % (Auto) 5.0 % Eos % (Auto) 2.2 % Baso % (Auto) 0.5 % Neut # (Auto) 5.52 (1.40-6.50) K/uL Lymph # (Auto) 3.76 H (1.20-3.40) K/uL Curry # (Auto) 0.50 (0.11-0.59) K/uL Eos # (Auto) 0.22 (0.00-0.50) K/uL Baso # (Auto) 0.05 (0.00-0.20) K/uL Immature Gran # (Auto) 0.03 (0.01-0.20) K/uL POC Sodium 139 (135-144) mmol/L Sodium 137 (136-145) mmol/L POC Potassium 3.5 (3.3-5.0) mmol/L Potassium 3.6 (3.5-5.1) mmol/L POC Chloride 102 (101-112) mmol/L Chloride 106 (98-107) mmol/L Carbon Dioxide 26 (21-32) mmol/L POC Total CO2 24 (24-31) mmol/L Anion Gap 5 (3-11) POC Anion Gap 17.0 (16-25) mmol/L POC BUN 15 (7-18) mg/dl BUN 14 (6-23) mg/dl Creatinine 1.04 (0.6-1.4) mg/dl POC Creatinine 1.0 (0.6-1.3) mg/dl Est Cr Clr Drug Dosing Not Reportable eGFR 85.33 BUN/Creatinine Ratio 13.5 (10-20) Glucose 146 H (70-99(Fasting)) mg/dl POC Glucose (other) 143 H (70-99) mg/dl Calcium 8.8 (8.6-10.3) mg/dl POC Ioniz Calcium Fatmata 1.13 (1.12-1.32) mmol/l Total Bilirubin 0.3 (0.2-1.0) mg/dl AST 17 (13-39) U/L ALT 20 (7-52) U/L Alkaline Phosphatase 134 H (34-104) U/L Troponin I High Sens 5.4 (0-20) pg/ml Total Protein 7.5 (6.0-8.3) gm/dl Albumin 4.0 (3.4-5.0) gm/dl Globulin 3.5 (2.5-4.0) gm/dl Albumin/Globulin Ratio 1.1 (0.9-2) Lipase 18 (11-82) U/L Imaging Data Attestation: I personally reviewed and interpreted this imaging study as follows: Radiologist's Impression: Chest CTA 03/13/25 00:39 EXAM: CT angio chest PE protocol CLINICAL HISTORY: Chest Pain, eval for PE TECHNIQUE: Contiguous axial images were obtained from the neck base through the upper abdomen following intravenous administration of iodinated contrast material. Angiographic images were processed, 3D MIP images were acquired for interpretation. If IV contrast material had not been administered, the likelihood of detecting abnormalities relevant to the patient's condition would have been substantially decreased. Coronal and sagittal 3-D MIPs were likewise performed and indicated to increase the sensitivity of detectin diffuse clinically relevant pathology. CT scan was performed according to ALARA (as low as reasonable achievable). COMPARISON: None. FINDINGS: Adequate contrast bolus without evidence of pulmonary embolism. The central airways are patent. Dependent densities noted in both lungs The lungs are otherwise clear. No pleural effusion. The heart, aorta, and pulmonary arteries are of normal size and configuration. There are no appreciable coronary artery and aortic atherosclerotic calcifications. No pericardial effusion is identified. The thyroid is unremarkable. No mediastinal, hilar, or axillary lymphadenopathy is noted. No suspicious lytic or sclerotic osseous lesions are identified. IMPRESSION: No evidence of pulmonary embolism or pulmonary disease. Electronically signed by Fidel Smith 03-13-2025 01:43 AM [facility] Narrative Prior records/ancillary studies reviewed. Triage Nursing notes reviewed. Additional history obtained from nursing. The patient's history was concerning for chest pain. Differential diagnosis: Etiologies such as cardiac ischemia, aortic dissection, pulmonary embolism, pneumonia, pneumothorax, musculoskeletal, infections, pericarditis, myocarditis, esophageal rupture, gastrointestinal, as well as others were entertained. Physical examination: As above. ER treatment provided: An order was placed for continuous cardiac monitoring. The monitor shows a rate of 60-100 with a sinus rhythm per my interpretation. Tylenol and Toradol ordered On reassessment the patient felt better. Diagnostic interpretation by me: The electrocardiogram was ordered for chest pain EKG: Normal sinus, right bundle, no acute ST-T wave changes, no Sgarbossa. Impression normal sinus rhythm with a right bundle branch block unchanged to prior independently interpreted by myself I think arrhythmia is unlikely. EKG shows normal sinus rhythm with no interval abnormalities such as QT prolongation or WPW. There are no findings to suggest Brugada syndrome. Cardiac monitoring in the emergency department reveals no tachycardic or bradycardic dysrhythmia. Hypertrophic cardiomyopathy was considered but there are no clear historical elements pointing toward this. EKG is not suggestive. The QRS voltage is not extremely large and there are no suggestive Q waves. The labs Independently Interpreted by myself revealed first troponin was negative and repeat was ordered hyperglycemia without DKA Imaging studies: CT was reviewed and read by radiology HEART SCORE: Hx: high/mod/low suspicion: 0 ECG: ST depression/nonspecific changes/normal: 0 Age: Greater than 65/45-64/less than 45: 1 Risk factors: (Hypertension, hyperlipidemia, diabetes, coronary disease, tobacco use, cocaine use): 2 Troponin: Greater than 2 times normal limits/1-2 times normal limits/normal: 0 Total: 3 Consultation: A consultation was placed with the hospitalist. The case was discussed and diagnostics were reviewed. The patient was evaluated in the ER for further treatment. Exam and history seen consistent with chest pain with risk factors for heart disease. He has had prior stents. First troponin is negative. CT is negative. Patient would like to be admitted for cardiology evaluation. Medicine was consulted and the case was discussed. He will be evaluated by the hospitalist for admission. By the evaluation outlined above emergent etiologies such as aortic dissection, pulmonary embolism, pneumonia, pneumothorax, infections, pericarditis, myocarditis, gastrointestinal, as well as others were deemed relatively unlikely. The pt informed about the findings as listed above. All questions were answered and pleased with the treatment. The chart was completed utilizing [employer] Speech voice recognition software. Grammatical errors, random word insertions, pronoun errors, and incomplete sentences are an occassional consequence of this system due to software limitations, ambient noise, and hardware issues. Any formal questions or concerns about the content, text, or information contained within the body of this dictation should be directly addressed to the physician administrative assistant office manager for clarification. Impression & Plan Atypical chest pain Discharge Plan Visit Data Chief Complaint: Chest Pain Stated Complaint: CENTER CHEST PAIN INTO RT SIDE FOR TWO NIGHTS ED Provider: Marlin Mason ED Midlevel Provider: Shelly Patel Discharge Problem: Atypical chest pain Patient Disposition: Admitted As Inpatient Condition: Good Forms Stand Alone Forms: My [facility] Prescriptions Prescriptions: No Action aspirin 81 mg Tablet,Chewable 81 mg PO QAM metoprolol succinate 50 mg Tablet Extended Release 24 Hr 50 mg PO QAM Patient Comments: ran out clopidogrel 75 mg Tablet 75 mg PO QAM Qty: 30 6RF nitroglycerin 0.4 mg tablet, sublingual 0.4 mg sublingual DIRECTED PRN (Reason: Chest Pain) atorvastatin 80 mg tablet 80 mg PO QAM albuterol sulfate 90 mcg/actuation HFA aerosol inhaler 2 puff INHALATION Q4H PRN (Reason: SOB/wheezing) losartan 50 mg tablet 50 mg PO DAILY Referrals Referrals: Cary Vazquez CRNP [Primary Care Provider] -
[2025-03-13 00:58] LABS: Basophils # (auto) 0.05 K/uL (0.00-0.20); Basophils % (auto) 0.5 %; Eosinophils # (auto) 0.22 K/uL (0.00-0.50); Eosinophils % (auto) 2.2 %; Hematocrit (blood only) 40.8 % (42.0-52.0); Hemoglobin 13.9 g/dl (14.0-18.0); Immature Granulocytes # (auto) 0.03 K/uL (0.01-0.20); Immature Granulocytes % (auto) 0.3 %; Lymphocytes # (auto) 3.76 K/uL (1.20-3.40); Lymphocytes % (auto) 37.3 %; Mean Corpuscular Hemoglobin 30.1 pg (25.0-34.0); Mean Corpuscular Hgb Conc 34.1 g/dL (32.0-36.0); Mean Corpuscular Volume 88.3 fL (80.0-100.0); Neutrophils # (auto) 5.52 K/uL (1.40-6.50); Neutrophils % (auto) 54.7 %; Platelet Count 198 K/uL (130-400); RDW Coefficient of Variation 14.2 % (11.5-14.5); Red Blood Count 4.62 M/uL (4.70-6.10); White Blood Count 10.08 K/ul (4.8-10.8)
[2025-03-13 01:02] LABS: iSTAT Hemoglobin 12.9 g/dl (14.0-18.0); iSTAT Ionized Calcium 1.13 mmol/l (1.12-1.32); iSTAT Potassium 3.5 mmol/L (3.3-5.0)
[2025-03-13] MEDS: OPTIRAY 320 125ml IV ONE (01:05)
[2025-03-13 01:16] LABS: Alanine Aminotransferase 20 U/L (7-52); Albumin Globulin Ratio 1.1 (0.9-2); Alkaline Phosphatase 134 U/L (34-104); Anion Gap 5 (3-11); Aspartate Aminotransferase 17 U/L (13-39); BUN Creatinine Ratio 13.5 (10-20); Bilirubin,Total 0.3 mg/dl (0.2-1.0); Blood Urea Nitrogen 14 mg/dl (6-23); Calcium 8.8 mg/dl (8.6-10.3); Carbon Dioxide 26 mmol/L (21-32); Chloride 106 mmol/L (98-107); Globulin 3.5 gm/dl (2.5-4.0); Glucose 146 mg/dl (70-99(Fasting)); Lipase 18 U/L (11-82); Potassium 3.6 mmol/L (3.5-5.1); Sodium 137 mmol/L (136-145); Total Protein 7.5 gm/dl (6.0-8.3)
[2025-03-13 01:23] LABS: Troponin I High Sensitivity 5.4 pg/ml (0-20)
[2025-03-13] MEDS: ACETAMINOPHEN 1,000 MG/100 ML VIAL IV STA (01:40)
--- NOTE | 2025-03-13 01:43 | CT Scan Report ---
EXAM: CT angio chest PE protocol CLINICAL HISTORY: Chest Pain, eval for PE TECHNIQUE: Contiguous axial images were obtained from the neck base through the upper abdomen following intravenous administration of iodinated contrast material. Angiographic images were processed, 3D MIP images were acquired for interpretation. If IV contrast material had not been administered, the likelihood of detecting abnormalities relevant to the patient's condition would have been substantially decreased. Coronal and sagittal 3-D MIPs were likewise performed and indicated to increase the sensitivity of detectin diffuse clinically relevant pathology. CT scan was performed according to ALARA (as low as reasonable achievable). COMPARISON: None. FINDINGS: Adequate contrast bolus without evidence of pulmonary embolism. The central airways are patent. Dependent densities noted in both lungs The lungs are otherwise clear. No pleural effusion. The heart, aorta, and pulmonary arteries are of normal size and configuration. There are no appreciable coronary artery and aortic atherosclerotic calcifications. No pericardial effusion is identified. The thyroid is unremarkable. No mediastinal, hilar, or axillary lymphadenopathy is noted. No suspicious lytic or sclerotic osseous lesions are identified. IMPRESSION: No evidence of pulmonary embolism or pulmonary disease. Electronically signed by Fidel Smith 03-13-2025 01:43 AM
[2025-03-13] MEDS: KETOROLAC TROMETHAMINE 15 MG/ML VIAL IV STA (01:52)
--- NOTE | 2025-03-13 02:52 | History & Physical Report ---
Date of Service March 13, 2025 Assessment & Plan (1) Chest pain: Plan: 54-year-old male with past medical history significant for dyslipidemia, prediabetes, reactive airway disease, hypertension, history of CAD status post stent, tobacco use disorder, obesity, lumbar herniated nucleus pulposus, osteoarthritis of spine with radiculopathy, osteoarthritis of knee presents with chest pain. Patient says couple of days ago stopped mowing grass because of chest pain . Day before yesterday in the morning around 3 to 4 AM he woke up from sleep with chest pain in the middle of his chest radiating to the right side which lasted for about an hour and subsided. Tonight again at 11:30 PM patient was lying down when he had chest pain again same area severe in nature which prompted him to the ER. The pain was severe for 45 minutes and improved. Currently pain is mild. During pain he was feeling short of breath. Denies any nausea. No sweating. No blurred vision. No runny nose or sore throat. No fevers. No abdominal pain. Normal bowel and bladder movements. Patient also complaining of numbness and some pain in the left leg going for a week. Patient says he has chronic lower back pain. Chest pain History of CAD s/p ANTONIO to proximal LAD in April 2020 Initial EKG and troponin unremarkable Had chest pain on exertion while mowing grass Will follow serial cardiac enzymes and echo N.p.o. Telemetry Consult cardio in a.m. for further recommendations History of CAD status post stent On aspirin Plavix and statin and beta-ebony Numbness in the left leg Says going on for 1 week He was also in the ER in 05/2024 for left foot numbness Also has some calf tenderness Will get Doppler, D-dimer and CT lumbar spine Hypertension On losartan metoprolol succinate we will monitor Hyperlipidemia On statin Prediabetes Follow HbA1c levels DVT prophylaxis SCDs Disposition Observation med/telemetry Full code. History of Present Illness Chief Complaint: Chest pain Primary Care Provider: BLANCA Rahman 54-year-old male with past medical history significant for dyslipidemia, prediabetes, reactive airway disease, hypertension, history of CAD status post stent, tobacco use disorder, obesity, lumbar herniated nucleus pulposus, osteoarthritis of spine with radiculopathy, osteoarthritis of knee presents with chest pain. Patient says couple of days ago stopped mowing grass because of chest pain . Day before yesterday in the morning around 3 to 4 AM he woke up from sleep with chest pain in the middle of his chest radiating to the right side which lasted for about an hour and subsided. Tonight again at 11:30 PM patient was lying down when he had chest pain again same area severe in nature which prompted him to the ER. The pain was severe for 45 minutes and improved. Currently pain is mild. During pain he was feeling short of breath. Denies any nausea. No sweating. No blurred vision. No runny nose or sore throat. No fevers. No abdominal pain. Normal bowel and bladder movements. Patient also complaining of numbness and some pain in the left leg going for a week. Patient says he has chronic lower back pain. Past medical history. As mentioned above Past surgical history. Repair of the right broken foot. Injection of the sacroiliac joint. Left heart catheterization. Social history. . Smoked 0.3 pack a day for 11 years. No alcohol use. No drug use. Family history. Father had throat cancer. CHF. Hypertension. Mother had fatal [place]. Maternal grandmother had diabetes. Allergies Allergy/AdvReac Type Severity Reaction Status Date / Time amoxicillin Allergy Intermediate Hives Verified 03/13/25 01:13 Penicillins Allergy Intermediate Hives Verified 03/13/25 01:13 Home Medications Medication Instructions Recorded Confirmed Type aspirin 81 mg chewable tablet 81 mg PO QAM 07/27/18 03/13/25 History metoprolol succinate 50 mg 50 mg PO QAM 05/07/19 03/13/25 History tablet,extended release 24 hr clopidogrel 75 mg tablet 75 mg PO QA #30 tabs 12/03/19 03/13/25 Rx nitroglycerin 0.4 mg sublingual 0.4 mg sublingual DIRECTED PRN 12/31/19 03/13/25 History tablet Chest Pain atorvastatin 80 mg tablet 80 mg PO QAM 02/02/20 03/13/25 History albuterol sulfate 90 mcg/actuation 2 puff inhalation Q4H PRN 08/22/23 03/13/25 History aerosol inhaler SOB/wheezing losartan 50 mg tablet 50 mg PO DAILY 06/18/24 03/13/25 History Past Med/Surg History Problem List (Updated 03/13/25 @ 02:56 by Cabrera Triana MD) Chest pain Atypical chest pain (Acute) Osteoarthritis History of back surgery Left arm weakness (Acute) Headache (Acute) RBBB (right bundle branch block) DVT prophylaxis Chest pain (Acute) CAD (coronary artery disease) 12/02/2019: ANTONIO to LAD Hypertension (Acute 10/19/14) Hyperlipidemia (Chronic) Medical History Osteoarthritis CAD (coronary artery disease) 12/02/2019: ANTONIO to LAD Status post insertion of drug-eluting stent into left anterior descending (LAD) artery Hyperlipidemia Hypertension (10/19/14) Surgical History History of back surgery History of cardiac catheterization Family History Mother Heart disease Father Heart failure Social History Smoking Status: Current every day smoker Tobacco Type: Cigarettes Cigarettes Per Day: 5; Second Hand Exposure: No; Do You Dip or Chew Tobacco: No; Tobacco Cessation Education Requested by Patient: Yes Hx Alcohol Use: Yes Alcohol type: beer Hx Substance Use: Yes Last Used Substance Other:: 2 weeks ago Preferred Language: Persian Communication Ability: Effective Wedding Florist Required: No Beliefs That Will Affect Care: None Current Living Situation: Alone Other Information That Helps Us Care for You: No Feels Safe at Home: Yes Safety Concerns: Feels Safe At This Time Assistive Devices: Cane Review of Systems Review of Systems: All systems reviewed & are unremarkable except as noted in HPI & below Physical Exam Physical Exam: General-Not in distress Head- atraumatic Eyes- PERRL. ENT- oropharynx clear Neck- supple, no JVD. Lungs- clear to auscultation no wheezing or crackles Heart- regular rhythm; no murmur, no gallop. Abdomen- normal bowel sounds, soft, nontender, no distension Extremities- no pretibial edema, left calf tenderness present. No erythema seen Neuro- alert, oriented PERRL, no facial palsy; no dysarthria; moves extremities Results & Data Results & Data Vital Signs (Past 12 Hours) Vital Signs Temp Pulse Pulse Resp BP BP Pulse Ox 03/13/25 00:40 66 20 03/13/25 00:37 70 20 162/108 H 98 03/13/25 00:37 03/13/25 00:34 75 03/13/25 00:28 36.5 C 82 20 174/80 H 99 O2 Del Method 03/13/25 00:40 Room Air 03/13/25 00:37 Room Air 03/13/25 00:37 Room Air 03/13/25 00:34 03/13/25 00:28 Room Air Diagnostic Findings Laboratory Results WBC 10.08 K/ul (4.8-10.8) 03/13/25 00:31 RBC 4.62 M/uL (4.70-6.10) L 03/13/25 00:31 Hgb 13.9 g/dl (14.0-18.0) L 03/13/25 00:31 POC Hgb 12.9 g/dl (14.0-18.0) L 03/13/25 00:49 Hct 40.8 % (42.0-52.0) L 03/13/25 00:31 POC Hct 38 % (42-52) L 03/13/25 00:49 MCV 88.3 fL (80.0-100.0) 03/13/25 00:31 MCH 30.1 pg (25.0-34.0) 03/13/25 00:31 MCHC 34.1 g/dL (32.0-36.0) 03/13/25 00:31 RDW Std Deviation 46.0 fL (36.4-46.3) 03/13/25 00: RDW Coeff of Vannessa 14.2 % (11.5-14.5) 03/13/25 00:31 Plt Count 198 K/uL (130-400) 03/13/25 00:31 MPV 10.0 fL (9.4-12.4) 03/13/25 00: Immature Gran % (Auto) 0.3 % 03/13/25 00: Neut % (Auto) 54.7 % 03/13/25 00: Lymph % (Auto) 37.3 % 03/13/25 00: Gordon % (Auto) 5.0 % 03/13/25 00: Eos % (Auto) 2.2 % 03/13/25 00:31 Baso % (Auto) 0.5 % 03/13/25 00: Neut # (Auto) 5.52 K/uL (1.40-6.50) 03/13/25 00: Lymph # (Auto) 3.76 K/uL (1.20-3.40) H 03/13/25 00: Gordon # (Auto) 0.50 K/uL (0.11-0.59) 03/13/25 00: Eos # (Auto) 0.22 K/uL (0.00-0.50) 03/13/25 00: Baso # (Auto) 0.05 K/uL (0.00-0.20) 03/13/25 00: Immature Gran # (Auto) 0.03 K/uL (0.01-0.20) 03/13/25 00: POC Sodium 139 mmol/L (135-144) 03/13/25 00:49 Sodium 137 mmol/L (136-145) 03/13/25 00:31 POC Potassium 3.5 mmol/L (3.3-5.0) 03/13/25 00:49 Potassium 3.6 mmol/L (3.5-5.1) 03/13/25 00:31 POC Chloride 102 mmol/L (101-112) 03/13/25 00:49 Chloride 106 mmol/L (98-107) 03/13/25 00:31 Carbon Dioxide 26 mmol/L (21-32) 03/13/25 00: POC Total CO2 24 mmol/L (24-31) 03/13/25 00:49 Anion Gap 5 (3-11) 03/13/25 00:31 POC Anion Gap 17.0 mmol/L (16-25) 03/13/25 00:49 POC BUN 15 mg/dl (7-18) 03/13/25 00:49 BUN 14 mg/dl (6-23) 03/13/25 00:31 Creatinine 1.04 mg/dl (0.6-1.4) 03/13/25 00:31 POC Creatinine 1.0 mg/dl (0.6-1.3) 03/13/25 00:49 Est Cr Clr Drug Dosing Not Reportable 03/13/25 00: eGFR 85.33 04/25/25 00:31 BUN/Creatinine Ratio 13.5 (10-20) 03/13/25 00:31 Glucose 146 mg/dl (70-99(Fasting)) H 03/13/25 00:31 POC Glucose (other) 143 mg/dl (70-99) H 03/13/25 00:49 Calcium 8.8 mg/dl (8.6-10.3) 03/13/25 00: POC Ioniz Calcium Fatmata 1.13 mmol/l (1.12-1.32) 03/13/25 00:49 Total Bilirubin 0.3 mg/dl (0.2-1.0) 03/13/25 00:31 AST 17 U/L (13-39) 03/13/25 00:31 ALT 20 U/L (7-52) 03/13/25 00:31 Alkaline Phosphatase 134 U/L (34-104) H 03/13/25 00:31 Troponin I High Sens 5.4 pg/ml (0-20) 03/13/25 00:31 Total Protein 7.5 gm/dl (6.0-8.3) 03/13/25 00:31 Albumin 4.0 gm/dl (3.4-5.0) 03/13/25 00:31 Globulin 3.5 gm/dl (2.5-4.0) 03/13/25 00:31 Albumin/Globulin Ratio 1.1 (0.9-2) 03/13/25 00:31 Lipase 18 U/L (11-82) 03/13/25 00:31 Impressions Chest CTA 03/13/25 00:39 EXAM: CT angio chest PE protocol CLINICAL HISTORY: Chest Pain, eval for PE TECHNIQUE: Contiguous axial images were obtained from the neck base through the upper abdomen following intravenous administration of iodinated contrast material. Angiographic images were processed, 3D MIP images were acquired for interpretation. If IV contrast material had not been administered, the likelihood of detecting abnormalities relevant to the patient's condition would have been substantially decreased. Coronal and sagittal 3-D MIPs were likewise performed and indicated to increase the sensitivity of detectin diffuse clinically relevant pathology. CT scan was performed according to ALARA (as low as reasonable achievable). COMPARISON: None. FINDINGS: Adequate contrast bolus without evidence of pulmonary embolism. The central airways are patent. Dependent densities noted in both lungs The lungs are otherwise clear. No pleural effusion. The heart, aorta, and pulmonary arteries are of normal size and configuration. There are no appreciable coronary artery and aortic atherosclerotic calcifications. No pericardial effusion is identified. The thyroid is unremarkable. No mediastinal, hilar, or axillary lymphadenopathy is noted. No suspicious lytic or sclerotic osseous lesions are identified. IMPRESSION: No evidence of pulmonary embolism or pulmonary disease. Electronically signed by Fidel Smith 03-13-2025 01:43 AM ECG Additional Comments: ECG. Normal sinus rhythm with rate of 63. Possible left atrial enlargement. Right bundle branch block. No significant change was found. Code Status & VTE Plan VTE Prophylaxis Plan VTE Prophylaxis will be ordered: Yes
[2025-03-13 03:15] VITALS: RESP 18
[2025-03-13] MEDS ORDERED: POLYETHYLENE (MIRALAX) 17 GM PACK PO PRN (03:22)
[2025-03-13] MEDS ORDERED: ALBUTEROL HFA 8 GM INHALER INH PRN (03:22)
[2025-03-13] MEDS ORDERED: NITROGLYCERIN SL 0.4 MG/TAB TAB SL PRN (03:22)
[2025-03-13] MEDS: ACETAMINOPHEN 325 MG TAB PO PRN (04:40)
--- NOTE | 2025-03-13 04:49 | CT Scan Report ---
EXAM: CT lumbar spine wo con CLINICAL HISTORY: lower back pain. numbness in left leg TECHNIQUE: Multiple contiguous axial images were obtained through the lumbar spine without IV contrast. Sagittal and coronal reformatted images were obtained from the axial data. CT scan was performed according to ALARA (as low as reasonable achievable). COMPARISON: None. FINDINGS: Loss of lumbar lordosis Degenerative changes involving lumbar spine in the form of multilevel marginal osteophytes, disc space reduction and facetal arthrosis. Post laminectomy status is noted at L3, L5 level. Interpedicular fixation screw are seen in situ without obvious loosening or fracture Severe bilateral facetal arthrosis are noted through L2-L3 to L5-S1 level. Lumbar vertebral bodies are maintained in height and alignment. No vertebral estructive changes are seen. Posterior disc osteophyte complex is noted at T12-L1 to L5-S1 level with indenting ventral thecal sac and causes bilateral lateral recess and neural foraminal narrowing at respective levels. Paravertebral soft tissues are unremarkable. IMPRESSION: 1. Lumbar spondylosis. 2. No acute fracture or dislocation. Electronically signed by Fidel Smith 03-13-2025 04:48 AM
--- NOTE | 2025-03-13 05:59 | Ultrasound Report ---
EXAM: US venous doppler LE CLINICAL HISTORY: left calf pain. TECHNIQUE: Ultrasound examination of the left lower extremity veins was performed in real time and duplex. One or more of the following were performed: spectral analysis, resistive index, waveform analysis, and pulsed Doppler. COMPARISON: None. FINDINGS: Normal phasic, non-pulsatile, and spontaneous flow is noted in the left common femoral, superficial femoral, popliteal and posterior tibial, and peroneal veins. Visualized veins of the left lower extremity demonstrate normal compressibility. No sonographic evidence of acute deep vein thrombosis (DVT) is detected in the visualized veins of the left lower extremity. Compression and Augmentation: All evaluated veins compress fully with applied transducer pressure. Augmentation of venous flow is noted with distal compression. Additional Findings: No evidence of intraluminal thrombus. IMPRESSION: No sonographic evidence of acute DVT detected in left common femoral, superficial femoral, popliteal and posterior tibial and peroneal veins, at the time of examination. Disclaimer: DVT could be missed early in the disease when clot burden is minimal. For patients with moderate and high pretest probability of DVT and negative ultrasound, the [employer] clinical guidelines recommend testing with a D-dimer assay or repeat ultrasound in 5-7 days. If symptoms worsen, the Society of radiologists in ultrasound recommends repeating ultrasound even earlier. Electronically signed by Harley Hadley 03-13-2025 05:58 AM
--- OUTSIDE RECORDS SUMMARY | 2025-03-13 06:00 | External Medical Summary | Summary of Care ---
Author Name Unknown Organization [facility] Address [address] [place] [address] Phone [phone] Care Team Providers Care Company Driver Name Role Phone Blayne Delgado MD Primary Care Provider [phone] Reason for Visit * Reason Comments eRx-Medication Refill Encounter Details Date Type Department Care Team (Late st Contact Info) Description 10/01/2024 Refill Family Practice [facility] [address] [facility] [place] [address] Blayne Delgado MD [address] [place] [address] Mild intermittent reactive airway disease without complication Allergies Active Allergy Reactions Criticality Noted Date Comments Penicillins 10/05/2008 documented as of this encounter (statuses as of 10/03/2024) Medications aspirin (BABY ASPIRIN) 81 MG chewable tabletIndications :ASCVD (arteriosclerotic cardiovascular disease) Take 1 Tab by mouth daily. 100 Tab 3 017 Active Cyclobenzaprine HCl 5 MG Oral Tablet (Flexeril) Take 1 Tablet by mouth 3 times a day as needed for Muscle spasms. 30 Tablet 023 Active Atorvastatin Calcium 80 MG Oral Tablet (Lipitor)Indicati ons:Dyslipidemia, Coronary artery disease involving [place] coronary artery of [place] heart without angina pectoris Take 1 Tablet by mouth in the morning. In the morning.. 90 Tablet 2 024 Active Clopidogrel Bisulfate 75 MG Oral Tablet (pLAVix)Indicatio ns:Coronary artery disease involving [place] coronary artery of [place] heart without angina pectoris,S/P drug eluting coronary stent placement Take 1 Tablet by mouth in the morning. In the morning.. 90 Tablet 2 Active Losartan Potassium 50 MG Oral Tablet (Cozaar)Indicatio ns:HTN, goal below 130/80 Take 1 Tablet by mouth in the morning. 90 Tablet 3 024 Active predniSONE 10 MG Oral Tablet (Deltasone) Take 5 tabs for 2 days, 4 tabs for 2 days, 3 tabs for 2 days, 2 tabs for 2 days 1 tab for 2 days 30 Tablet Active Additional Information Patient not taking.Reported on 06/19/2024 Nitroglycerin 0.4 MG Sublingual Tablet Sublingual (Nitrostat)Indica tions:S/P drug eluting coronary stent placement Place 1 Tablet under the tongue every 5 minutes as needed for Pain, Chest. 25 Tablet Active methylPREDNISolon e 4 MG Oral Tablet Therapy Pack (Medrol Dosepack)Indicati ons:Chronic bilateral low back pain with bilateral sciatica follow package directions 21 Tablet Active Metoprolol Succinate ER 50 MG Oral Tablet Extended Release 24 Hour (toPROL XL)Indications:Co ronary artery disease involving [place] coronary artery of [place] heart without angina pectoris,HTN, goal below 130/80 TAKE 1 TABLET EVERY MORNING 90 Tablet 3 024 Active Albuterol Sulfate HFA 108 (90 Base) MCG/ACT Inhalation Aerosol SolutionIndicatio ns:Mild intermittent reactive airway disease without complication INHALE 2 PUFFS EVERY 4 HOURS NEEDED FOR SHORTNESS OF BREATH OR WHEEZING 54 g Active Albuterol Sulfate HFA 108 (90 Base) MCG/ACT Inhalation Aerosol SolutionIndicatio ns:Mild intermittent reactive airway disease without complication INHALE 2 PUFFS EVERY 4 HOURS NEEDED FOR SHORTNESS OF BREATH OR WHEEZING 54 g 1 024 2023 Discontinued documented as of this encounter (statuses as of 10/03/2024) Active Problems Problem Noted Date Diagnosed Date Chronic pain of both knees 08/23/2023 Primary osteoarthritis of right knee 04/10/2023 Reactive airway disease 03/23/2022 S/P drug eluting coronary stent placement 2019 Coronary artery disease invo lving [place] coronary artery of [place] heart without angina pectoris 12/19/2019 Dyshidrotic eczema 04/19/2018 HNP (herniated nucleus pulposus), lumbar 017 Osteoarthritis of spine with radiculopathy, lumb ar region 05/17/2017 Obesity, Class II, BMI 35-39.9, isolated (see ac tual BMI) 05/10/2017 Overview (05/10/2017): bmi= 34.26 05/10/17 Tobacco use disorder 05/10/2017 Prediabetes 10/19/2014 HTN, goal below 130/80 Dyslipidemia documented as of this encounter (statuses as of 10/03/2024) Resolved Problems Problem Noted Date Diagnosed Date Resolved Date Acute bilateral low back tenzin n without sciatica 08/23/2023 03/04/2024 Fall 08/23/2023 03/04/2024 Coronary artery disease invo lving [place] coronary artery of [place] heart with angina pectoris 04/10/2023 03/04/2024 Rib contusion, right, subsequent encounter 04/10/2023 03/04/2024 Rash of penis 2022 03/04/[address] D (sexually transmitted disease) 2022 03/04/2024 Sacroiliitis 12/31/2019 03/04/2024 Severe obesity with body mas s index (BMI) of 35.0 to 39.9 with serious comorbidity 12/30/2018 Dental infection 07/25/2017 08/17/2017 Lumbar radiculopathy 05/17/2017 020 Chronic bilateral low back p ain with bilateral sciatica 05/10/2017 06/29/2020 Obesity, Class I, BMI 30.0-3 4.9 (see actual BMI) 08/10/2015 05/09/2017 Overview (08/10/2015): bmi= 34.38 08/10/15 Cellulitis of left foot 08/10/201504/20 Foot dermatitis 08/10/2015 05/09/2017 Chronic back pain 08/10/2015 05/09/2017 Obesity, Class I, BMI 30.0-3 4.9 (see actual BMI) 10/27/2014 05/09/2017 Overview (10/27/2014): bmi= 33.01 10/27/14 Need for pneumococcal vaccination 10/27/2014 05/09/2017 Superficial bruising 10/05/2008 017 ASCVD (arteriosclerotic card iovascular disease) 06/29/2020 documented as of this encounter (statuses as of 10/03/2024) Immunizations Name Administration Dates Next Due Pneumococcal Polysaccharide PPV23 (Pneumovax) Seasonal Influenza, PF, 6 M & above, IM , (FluLaval or Fluzone) 09/30/2019,11/29/2018 TDAP (age 10 and older)(Boostrix) 05/07/2018 documented as of this encounter Social History Tobacco Use Types Packs/Day Years Used Date Smoking Tobacco: Every Day Cigarettes 0.3 11 Smokeless Tobacco: Never Comments:about 6 cigs a day Alcohol Use Standard Drinks/Week Comments No 0 (1 standard drink = 0.6 oz pur e alcohol) none PHQ-2 Answer Date Recorded PHQ Adult Total Score 0 07/31/2022 Hunger Vital Sign Answer Date Recorded Within the past 12 months, y ou worried that your food would run out before you got the money to buy more. Never true 07/31/20 22 Within the past 12 months, t he food you bought just didn't last and you didn't have money to get more. Never true 07/31/2022 Sex and Gender Information Value Date Recorded Sex Assigned at Not on file Legal Sex Male 5:03 AM EST Gender Identity Not on file Sexual Orientation Not on file documented as of this encounter Miscellaneous Notes * Telephone Encounter - Isha Marquis RPh - 10/03/2024 10:11 AM EST Signed Prescriptions: Disp Refills Albuterol Sulfate HFA 108 (90 Base) MCG/AC*54 g 0 Sig: INHALE 2 PUFFS EVERY 4 HOURS NEEDED FOR SHORTNESS OF BREATH OR WHEEZINGAuthorizing Provider: BLAYNE DELGADO User: ISHA MARQUIS * Telephone Encounter - Isha Marquis RP - 10/03/2024 10:10 AM EST RX authorized. Zero refills given until upcoming appt. 10/24/2024 Thank you, Isha Marquis, PharmD Clinical Pharmacist [facility] (formally Telepharmacy) [phone] 10/03/2024 10:10 AM documented in this encounter Plan of Treatment Upcoming Encounters Date Type Department Care Team (Late st Contact Info) Description 10/24/2024 1:20 PM EST Office Visit Family Practice [facility] [address] [place] [address] Blayne Delgado MD [address] [place] [address] Health Maintenance Due Date Last Done Comments Hepatitis B Vaccine (1 of 3 - 19+ 3-dose series) 1989 Cologuard 2015 Colonoscopy 2015 Colorectal Cancer Screening 2015 Fecal Occult Blood Test 2015 Sigmoidoscopy 2015 Pneumococcal Vaccine: Pediatrics (0 to 5 Years) and At-Risk Patients (6 to 64 Years) (2 of 2 - PCV) 10/27/2015 10/27/2014 DISCUSS TOBACCO CESSATION (REFER TO SMARTSET #3291) 05/10/2018 05/10/2017 (Discussed) Zoster Vaccines (1 of 2) 2020 Depression Screening 07/31/2023 07/31/2022, 08/17/20 17 COVID-19 Vaccine ( season) 2024 Influenza Vaccine (FLU shot) (#1) 2024 09/30/2019, 11/29/2018 GFR 01/12/2025 01/12/2024, 02/2022, 03/23/2022, Additional history exists HbA1c 01/12/2025 01/12/2024, 02/2022, 03/23/2022, Additional history exists Albumin/Creatinine Ratio 01/12/2027 01/12/2024, 03/2022 DTap/Tdap Vaccines (2 - Td or Tdap) 05/07/2028 05/07/2018 HPV (Gardasil) Vaccine Aged Out No lo nger eligible based on patient's age to complete this topic MENINGOCOCCAL (MENACTRA/MENVEO) Aged Out No longer eligible based on patient's age to complete this topic documented as of this encounter Medical Devices Not on filedocumented as of this encounter Visit Diagnoses Diagnosis Mild intermittent reactive airway disease without complication documented in this encounter Advance Directives * Full Code (Latest Code Status on File) Date Activated Date Inactivated Comments 10/05/2008 12:57 AM 10/06/2008 11:21 PM Care Teams Company Driver Relationship Specialty Start Date End Date Blayne Delgado MD [address] [place] [id number] PCP - General Family Medicine 01/12/24 documented as of this encounter
--- OUTSIDE RECORDS SUMMARY | 2025-03-13 06:00 | External Medical Summary | Summary of Care ---
Author Name Unknown Organization [facility] Address [address] [place] [address] Phone [phone] Care Team Providers Care Watch Caser Name Role Phone Blayne Delgado MD Primary Care Provider [phone] Reason for Visit * Reason Onset Date Comments Medication Refill 11/14/2024 Encounter Details Date Type Department Care Team (Late st Contact Info) Description 11/14/2024 Refill Family Practice [facility] [address] [facility] [place] [address] Blayne Delgado MD [address] [facility] [place] [address] Coronary artery disease involving mary[place] ig[place] coronary artery of mary[place] ig[place] heart without angina pectoris; S/P drug eluting coronary stent placement; Dyslipidemia Allergies Active Allergy Reactions Criticality Noted Date Comments Penicillins 10/05/2008 documented as of this encounter (statuses as of 11/14/2024) Medications aspirin (BABY ASPIRIN) 81 MG chewable tabletIndications: ASCVD (arteriosclerotic cardiovascular disease) Take 1 Tab by mouth daily. 100 Tab 3 05/10/20 17 Active Cyclobenzaprine HCl 5 MG Oral Tablet (Flexeril) Take 1 Tablet by mouth 3 times a day as needed for Muscle spasms. 30 Tablet 08/23/20 23 Active Losartan Potassium 50 MG Oral Tablet (Cozaar)Indication s:HTN, goal below 130/80 Take 1 Tablet by mouth in the morning. 90 Tablet 3 01/12/20 24 Active predniSONE 10 MG Oral Tablet (Deltasone) Take 5 tabs for 2 days, 4 tabs for 2 days, 3 tabs for 2 days, 2 tabs for 2 days 1 tab for 2 days 30 Tablet 01/12/20 24 Active Additional Information Patient not taking.Reported on 06/19/2024 Nitroglycerin 0.4 MG Sublingual Tablet Sublingual (Nitrostat)Indicat ions:S/P drug eluting coronary stent placement Place 1 Tablet under the tongue every 5 minutes as needed for Pain, Chest. 25 Tablet 06/19/20 24 Active methylPREDNISolone 4 MG Oral Tablet Therapy Pack (Medrol Dosepack)Indicatio ns:Chronic bilateral low back pain with bilateral sciatica follow package directions 21 Tablet 06/19/20 24 Active Metoprolol Succinate ER 50 MG Oral Tablet Extended Release 24 Hour (toPROL XL)Indications:Cor onary artery disease involving mary[place] coronary artery of [place] heart without angina pectoris,HTN, goal below 130/80 TAKE 1 TABLET EVERY MORNING 90 Tablet 3 06/27/20 24 Active Albuterol Sulfate HFA 108 (90 Base) MCG/ACT Inhalation Aerosol SolutionIndication s:Mild intermittent reactive airway disease without complication INHALE 2 PUFFS EVERY 4 HOURS NEEDED FOR SHORTNESS OF BREATH OR WHEEZING 54 g 10/03/20 24 Active Clopidogrel Bisulfate 75 MG Oral Tablet (pLAVix)Indication s:Coronary artery disease involving [place] coronary artery of [place] heart without angina pectoris,S/P drug eluting coronary stent placement Take 1 Tablet by mouth in the morning. In the morning.. 90 Tablet 2 11/14/20 24 Active Atorvastatin Calcium 80 MG Oral Tablet (Lipitor)Indicatio ns:Coronary artery disease involving [place] coronary artery of [place] heart without angina pectoris,Dyslipide chip Take 1 Tablet by mouth in the morning. In the morning.. 90 Tablet 2 11/14/20 24 Active Atorvastatin Calcium 80 MG Oral Tablet (Lipitor)Indicatio ns:Dyslipidemia,Co ronary artery disease involving [place] coronary artery of [place] heart without angina pectoris Take 1 Tablet by mouth in the morning. In the morning.. 90 Tablet 2 01/12/20 24 024 Discontin ued(Refil l) Clopidogrel Bisulfate 75 MG Oral Tablet (pLAVix)Indication s:Coronary artery disease involving [place] coronary artery of m[place] heart without angina pectoris,S/P drug eluting coronary stent placement Take 1 Tablet by mouth in the morning. In the morning.. 90 Tablet 2 01/12/20 24 024 Discontin ued(Refil l) documented as of this encounter (statuses as of 11/14/2024) Active Problems Problem Noted Date Diagnosed Date Chronic pain of both knees 08/23/2023 Primary osteoarthritis of right knee 04/10/2023 Reactive airway disease 03/23/2022 S/P drug eluting coronary stent placement 2019 Coronary artery disease invo lving mary's ig[place] coronary artery of [place] heart without angina pectoris 12/19/2019 Dyshidrotic eczema 04/19/2018 HNP (herniated nucleus pulposus), lumbar 017 Osteoarthritis of spine with radiculopathy, lumb ar region 05/17/2017 Obesity, Class II, BMI 35-39.9, isolated (see ac tual BMI) 05/10/2017 Overview (05/10/2017): bmi= 34.26 05/10/17 Tobacco use disorder 05/10/2017 Prediabetes 10/19/2014 HTN, goal below 130/80 Dyslipidemia documented as of this encounter (statuses as of 11/14/2024) Resolved Problems Problem Noted Date Diagnosed Date Resolved Date Acute bilateral low back tenzin n without sciatica 08/23/2023 03/04/2024 Fall 08/23/2023 03/04/2024 Coronary artery disease invo lving mary's ig[place] coronary artery of m[place] heart with angina pectoris 04/10/2023 03/04/2024 Rib [...] as of this encounter (statuses as of 11/14/2024) Immunizations Name Administration Dates Next Due Pneumococcal [...] encounter Miscellaneous Notes * Telephone Encounter - Blayne Delgado MD - 11/14/2024 10:52 AM ESTSigned Prescriptions: Disp Refills Clopidogrel Bisulfate 75 MG Oral Tablet (p*90 Tab*2 Sig: Take 1 Tablet by mouth in the morning. In the morning.. Authorizing Provider: BLAYNE DELGADO Atorvastatin Calcium 80 MG Oral Tablet (Li*90 Tab*2 Sig: Take 1 Tablet by mouth in the morning. In the morning.. Authorizing Provider: BLAYNE DELGADO --- * Telephone Encounter - Anahi Garza CMA - 11/14/2024 10:15 AM EST Pending Prescriptions: Disp Refills Clopidogrel Bisulfate 75 MG Oral Tablet (p*90 Tab*2 Sig: Take 1 Tablet by mouth in the morning. In the morning.. Atorvastatin Calcium 80 MG Oral Tablet (Li*90 Tab*2 Sig: Take 1 Tablet by mouth in the morning. In the morning.. * Telephone Encounter - Vicenta Santamaria OSA - 11/14/2024 7:46 AM EST Did you pend patient's preferred pharmacy and medication before forwarding?yes Pharmacy: [facility] [id number] [facility] [place] Pending Prescriptions: Disp Refills Clopidogrel Bisulfate 75 MG Oral Tablet (*90 Tab*2 Sig: Take 1 Tablet by mouth in the morning. In the morning.. Atorvastatin Calcium 80 MG Oral Tablet (L*90 Tab*2 Sig: Take 1 Tablet by mouth in the morning. In the morning.. Last Visit: 06/19/2024 (in office), Visit date not found (telemedicine) Next Visit: Visit date not found If no future appointments scheduled, and last appointment is greater than a year ago, please schedule patient for a follow-up appointment Last date the medication was ordered: 01.12.24 Is this request for a controlled substance?No Urine Drug Screen:No results found for this or any previous visit. Patient Phone Numbers Labs: Lab Results Component Value Date/Time CREAT 0.9 01/12/2024 10:01 AM CREAT 1.0 11/20/2019 09:48 AM POTASSIUM 4.5 01/12/2024 10:01 AM POTASSIUM 4.4 11/20/2019 09:48 AM LDL 88 01/12/2024 10:01 AM LDL 113 10/02/2019 09:57 AM ALT 27 01/12/2024 10:01 AM ALT 28 11/20/2019 09:48 AM HGBA1C 6.0 (H) 01/12/2024 10:01 AM HGBA1C 5.9 (H) 10/02/2019 09:57 AM documented in this encounter Plan of Treatment Health Maintenance Due Date Last Done Comments Hepatitis B Vaccine (1 of 3 - 19+ 3-dose series) 1989 Cologuard 2015 Colonoscopy 2015 Colorectal Cancer Screening 2015 Fecal Occult Blood Test 2015 Sigmoidoscopy 2015 Pneumococcal Vaccine: 50+ Years (2 of 2 - PCV) 10/27/2015 10/27/2014 DISCUSS TOBACCO CESSATION (REFER TO SMARTSET #4101) 05/10/2018 05/10/2017 (Discussed) Zoster Vaccines (1 of 2) 2020 Depression Screening 07/31/2023 07/31/2022, 08/17/20 17 COVID-19 Vaccine ( - season) 2024 Influenza Vaccine (FLU shot) (#1) [...] as of this encounter Visit Diagnoses Diagnosis Coronary artery disease involving mary[place] ig[place] coronary artery of mary[place] ig[place] heart without angina pectoris S/P drug eluting coronary stent placement Postsurgical percutaneous transluminal coronary angioplasty status Dyslipidemia Other and unspecified hyperlipidemia documented in this encounter Advance Directives * Full Code (Latest Code Status on File) Date Activated Date Inactivated Comments 10/05/2008 12:57 AM 10/06/2008 11:21 PM Care Teams Watch Caser Relationship Specialty Start Date End Date Blayne Delgado MD [address] [place] [address] PCP - General Family Medicine 01/12/24 documented as of this encounter
--- OUTSIDE RECORDS SUMMARY | 2025-03-13 06:00 | External Medical Summary | Summary of Care ---
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 Name Role Phone Unavailable Primary Care Provider Unavailabl e Reason for Visit * Reason Onset Date Comments Medication Refill 12/10/2024 Encounter Details Date Type Department Care Team (Late st Contact Info) Description 12/10/2024 Refill Family Practice [facility] [address] [place] [address] Blayne Delgado MD [address] [place] [address] Coronary artery disease involving [place] coronary artery of [place] heart without angina pectoris; Dyslipidemia; S/P drug eluting coronary stent placement; HTN, goal below 130/80 Allergies Active Allergy Reactions Criticality Noted Date Comments Penicillins 10/05/2008 documented as of this encounter (statuses as of 12/10/2024) Medications aspirin (BABY ASPIRIN) 81 MG chewable tabletIndications: ASCVD (arteriosclerotic cardiovascular disease) Take 1 Tab by mouth daily. 100 Tab 3 05/10/20 17 Active Cyclobenzaprine HCl 5 MG Oral Tablet (Flexeril) Take 1 Tablet by mouth 3 times a day as needed for Muscle spasms. 30 Tablet 08/23/20 23 Active predniSONE 10 MG Oral Tablet (Deltasone) [...] package directions 21 Tablet 06/19/20 24 Active Albuterol Sulfate HFA 108 (90 Base) MCG/ACT Inhalation Aerosol SolutionIndication s:Mild intermittent reactive airway disease without complication INHALE 2 PUFFS EVERY 4 HOURS NEEDED FOR SHORTNESS OF BREATH OR WHEEZING 54 g 10/03/20 24 Active Atorvastatin Calcium 80 MG Oral Tablet (Lipitor)Indicatio ns:Coronary artery disease involving [place] coronary artery of [place] heart without angina pectoris,Dyslipide chip Take 1 Tablet by mouth daily. 90 Tablet 1 12/10/19 25 Active Clopidogrel Bisulfate 75 MG Oral Tablet (pLAVix)Indication s:Coronary artery disease involving [place] coronary artery of [place] heart without angina pectoris,S/P drug eluting coronary stent placement Take 1 Tablet by mouth in the morning. 90 Tablet 1 12/10/19 25 Active Losartan Potassium 50 MG Oral Tablet (Cozaar)Indication s:HTN, goal below 130/80 Take 1 Tablet by mouth in the morning. 90 Tablet 12/10/19 25 Active Metoprolol Succinate ER 50 MG Oral Tablet Extended Release 24 Hour (toPROL XL)Indications:Cor onary artery disease involving [place] coronary artery of [place] heart without angina pectoris,HTN, goal below 130/80 Take 1 Tablet by mouth in the morning. 90 Tablet 1 12/10/19 25 Active Losartan Potassium 50 MG Oral Tablet (Cozaar)Indication s:HTN, goal below 130/80 Take 1 Tablet by mouth in the morning. 90 Tablet 3 01/12/20 24 025 Discontin ued(Refil l) Metoprolol Succinate ER 50 MG Oral Tablet Extended Release 24 Hour (toPROL XL)Indications:Cor onary artery disease involving [place] coronary artery of [place] heart without angina pectoris,HTN, goal below 130/80 TAKE 1 TABLET EVERY MORNING 90 Tablet 3 06/27/20 24 025 Discontin ued(Refil l) Clopidogrel Bisulfate 75 MG Oral Tablet (pLAVix)Indication s:Coronary artery disease involving [place] coronary artery of [place] heart without angina pectoris,S/P drug eluting coronary stent placement Take 1 Tablet by mouth in the morning. In the morning.. 90 Tablet 2 11/14/20 24 025 Discontin ued(Refil l) Atorvastatin Calcium 80 MG Oral Tablet (Lipitor)Indicatio ns:Coronary artery disease involving [place] coronary artery of [place] heart without angina pectoris,Dyslipide chip Take 1 Tablet by mouth in the morning. In the morning.. 90 Tablet 2 11/14/20 24 025 Discontin ued(Refil l) documented as of this encounter (statuses as of 12/10/2024) Active Problems Problem Noted Date Diagnosed Date Chronic pain of both knees 08/23/2023 Primary osteoarthritis of right knee 04/10/2023 Reactive airway disease 03/23/2022 S/P drug eluting coronary stent placement 2019 Coronary artery disease invo lving [place] coronary artery of [place] heart without angina pectoris 12/19/2019 Dyshidrotic eczema 04/19/2018 HNP (herniated nucleus pulposus), lumbar 017 Osteoarthritis of spine with radiculopathy, lumb ar region 05/17/2017 Obesity, Class II, BMI 35-39.9, isolated (see ac tual BMI) 05/10/2017 Overview (05/10/2017): bmi= 34.26 05/10/17 Tobacco use disorder 05/10/2017 Prediabetes 10/19/2014 HTN, goal below 130/80 Dyslipidemia documented as of this encounter (statuses as of 12/10/2024) Resolved Problems Problem Noted Date Diagnosed Date Resolved Date Acute bilateral low back tenzin n without sciatica 08/23/2023 03/04/2024 Fall 08/23/2023 03/04/2024 Coronary artery disease invo lving pic[place] coronary artery of [place] heart with angina pectoris 04/10/2023 03/04/2024 Rib [...] as of this encounter (statuses as of 12/10/2024) Immunizations Name Administration Dates Next Due Pneumococcal [...] encounter Miscellaneous Notes * Telephone Encounter - Anyi Fish [facility] - 12/10/2024 10:27 AM ESTSigned Prescriptions: Disp Refills Atorvastatin Calcium 80 MG Oral Tablet (Li*90 Tab*1 Sig: Take 1 Tablet by mouth daily.Authorizing Provider: BLAYNE DELGADO User: ANYI FISH Clopidogrel Bisulfate 75 MG Oral Tablet (p*90 Tab*1 Sig: Take 1 Tablet by mouth in the morning.Authorizing Provider: BLAYNE DELGADO User: ANYI FISH Losartan Potassium 50 MG Oral Tablet (Coza*90 Tab*0 Sig: Take 1 Tablet by mouth in the morning.Authorizing Provider: COLBY CLEARY User: ANYI FISH Metoprolol Succinate ER 50 MG Oral Tablet *90 Tab*1 Sig: Take 1 Tablet by mouth in the morning.Authorizing Provider: BLAYNE DELGADO User: ANYI FISH * Telephone Encounter - Anyi Fish [facility] - 12/10/2024 10:27 AM EST Rerouted remaining refills to new pharmacy as requested. Thank you, Anyi Fish, PharmD Clinical Pharmacist [facility] 12/10/24 10:27 AM [phone] * Telephone Encounter - Josue Starr, shackler - 12/10/2024 10:18 AM EST Pt has new insurance and a new pharmacy. Please send new scripts for fill. Did you pend patient's preferred pharmacy and medication before forwarding?yes [facility]acy: [facility] [address] [address] [facility] Pending Prescriptions: Disp Refills Atorvastatin Calcium 80 MG Oral Tablet (L*90 Tab*2 Sig: Take 1 Tablet by mouth in the morning. In the morning.. Clopidogrel Bisulfate 75 MG Oral Tablet (*90 Tab*2 Sig: Take 1 Tablet by mouth in the morning. In the morning.. Losartan Potassium 50 MG Oral Tablet (Coz*90 Tab*3 Sig: Take 1 Tablet by mouth in the morning. Metoprolol Succinate ER 50 MG Oral Tablet*90 Tab*3 Sig: Take 1 Tablet by mouth in the morning. In the morning.. Last Visit: 06/19/2024 (in office), Visit date not found (telemedicine) Next Visit: Visit date not found If no future appointments scheduled, and last appointment is greater than a year ago, please schedule patient for a follow-up appointment Last date the medication was ordered: 11/14/2024,01/12/2024,06/27/2024 Is this request for a controlled substance?No [...] (#1) 2024 09/30/2019, 11/29/2018 GFR 01/12/2025 01/12/2024, 0 02/2022, 03/23/2022, Additional history exists HbA1c 01/12/2025 01/12/2024, 0 02/2022, 03/23/2022, Additional history exists Albumin/Creatinine Ratio [...] Visit Diagnoses Diagnosis Coronary artery disease involving pic[place] coronary artery of pic[place]une heart without angina pectoris Dyslipidemia Other and unspecified hyperlipidemia S/P drug eluting coronary stent placement Postsurgical percutaneous transluminal coronary angioplasty status HTN, goal below 130/80 Unspecified essential hypertension documented in this encounter Advance Directives * Full Code (Latest Code Status on File) Date Activated Date Inactivated Comments 10/05/2008 12:57 AM 10/06/2008 11:21 PM
[2025-03-13 06:04] LABS: Basophils # (auto) 0.04 K/uL (0.00-0.20); Basophils % (auto) 0.3 %; Eosinophils # (auto) 0.18 K/uL (0.00-0.50); Eosinophils % (auto) 1.5 %; Hematocrit (blood only) 40.1 % (42.0-52.0); Hemoglobin 13.6 g/dl (14.0-18.0); Immature Granulocytes # (auto) 0.04 K/uL (0.01-0.20); Immature Granulocytes % (auto) 0.3 %; Lymphocytes # (auto) 3.29 K/uL (1.20-3.40); Lymphocytes % (auto) 27.3 %; Mean Corpuscular Hemoglobin 29.9 pg (25.0-34.0); Mean Corpuscular Hgb Conc 33.9 g/dL (32.0-36.0); Mean Corpuscular Volume 88.1 fL (80.0-100.0); Monocytes # (auto) 0.67 K/uL (0.11-0.59); Monocytes % (auto) 5.6 %; Neutrophils # (auto) 7.85 K/uL (1.40-6.50); Platelet Count 187 K/uL (130-400); RDW Coefficient of Variation 14.3 % (11.5-14.5); RDW Standard Deviation 46.2 fL (36.4-46.3); Red Blood Count 4.55 M/uL (4.70-6.10); White Blood Count 12.07 K/ul (4.8-10.8)
[2025-03-13 06:25] LABS: Anion Gap 6 (3-11); BUN Creatinine Ratio 12.8 (10-20); Blood Urea Nitrogen 12 mg/dl (6-23); Calcium 8.5 mg/dl (8.6-10.3); Carbon Dioxide 26 mmol/L (21-32); Chloride 106 mmol/L (98-107); Creatinine Clr Calc Pharmacy 126.2 ml/min; Glucose 93 mg/dl (70-99(Fasting)); Magnesium 1.8 mg/dl (1.7-2.4); Potassium 3.9 mmol/L (3.5-5.1); Sodium 138 mmol/L (136-145)
[2025-03-13 06:29] LABS: Troponin I High Sensitivity < 2.3 pg/ml (0-20)
[2025-03-13 06:32] LABS: D Dimer 230 ug/L FEU (0-500)
[2025-03-13] MEDS: MoRPHine SULFATE 2 MG/ML CARP IV STA (08:19)
[2025-03-13] MEDS: CLOPIDOGREL BISULFATE 75 MG TAB PO SCH (08:19)
[2025-03-13] MEDS: ATORVASTATIN 40 MG TAB PO SCH (08:19)
[2025-03-13] MEDS: METOPROLOL SUCC 50MG EXT REL TAB PO SCH (08:20)
[2025-03-13] MEDS: LOSARTAN POTASSIUM 50 MG TAB PO SCH (08:20)
[2025-03-13] MEDS: ASPIRIN 81 MG ECTAB PO SCH (08:20)
--- NOTE | 2025-03-13 08:32 | Cardiology Consultation ---
Date of Consultation March 13, 2025 Assessment & Plan (1) Atypical chest pain: (2) CAD (coronary artery disease): (3) Hypertension: (4) Hyperlipidemia: Plan 54 year-old male with history of LAD stenting presents with atypical chest discomfort. Initial evaluation unremarkable including negative cardiac enzymes, stable ECG, and normal wall motion for resting echocardiogram. Recommend further risk stratification with exercise stress echo. Patient agreeable to proceed. Further recommendation pending results. Thank you for allow me to participate in the care of your patient. Addendum: Patient unable to reach target heart rate on a treadmill due to lower extremity weakness. No evidence of inducible ischemia at submaximal heart rate. Dobutamine stress echo was performed having achieved adequate, target heart rate with use of dobutamine and atropine. No regional wall motion abnormalities or ischemia noted. No further inpatient cardiac testing or intervention recommended at this time. Continue current cardiovascular medications. Cardiology will sign off. Thank you for allow me to participate in the care of your patient. Jonathan Crump DO, [facility] History of Present Illness Reason for Consultation: chest pain Requesting Physician: Dr. Triana Attending Physician: Judah Briscoe MD History of Present Illness 54-year-old male presents emergency department with chest pain. History of drug-eluting stent implantation to the proximal LAD 2019. Reports 2 episodes of chest pain at night over the last 7 days. Describes the pain as a sharp burning sensation which woke him from sleep. Denies exertional chest pain or heaviness. Notes palpitations and shortness of breath while mowing his lawn on Sunday. There was no chest discomfort with exertion. Mild residual chest discomfort throughout the morning as well as during his echocardiogram. Preliminary review of bedside echo demonstrates normal wall motion without pericardial effusion. ECG demonstrates right bundle branch block, no changes when compared to prior study. Allergies Allergy/AdvReac Type Severity Reaction Status Date / Time amoxicillin Allergy Intermediate Hives Verified 03/13/25 01:13 Penicillins Allergy Intermediate Hives Verified 03/13/25 01:13 Home Medications Medication Instructions Recorded Confirmed Type aspirin 81 mg chewable tablet 81 mg PO QAM 07/27/18 03/13/25 History metoprolol succinate 50 mg 50 mg PO QAM 05/07/19 03/13/25 History tablet,extended release 24 hr clopidogrel 75 mg tablet 75 mg PO QAM #30 tabs 12/03/19 03/13/25 Rx nitroglycerin 0.4 mg sublingual 0.4 mg sublingual DIRECTED PRN 12/31/19 03/13/25 History tablet Chest Pain atorvastatin 80 mg tablet 80 mg PO QAM 02/02/20 03/13/25 History albuterol sulfate 90 mcg/actuation 2 puff inhalation Q4H PRN 08/22/23 03/13/25 History aerosol inhaler SOB/wheezing losartan 50 mg tablet 50 mg PO DAILY 06/18/24 03/13/25 History Patient History Medical History Status post insertion of drug-eluting stent into left anterior descending (LAD) artery Family History Mother Heart disease Father Heart failure Social History Smoking Status: Current every day smoker Tobacco Type: Cigarettes Cigarettes Per Day: 5; Second Hand Exposure: No; Do You Dip or Chew Tobacco: No; Tobacco Cessation Education Requested by Patient: Yes Hx Alcohol Use: Yes Alcohol type: beer Hx Substance Use: Yes Last Used Substance Other:: 2 weeks ago Preferred Language: Italian Communication Ability: Effective County Bailiff Required: No Beliefs That Will Affect Care: None Current Living Situation: Alone Other Information That Helps Us Care for You: No Feels Safe at Home: Yes Safety Concerns: Feels Safe At This Time Assistive Devices: Cane Review of Systems Review of Systems: All systems reviewed & are unremarkable except as noted in Subjective Physical Exam Constitutional: well nourished; no acute distress Respiratory: normal respiratory effort; no respiratory distress and no labored breathing Auscultation: no crackles, no rales, no rhonchi and no wheezes Cardiovascular: Rate/Rhythm: regular rate and regular rhythm Heart Sounds: normal S1 and normal S2; no murmur Vessels: no JVD Extremities: no edema Gastrointestinal (Abdomen): Inspection/Auscultation: abdomen normal to inspection and normal bowel sounds; abdomen not distended Percussion/Palpation: abdomen soft; abdomen nontender, no guarding and abdomen not rigid Neurologic: CN's II-XI intact bilaterally and moves all extremities; no focal motor deficits Results & Data Vital Signs (Past 12 Hours) Vital Signs Temp Pulse Pulse Resp BP BP Pulse Ox 03/13/25 07:19 36.6 C 63 18 154/93 H 93 03/13/25 04:40 52 L 03/13/25 04:38 36.4 C L 54 L 18 163/90 H 98 03/13/25 03:07 03/13/25 03:07 37.0 C 59 L 18 165/98 H 99 03/13/25 03:00 52 L 20 165/98 H 99 03/13/25 00:40 66 20 03/13/25 00:37 70 20 162/108 H 98 03/13/25 00:37 03/13/25 00:34 75 03/13/25 00:28 36.5 C 82 20 174/80 H 99 O2 Del Method 03/13/25 07:19 Room Air 03/13/25 04:40 03/13/25 04:38 Room Air 03/13/25 03:07 Room Air 03/13/25 03:07 Room Air 03/13/25 03:00 Room Air 03/13/25 00:40 Room Air 03/13/25 00:37 Room Air 03/13/25 00:37 Room Air 03/13/25 00:34 03/13/25 00:28 Room Air Laboratory Results Cardiac Enzymes 03/13/25 03/13/25 03/13/25 Range/Units 00:31 02:24 05:34 AST 17 (13-39) U/L Troponin I High Sens 5.4 4.4 < 2.3 (0-20) pg/ml CBC 03/13/25 03/13/25 Range/Units 00:31 05:34 WBC 10.08 12.07 H (4.8-10.8) K/ul RBC 4.62 L 4.55 L (4.70-6.10) M/uL Hgb 13.9 L 13.6 L (14.0-18.0) g/dl Hct 40.8 L 40.1 L (42.0-52.0) % Plt Count 198 187 (130-400) K/uL Neut # (Auto) 5.52 7.85 H (1.40-6.50) K/uL Lymph # (Auto) 3.76 H 3.29 (1.20-3.40) K/uL [place] # (Auto) 0.50 0.67 H (0.11-0.59) K/uL Eos # (Auto) 0.22 0.18 (0.00-0.50) K/uL Baso # (Auto) 0.05 0.04 (0.00-0.20) K/uL Comprehensive Metabolic Panel 03/13/25 03/13/25 Range/Units 00:31 05:34 Sodium 137 138 (136-145) mmol/L Potassium 3.6 3.9 (3.5-5.1) mmol/L Chloride 106 106 (98-107) mmol/L Carbon Dioxide 26 26 (21-32) mmol/L BUN 14 12 (6-23) mg/dl Creatinine 1.04 0.94 (0.6-1.4) mg/dl Glucose 146 H 93 (70-99(Fasting)) mg/dl Calcium 8.8 8.5 L (8.6-10.3) mg/dl AST 17 (13-39) U/L ALT 20 (7-52) U/L Alkaline Phosphatase 134 H (34-104) U/L Total Protein 7.5 (6.0-8.3) gm/dl Albumin 4.0 (3.4-5.0) gm/dl Intake and Output 03/12/25 03/13/25 03/13/25 22:59 06:59 14:59 Intake Total 100 / 100 Balance 100 / 100 Intake: IV 100 / 100 Acetaminophen 1,000 mg In 100 100 / 100 ml @ 400 mls/hr IV NOW STA Rx#: [id number] Other: Weight 128.4 kg Weight Measurement Method Built in [facility] Diagnostic Findings Cath/intervention report dated 12/02/19: Summary: 1. Severe single vessel coronary artery disease -60-70% proximal mid LAD (FFR 0.69). 2. Successful PCI of proximal to mid LAD with single drug-eluting stent (3.5 x 18 mm Zeyad). Nuclear stress test report reviewed, dated 10/08/19: Lexiscan nuclear cardiac stress test negative for ischemia. Gated SPECT images reveals normal myocardial thickening and wall motion. The LV ejection fraction is calculated at 64%. (2) CAD (coronary artery disease) Associated angina: unspecified whether angina present Coronary Disease- Associated Artery/Lesion type: [place] artery [place] vs. transplanted heart: [place] heart Qualified Code(s): I25.10 - Atherosclerotic heart disease of [place] coronary artery without angina pectoris (3) Hypertension Hypertension type: primary hypertension Qualified Code(s): I10 - Essential (primary) hypertension
[2025-03-13 08:47] LABS: C Reactive Protein 0.85 mg/dl (0-0.5); Chol HDL Ratio 6.3 (0-5); Cholesterol 139 mg/dl (0-200); HDL Cholesterol 22 mg/dl; LDL Cholesterol Calculated 78 mg/dl; Triglycerides 195 mg/dl (0-150); VLDL Cholesterol 39 mg/dl (0-30)
[2025-03-13 09:48] LABS: Estimated Average Glucose 131 mg/dl; Hemoglobin A1C 6.2 % (4.5-5.6)
--- NOTE | 2025-03-13 10:21 | Electrocardiogram Report ---
Test Reason : Blood Pressure : */* mmHG Vent. Rate : 63 BPM Atrial Rate : 63 BPM P-R Int : 172 ms QRS Dur : 160 ms QT Int : 456 ms P-R-T Axes : 61 -11 33 degrees QTcB Int : 466 ms Normal sinus rhythm Possible Left atrial enlargement Right bundle branch block Abnormal ECG When compared with ECG of 13-Mar-2025 00:33, (unconfirmed) No significant change was found Confirmed by Frank Davis ([id number]) on 03/13/2025 10:20:32 AM Referred By: REFERRED SELF Confirmed By: Frank Davis
--- NOTE | 2025-03-13 10:21 | Electrocardiogram Report ---
Test Reason : Blood Pressure : */* mmHG Vent. Rate : 62 BPM Atrial Rate : 62 BPM P-R Int : 166 ms QRS Dur : 148 ms QT Int : 438 ms P-R-T Axes : 63 -25 23 degrees QTcB Int : 444 ms Normal sinus rhythm Right bundle branch block Abnormal ECG When compared with ECG of 20-Jan-2024 12:42, No significant change was found Confirmed by Frank Davis ([id number]) on 03/13/2025 10:20:23 AM Referred By: REFERRED SELF Confirmed By: Frank Davis
--- NOTE | 2025-03-13 10:38 | Electrocardiogram Report ---
Test Reason : Blood Pressure : */* mmHG Vent. Rate : 62 BPM Atrial Rate : 62 BPM P-R Int : 172 ms QRS Dur : 148 ms QT Int : 458 ms P-R-T Axes : 58 -23 -9 degrees QTcB Int : 464 ms Normal sinus rhythm Right bundle branch block Abnormal ECG When compared with ECG of 13-Mar-2025 01:06, (unconfirmed) Inverted T waves have replaced nonspecific T wave abnormality in Inferior leads Confirmed by Frank Davis ([id number]) on 03/13/2025 10:36:01 AM Referred By: REFERRED SELF Confirmed By: Frank Davis
[2025-03-13 13:34] VITALS: BP 118/79; TEMP 97.7; O2SAT 97
[2025-03-13] MEDS: ATROPINE SULFATE 0.1 MG/ML 10ML SYR IV ONE (14:24)
[2025-03-13] MEDS: METOPROLOL TARTRATE 1 MG/ML VIAL IV ONE (14:24)
[2025-03-13] MEDS: PANTOprazole 40 MG TAB PO STA (14:24)
[2025-03-13] MEDS: DOBUTamine HCL 12.5 MG/ML 20 ML VIAL IV ONE (14:24)
[2025-03-13] MEDS: LIDOCAINE 5% 1 PATCH TD STA (14:24)
[2025-03-13] MEDS: IBUPROFEN 200 MG/10 ML UDC PO STA (14:25)
--- NOTE | 2025-03-13 15:15 | Discharge Summary ---
Discharge Summary Date of Service March 13, 2025 Principal Dx & Hospital Course #1 = Principal Diagnosis (1) Chest pain: 54-year-old male with past medical history significant for dyslipidemia, prediabetes, reactive airway disease, hypertension, history of CAD status post stent, tobacco use disorder, obesity, lumbar herniated nucleus pulposus, osteoarthritis of spine with radiculopathy, osteoarthritis of knee presents with chest pain. Patient says couple of days ago stopped mowing grass because of chest pain . Day before yesterday in the morning around 3 to 4 AM he woke up from sleep with chest pain in the middle of his chest radiating to the right side which lasted for about an hour and subsided. Tonight again at 11:30 PM patient was lying down when he had chest pain again same area severe in nature which prompted him to the ER. The pain was severe for 45 minutes and improved. Currently pain is mild. During pain he was feeling short of breath. Denies any nausea. No sweating. No blurred vision. No runny nose or sore throat. No fev ers. No abdominal pain. Normal bowel and bladder movements. Patient also complaining of numbness and some pain in the left leg going for a week. Patient says he has chronic lower back pain. He has a known history of CAD with stent placement to LAD in April 2020. He was seen and evaluated by cardiology and underwent a dobutamine stress echo which was negative for inducible ischemia. His serial cardiac enzymes and ecgs were unremarkable. He continued to complain of pain and symptoms were relived with NSAIDS and lidocaine patch. It is felt his symptoms are likely musculoskeletal. He will be discharged on ibuprofen 600mg TID x 1 week along with pantoprazole for stomach protection x 1 week. 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 He needs to follow up routinely with cardiology given his history of CAD. On day of discharge his symptoms were improving and he was hemodynamically stable. He was stable for discharge and will follow up with PCP in 1 week. Notes For Next Care Provider Ensure pt has cardiology follow up A1C was 6.2. Would recommend loom starter referral to assist with lifestyle management. Medication Changes From Visit New Medications 1. Ibuprofen 600mg every 8 hours for 1 week. This is to help with inflammation. 2. Pantoprazole 40mg by mouth once daily. This is to protect your stomach while taking ibuprofen. 3. Oxycodone 5mg every 6 hours as needed for severe pain. This is to be only utilized if pain is very severe. 4. Lidocaine patch, 4%, apply daily for 12 hrs and then remove for 12 hours until pain resolves. This is purchased Over the counter. Please ask the pharmacy staff to help you locate this in their pharmacy. Please continue all other medications as prescribed. Admission HPI Per Admitting Provider 54-year-old male with past medical history significant for dyslipidemia, prediabetes, reactive airway disease, hypertension, history of CAD status post stent, tobacco use disorder, obesity, lumbar herniated nucleus pulposus, osteoar thritis of spine with radiculopathy, osteoarthritis of knee presents with chest pain. Patient says couple of days ago stopped mowing grass because of chest pain . Day before yesterday in the morning around 3 to 4 AM he woke up from sleep with chest pain in the middle of his chest radiating to the right side which lasted for about an hour and subsided. Tonight again at 11:30 PM patient was lying down when he had chest pain again same area severe in nature which prompted him to the ER. The pain was severe for 45 minutes and improved. Currently pain is mild. During pain he was feeling short of breath. Denies any nausea. No sweating. No blurred vision. No runny nose or sore throat. No fevers. No abdominal pain. Normal bowel and bladder movements. Patient also complaining of numbness and some pain in the left leg going for a week. Patient says he has chronic lower back pain. Past medical history. As mentioned above Past surgical history. Repair of the right broken foot. Injection of the sacroiliac joint. Left heart catheterization. Social history. . Smoked 0.3 pack a day for 11 years. No alcohol use. No drug use. Family history. Father had throat cancer. CHF. Hypertension. Mother had fatal PA. Maternal grandmother had diabetes. Admission Exam Per Admitting Provider General-Not in distress Head- atraumatic Eyes- PERRL. ENT- oropharynx clear Neck- supple, no JVD. Lungs- clear to auscultation no wheezing or crackles Heart- regular rhythm; no murmur, no gallop. Abdomen- normal bowel sounds, soft, nontender, no distension Extremities- no pretibial edema, left calf tenderness present. No erythema seen Neuro- alert, oriented PERRL, no facial palsy; no dysarthria; moves extremities Discharge Exam Gen: WD/WN, NAD, A&O x3 HEENT: Normocephalic, atraumatic, conjunctivae moist, sclerae anicteric, mucous membranes moist, poor dentition Lung: Clear to Auscultation bilaterally, no wheezes/rales/rhonchi Heart: Regular rate, regular rhythm, no murmurs, rubs, or gallops +reproducible R sided chest pain pin point tenderness Abdomen: Soft, NT, ND +BS x 4 Extremities: No edema Skin: Warm, no rash, negative turgor. Updated Medication List Medication Instructions Recorded Confirmed Type aspirin 81 mg chewable tablet 81 mg PO QAM 07/27/18 03/13/25 History metoprolol succinate 50 mg 50 mg PO QAM 05/07/19 03/13/25 History tablet,extended release 24 hr clopidogrel 75 mg tablet 75 mg PO QAM #30 tabs 12/03/19 03/13/25 Rx nitroglycerin 0.4 mg sublingual 0.4 mg sublingual DIRECTED PRN 12/31/19 03/13/25 History tablet Chest Pain atorvastatin 80 mg tablet 80 mg PO QAM 02/02/20 03/13/25 History albuterol sulfate 90 mcg/actuation 2 puff inhalation Q4H PRN 08/22/23 03/13/25 History aerosol inhaler SOB/wheezing losartan 50 mg tablet 50 mg PO DAILY 06/18/24 03/13/25 History ibuprofen 600 mg tablet 600 mg PO Q8H 7 days #21 tabs 03/13/25 Rx oxycodone 5 mg tablet 5 mg PO Q6H PRN pain #5 tabs 03/13/25 Rx pantoprazole 40 mg tablet,delayed 40 mg PO DAILY 7 days #7 tabs 03/13/25 Rx release Hospital Stay Data Consultations 03/13/25 01:50 ED Decision to Admit Stat 03/13/25 08:00 Consult Cardiology Routine Diagnostic Imagining Performed 03/13/25 03/13/25 03/13/25 Range/Units 10:53 05:34 02:24 WBC 12.07 H (4.8-10.8) K/ul RBC 4.55 L (4.70-6.10) M/uL Hgb 13.6 L (14.0-18.0) g/dl POC Hgb (14.0-18.0) g/dl Hct 40.1 L (42.0-52.0) % POC Hct (42-52) % MCV 88.1 (80.0-100.0) fL MCH 29.9 (25.0-34.0) pg MCHC 33.9 (32.0-36.0) g/dL RDW Std Deviation 46.2 (36.4-46.3) fL RDW Coeff of [place] 14.3 (11.5-14.5) % Plt Count 187 (130-400) K/uL MPV 10.0 (9.4-12.4) fL Immature Gran % (Auto) 0.3 % Neut % (Auto) 65.0 % Lymph % (Auto) 27.3 % [place] % (Auto) 5.6 % Eos % (Auto) 1.5 % Baso % (Auto) 0.3 % Neut # (Auto) 7.85 H (1.40-6.50) K/uL Lymph # (Auto) 3.29 (1.20-3.40) K/uL [place] # (Auto) 0.67 H (0.11-0.59) K/uL Eos # (Auto) 0.18 (0.00-0.50) K/uL Baso # (Auto) 0.04 (0.00-0.20) K/uL Immature Gran # (Auto) 0.04 (0.01-0.20) K/uL ESR 22 H (0-20) mm/hr D-Dimer 230 (0-500) ug/L FEU POC Sodium (135-144) mmol/L Sodium 138 (136-145) mmol/L POC Potassium (3.3-5.0) mmol/L Potassium 3.9 (3.5-5.1) mmol/L POC Chloride (101-112) mmol/L Chloride 106 (98-107) mmol/L Carbon Dioxide 26 (21-32) mmol/L POC Total CO2 (24-31) mmol/L Anion Gap 6 (3-11) POC Anion Gap (16-25) mmol/L POC BUN (7-18) mg/dl BUN 12 (6-23) mg/dl Creatinine 0.94 (0.6-1.4) mg/dl POC Creatinine (0.6-1.3) mg/dl Est Cr Clr Drug Dosing 126.2 eGFR 96.33 BUN/Creatinine Ratio 12.8 (10-20) Glucose 93 (70-99(Fasting)) mg/dl POC Glucose (other) (70-99) mg/dl Estimat Average Glucose 131 mg/dl Hemoglobin A1c 6.2 H (4.5-5.6) % Calcium 8.5 L (8.6-10.3) mg/dl POC Ioniz Calcium Fatmata (1.12-1.32) mmol/l Magnesium 1.8 (1.7-2.4) mg/dl Total Bilirubin (0.2-1.0) mg/dl AST (13-39) U/L ALT (7-52) U/L Alkaline Phosphatase (34-104) U/L Troponin I High Sens 5.3 < 2.3 4.4 (0-20) pg/ml C-Reactive Protein 0.85 H (0-0.5) mg/dl Total Protein (6.0-8.3) gm/dl Albumin (3.4-5.0) gm/dl Globulin (2.5-4.0) gm/dl Albumin/Globulin Ratio (0.9-2) Triglycerides 195 H (0-150) mg/dl Cholesterol 139 (0-200) mg/dl LDL Cholesterol, Calc 78 mg/dl VLDL Cholesterol, Calc 39 H (0-30) mg/dl HDL Cholesterol 22 mg/dl Cholesterol/HDL Ratio 6.3 H (0-5) Lipase (11-82) U/L 03/13/13 03// Range/Units 00:49 00:31 WBC 10.08 (4.8-10.8) K/ul RBC 4.62 L (4.70-6.10) M/uL Hgb 13.9 L (14.0-18.0) g/dl POC Hgb 12.9 L (14.0-18.0) g/dl Hct 40.8 L (42.0-52.0) % POC Hct 38 L (42-52) % MCV 88.3 (80.0-100.0) fL MCH 30.1 (25.0-34.0) pg MCHC 34.1 (32.0-36.0) g/dL RDW Std Deviation 46.0 (36.4-46.3) fL RDW Coeff of [place] 14.2 (11.5-14.5) % Plt Count 198 (130-400) K/uL MPV 10.0 (9.4-12.4) fL Immature Gran % (Auto) 0.3 % Neut % (Auto) 54.7 % Lymph % (Auto) 37.3 % [place] % (Auto) 5.0 % Eos % (Auto) 2.2 % Baso % (Auto) 0.5 % Neut # (Auto) 5.52 (1.40-6.50) K/uL Lymph # (Auto) 3.76 H (1.20-3.40) K/uL [place] # (Auto) 0.50 (0.11-0.59) K/uL Eos # (Auto) 0.22 (0.00-0.50) K/uL Baso # (Auto) 0.05 (0.00-0.20) K/uL Immature Gran # (Auto) 0.03 (0.01-0.20) K/uL ESR (0-20) mm/hr D-Dimer (0-500) ug/L FEU POC Sodium 139 (135-144) mmol/L Sodium 137 (136-145) mmol/L POC Potassium 3.5 (3.3-5.0) mmol/L Potassium 3.6 (3.5-5.1) mmol/L POC Chloride 102 (101-112) mmol/L Chloride 106 (98-107) mmol/L Carbon Dioxide 26 (21-32) mmol/L POC Total CO2 24 (24-31) mmol/L Anion Gap 5 (3-11) POC Anion Gap 17.0 (16-25) mmol/L POC BUN 15 (7-18) mg/dl BUN 14 (6-23) mg/dl Creatinine 1.04 (0.6-1.4) mg/dl POC Creatinine 1.0 (0.6-1.3) mg/dl Est Cr Clr Drug Dosing Not Reportable eGFR 85.33 BUN/Creatinine Ratio 13.5 (10-20) Glucose 146 H (70-99(Fasting)) mg/dl POC Glucose (other) 143 H (70-99) mg/dl Estimat Average Glucose mg/dl Hemoglobin A1c (4.5-5.6) % Calcium 8.8 (8.6-10.3) mg/dl POC Ioniz Calcium [place] 1.13 (1.12-1.32) mmol/l Magnesium (1.7-2.4) mg/dl Total Bilirubin 0.3 (0.2-1.0) mg/dl AST 17 (13-39) U/L ALT 20 (7-52) U/L Alkaline Phosphatase 134 H (34-104) U/L Troponin I High Sens 5.4 (0-20) pg/ml C-Reactive Protein (0-0.5) mg/dl Total Protein 7.5 (6.0-8.3) gm/dl Albumin 4.0 (3.4-5.0) gm/dl Globulin 3.5 (2.5-4.0) gm/dl Albumin/Globulin Ratio 1.1 (0.9-2) Triglycerides (0-150) mg/dl Cholesterol (0-200) mg/dl LDL Cholesterol, Calc mg/dl VLDL Cholesterol, Calc (0-30) mg/dl HDL Cholesterol mg/dl Cholesterol/HDL Ratio (0-5) Lipase 18 (11-82) U/L Chest CTA 03/13/25 00:39 EXAM: CT angio chest PE protocol CLINICAL HISTORY: Chest Pain, eval for PE TECHNIQUE: Contiguous axial images were obtained from the neck base through the upper abdomen following intravenous administration of iodinated contrast material. Angiographic images were processed, 3D MIP images were acquired for interpretation. If IV contrast material had not been administered, the likelihood of detecting abnormalities relevant to the patient's condition would have been substantially decreased. Coronal and sagittal 3-D MIPs were likewise performed and indicated to increase the sensitivity of detectin diffuse clinically relevant pathology. CT scan was performed according to ALARA (as low as reasonable achievable). COMPARISON: None. FINDINGS: Adequate contrast bolus without evidence of pulmonary embolism. The central airways are patent. Dependent densities noted in both lungs The lungs are otherwise clear. No pleural effusion. The heart, aorta, and pulmonary arteries are of normal size and configuration. There are no appreciable coronary artery and aortic atherosclerotic calcifications. No pericardial effusion is identified. The thyroid is unremarkable. No mediastinal, hilar, or axillary lymphadenopathy is noted. No suspicious lytic or sclerotic osseous lesions are identified. IMPRESSION: No evidence of pulmonary embolism or pulmonary disease. Electronically signed by Fidel Smith 03-13-2025 01:[address] 03/13/25 03:22 EXAM: CT lumbar spine wo con CLINICAL HISTORY: lower back pain. numbness in left leg TECHNIQUE: Multiple contiguous axial images were obtained through the lumbar spine without IV contrast. Sagittal and coronal reformatted images were obtained from the axial data. CT scan was performed according to ALARA (as low as reasonable achievable). COMPARISON: None. FINDINGS: Loss of lumbar lordosis Degenerative changes involving lumbar spine in the form of multilevel marginal osteophytes, disc space reduction and facetal arthrosis. Post laminectomy status is noted at L3, L5 level. Interpedicular fixation screw are seen in situ without obvious loosening or fracture Severe bilateral facetal arthrosis are noted through L2-L3 to L5-S1 level. Lumbar vertebral bodies are maintained in height and alignment. No vertebral estructive changes are seen. Posterior disc osteophyte complex is noted at T12-L1 to L5-S1 level with indenting ventral thecal sac and causes bilateral lateral recess and neural foraminal narrowing at respective levels. Paravertebral soft tissues are unremarkable. IMPRESSION: 1. Lumbar spondylosis. 2. No acute fracture or dislocation. Electronically signed by Fidel Smith 03-13-2025 04:48 AM Venous Doppler Study 03/13/25 03:22 EXAM: US venous doppler LE LT CLINICAL HISTORY: left calf pain. TECHNIQUE: Ultrasound examination of the left lower extremity veins was performed in real time and duplex. One or more of the following were performed: spectral analysis, resistive index, waveform analysis, and pulsed Doppler. COMPARISON: None. FINDINGS: Normal phasic, non-pulsatile, and spontaneous flow is noted in the left common femoral, superficial femoral, popliteal and posterior tibial, and peroneal veins. Visualized veins of the left lower extremity demonstrate normal compressibility. No sonographic evidence of acute deep vein thrombosis (DVT) is detected in the visualized veins of the left lower extremity. Compression and Augmentation: All evaluated veins compress fully with applied transducer pressure. Augmentation of venous flow is noted with distal compression. Additional Findings: No evidence of intraluminal thrombus. IMPRESSION: No sonographic evidence of acute DVT detected in left common femoral, superficial femoral, popliteal and posterior tibial and peroneal veins, at the time of examination. Disclaimer: DVT could be missed early in the disease when clot burden is minimal. For patients with moderate and high pretest probability of DVT and negative ultrasound, the [employer] clinical guidelines recommend testing with a D-dimer assay or repeat ultrasound in 5-7 days. If symptoms worsen, the Society of radiologists in ultrasound recommends repeating ultrasound even earlier. Electronically signed by Harley Hadley 03-13-2025 05:58 AM Pending Results Patient Have Any Pending Studies at Discharge: No Discharge Instructions Given to Patient (Per Discharging Provider) MEDICATION CHANGES: New Medications 1. Ibuprofen 600mg every 8 hours for 1 week. This is to help with inflammation. 2. Pantoprazole 40mg by mouth once daily. This is to protect your stomach while taking ibuprofen. 3. Oxycodone 5mg every 6 hours as needed for severe pain. This is to be only utilized if pain is very severe. 4. Lidocaine patch, 4%, apply daily for 12 hrs and then remove for 12 hours until pain resolves. This is purchased Over the counter. Please ask the pharmacy staff to help you locate this in their pharmacy. Please continue all other medications as prescribed. SUMMARY OF TEST RESULTS: You were admitted to the hospital due to chest pain. You were seen by the policy services representative and underwent a stress test that was negative for decreased blood flow to the heart. You also underwent a resting echocardiogram (Ultrasound of heart) that was normal as well. It is felt that your Chest Pain is likely due muscle spasm OR inflammation of the cartilage between the ribs. We are treating this with anti inflammatories. PENDING TEST RESULTS: None RECOMMENDATIONS FOR FOLLOW-UP: Please follow up with your policy services representative as scheduled given your prior history of a cardiac stent. Please follow up with your Primary Care Provider as scheduled. If your chest pain persists despite our treatment please contact your primary care provider or seek the ED. Please stay well hydrated. You may also use a heating pad to your chest wall to help with pain. Your A1C was elevated at 6.2. This is a blood test that monitors how your blood sugar has been running for the last 3 months. Normal is below 5.7. This classifies you as "PRE DIABETIC." It is recommended that you work with diet and lifestyle changes to help reduce your A1C to prevent Diabetes in the future. Please ask your primary care provider to schedule you with a loom starter to help with this. OTHER INSTRUCTIONS: Seek medical attention if you have: * temperature above 101 * chest pain or trouble breathing * abdominal pain, nausea, vomiting * diarrhea, dark stools or bloody stools * any unanswered questions or concerns Call 911 if symptoms are severe. Please take good care of yourself. It has been a pleasure taking care of you. Please take care of yourself. If you have any questions regarding your recent hospitalization please contact [facility] and request Harrison Santosist @ [phone]. Total Time Total Time Spent Total Time Spent (In Minutes): 50 minutes Supervising Physician Co-Signing Physician Notes Patient seen and examined independently. Discussed with above provider. Patient was initiated on the trial of lidocaine patch and NSAID from which she reported significant improvement in the chest pain. His stress test is negative. He has reproducible chest wall pain which suggest this is likely musculoskeletal in nature. Patient was prescribed lidocaine patch, NSAIDs and Protonix at the time of the discharge. Patient to follow-up with PCP. I have reviewed the advanced practitioner's documentation, and I agree with, and take responsibility for the plan of care I spent a total of 30 minutes coordinating, documenting, and providing care for this patient excluding time spent in the performance of separately billed services. All of the aforementioned completed while collaborating with the assigned advanced practitioner for a full treatment plan
[2025-03-13 16:40] VITALS: PULSE 65
== END 2025-03-13 17:11 | disposition home or self-care (01) ==
LOC: EDINP 00:22 → ED 00:22 → 2N 03:22